=== PATIENT | male | born 1950 | race Caucasian/White ===

== ENCOUNTER 2017-08-19 14:00 | Outpatient (RCR) | payer MEDICARE, SELFPAY | END 2017-08-27 | LOC: PT 14:00 | PROVIDERS: Visit Provider Orthopaedic Surgery | DX: M47.812 Spondylosis without myelopathy or radiculopathy, cervical region (principal); M48.07 Spinal stenosis, lumbosacral region; M51.36 Other intervertebral disc degeneration, lumbar region | CPT/HCPCS: G8978; G8979; G8980; 97010; 97014; 97110; 97140; 97161; G0283 ==

== ENCOUNTER 2017-09-06 14:49 | Outpatient (RCR) | payer MEDICARE, SELFPAY | END 2017-09-06 14:50 | LOC: PT 14:49 | PROVIDERS: Family Provider Internal Medicine; Visit Provider Orthopaedic Surgery | DX: M47.812 Spondylosis without myelopathy or radiculopathy, cervical region (principal); M48.07 Spinal stenosis, lumbosacral region; M51.36 Other intervertebral disc degeneration, lumbar region | CPT/HCPCS: 97012 ==

== ENCOUNTER 2019-02-17 09:00 | Outpatient (RCR) | payer MEDICARE, SELFPAY ==
--- NOTE | 2019-04-06 11:47 | HMH.PTOPEV ---
PT Outpatient Evaluation Rehab PT Outpatient Evaluation Start: 02/14/19 15:09 Freq: Status: Active Protocol: Document 02/14/19 15:09 JOAQUIN (Rec: 02/14/19 15:18 JOAQUIN [id number]) Electronically Signed By Omar Lester, PT 02/14/19 15:09 Outpatient Therapy Subjective History Subjective History Pt reports h/o chronic LBP intermittently over the last ~ 2-3 years. Pt reports most recent exacerbation ~2-3 weeks , 'possibly from driving and lifting activities'. Pt reports improved s/s today, ' less intense right glut/ hamstring area pain', and R sided LBP, with intermittent radicular s/s into R lateral calf area. Chief Complaint Pain,Stiff,Paresthesia Symptom Type Ache,Sharp,Dull,Numbness, Tingling Symptoms Relieved By Rest/Positioning Symptoms Aggravated By Sitting,Bending/Stooping, Lifting Prior Functional Limitations None Current Functional Limitations Lifting,Housework,Driving, Sitting,Bending/Stooping Symptom Description Constant but Variable Level of pain today (0-10) 1 Pain scale - at its best (0-10) 1 Pain scale - at its worst (0-10) 7 Lumbopelvic Eval Posture Thoracic Spine Posture Standing Position Neutral Lumbar Spine Posture Standing Position Neutral Assistive device Assistive Devices None / NA Gait Observation General Gait Pattern Observation No Deviations/Normal Palapation tenderness right paraspinal tenderness Yes: 1-2/4 buttock tenderness Yes: 1/4 Lumbar/Sacral Palpation Findings Tenderness Accessory Movement L-spine Vertebrae Accessory Movements Central P/A [place] that Elicit Symptoms L4 right L5 right Range of Motion Lumbar Spine Active Flexion Range of 0-90 Motion (degrees) Lumbar Spine Active Extension Range of 0-30 Motion (degrees) Left Lumbar Spine Lateral Flexion Active 0-30 Range of Motion (degrees) Right Lumbar Spine Lateral Flexion 0-30 Active Range of Motion (degrees) Manual Muscle Test Bilateral Knee Extension Strength Grade 5 Normal Knee Flexion Strength Grade 5 Normal Hip Flexion Strength Grade 5 Normal Extensor Hallucis Longus Strength Grade 5 Normal Ankle Dorsiflexion Strength Grade 5 Normal Gastronemius/Soleus Strength Grade 5 Normal DTR Rt Patellar 1+ Lt Patella
== END 2019-02-17 09:05 | disposition home or self-care (01) ==
LOC: PT 09:00
DX: M54.31 Sciatica, right side (principal)
CPT/HCPCS: 97110; 97163

== ENCOUNTER → 2019-03-17 07:47 | Outpatient (CLI) | payer MEDICARE, SELFPAY ==
--- NOTE | 2019-03-17 07:49 | MR_ITS ---
MR lumbar spine wo con, MR 3-d myelogram/MRCP HISTORY: Low back pain radiating down right leg now with left-sided low back pain ITS.REASON: LUMBAGO OF MULTIPLE SITES IN SPINE WITH SCIATICA ORDERING PHYSICIAN: Ravi Rodrigez MD PATIENT AGE: 68 years Comparison: None TECHNIQUE: Standard multiplanar multiecho sequences are performed without contrast. 3-D MIP and myelographic images are also rendered and reviewed FINDINGS: There is normal alignment. The spinal cord ends at the T12-L1 level. T11-T12: Only imaged in the sagittal plane. Degenerative disc disease with minimal bulging disc causing narrowing of the canal abutting the cord with minimal effacement of the cord anteriorly T12-L1: Degenerative disc disease with minimal bulging discs along facet and ligamentum flavum hypertrophy with bilateral lateral recess and foraminal narrowing. Spinal stenosis with narrowing of the canal at 10 mm. There is a small right paracentral disc herniation with minimal superior extrusion at this level with severe right lateral recess and foraminal narrowing. There is some impingement upon the cauda equina. L1-L2: Degenerative disc disease with minimal bulging disc. There is a moderate-sized left paracentral disc herniation with superior extrusion causing severe left lateral recess and foraminal narrowing with impression upon the nerve roots on the left. There is borderline narrowing of the canal. L2-L3: Degenerative disc disease with bulging discs along with moderate facet and ligamentum flavum hypertrophy with severe bilateral lateral recess and moderate foraminal narrowing. The bulging disc is somewhat eccentric toward the left causing greater lateral recess narrowing on the left compared to the right side. There is narrowing of the canal. L3-L4: Degenerative disc disease with bulging disc and severe facet and ligamentous hypertrophy with severe bilateral foraminal narrowing severe bilateral lateral recess narrowing and severe canal stenosis of 8 mm. There is moderate to severe right foraminal narrowing and moderate left foraminal narrowing. L4-L5: Degenerative disc disease with bulging discs along facet hypertrophy with severe bilateral lateral recess narrowing and moderate bilateral foraminal narrowing. Canal stenosis is present at 2 mm. L5-S1: Degenerative disc disease with bulging disc with minimal broad-based central disc protrusion along with severe facet and ligamentous hypertrophy with severe bilateral lateral recess narrowing and canal stenosis of 10 mm. There is moderate bilateral foraminal narrowing. IMPRESSION: 1. Abnormal MRI of the lumbar spine. There is multilevel degenerative disc disease from T11 to S1 with multilevel canal stenosis and severe bilateral lateral recess narrowing with nerve root impingement at multiple levels. PLEASE SEE ABOVE FOR DETAILED DESCRIPTION AT EACH LEVEL. 2. There is a small right paracentral disc herniation with superior extrusion at T12-L1. 3. There is a moderate-sized left paracentral disc herniation with superior extrusion L1-L2
== END ==
PROVIDERS: PCP Internal Medicine Adolescent Medicine; Visit Provider Internal Medicine Adolescent Medicine
DX: M54.40 Lumbago with sciatica, unspecified side (principal)
CPT/HCPCS: 72148; 76376

== ENCOUNTER 2019-04-07 09:00 | Outpatient (RCR) | payer MEDICARE, SELFPAY ==
--- NOTE | 2019-04-03 09:46 | HMH.PTOPEV ---
PT Outpatient Evaluation Rehab PT Outpatient Evaluation Start: 04/03/19 08:53 Freq: Status: Active Protocol: Document 04/03/19 08:53 JOAQUIN (Rec: 04/03/19 09:46 JOAQUIN [id number]) Electronically Signed By Omar Lester, PT 04/03/19 08:53 Outpatient Therapy Subjective History Subjective History Pt reports h/o chronic LBP with most recent exacerbation beginning ~3 weeks ago. Pt reports L sided LBP, no radicular s/s w/this episode, and provocative w/L step-up and after riding tractor/mower . MRI shows multi-level degeneration throughout the lumbar spine. Chief Complaint Pain,Stiff,Weakness Symptom Type Ache,Dull Symptoms Relieved By Rest/Positioning,Heat Symptoms Aggravated By Sitting,Physical Activity, Lifting Prior Functional Limitations Lifting,Housework,Driving, Sitting Current Functional Limitations Lifting,Housework,Driving, Sitting Symptom Description Intermittent Level of pain today (0-10) 1 Pain scale - at its best (0-10) 0 Pain scale - at its worst (0-10) 6 Lumbopelvic Eval Posture Thoracic Spine Posture Standing Position Neutral Lumbar Spine Posture Standing Position Flattened Assistive device Assistive Devices None / NA Gait Observation General Gait Pattern Observation No Deviations/Normal Palapation tenderness left paraspinal tenderness Yes: 2-3/4 Lumbar/Sacral Palpation Findings Tenderness,Trigger Point, Muscle Guarding Accessory Movement L-spine Vertebrae Accessory Movements Central P/A [place] that Elicit Symptoms L3 left L4 left Range of Motion Lumbar Spine Active Flexion Range of 0-80 Motion (degrees) Lumbar Spine Active Extension Range of 0-20 Motion (degrees) Left Lumbar Spine Lateral Flexion Active 0-25 Range of Motion (degrees) Right Lumbar Spine Lateral Flexion 0-25 Active Range of Motion (degrees) Lumbar Spine ROM Limitations Soft Tissue Tightness,Pain Manual Muscle Test Bilateral Knee Extension Strength Grade 5 Normal Knee Flexion Strength Grade 5 Normal Hip Flexion Strength Grade 4 Good Hip External Rotation Strength Grade 4- Good- Hip Internal Rotation Strength Grade 4- Good- Extensor Hallucis Longus Strength Grade 5 Normal Ankle Dorsiflexion Strength Grade 5 Normal Gastronemius/Soleus Strength Grade 5 Normal DTR Rt Patellar
== END 2019-04-07 09:05 | disposition home or self-care (01) ==
LOC: PT 09:00
PROVIDERS: PCP Internal Medicine Adolescent Medicine; Visit Provider Internal Medicine Adolescent Medicine
DX: M54.40 Lumbago with sciatica, unspecified side (principal)
CPT/HCPCS: 97010; 97014; 97110; 97163; G0283

== ENCOUNTER → 2020-04-26 11:57 | Outpatient (CLI) | payer MEDICARE, SELFPAY ==
[2020-04-26 12:14] LABS: Basophils % 0.5 % (0.1-2.0); Eosinophils # 0.4 K/mm3 (0.0-0.4); Eosinophils % 5.4 % (0.1-12.0); Hematocrit 37.7 % (42.0-52.0); Hemoglobin 12.9 g/dL (14.1-18.0); Lymphocytes # 1.6 K/mm3 (0.7-4.5); Lymphocytes % 22.9 % (10-50); Mean Corpuscular HGB Conc 34.2 g/dL (31.8-35.4); Mean Corpuscular Hemoglobin 30.6 pg (27.0-31.2); Mean Corpuscular Volume 89.3 fl (80-94); Mean Platelet Volume 6.9 fl (7.4-10.4); Monocytes # 0.6 K/mm3 (0.1-1.0); Monocytes % 8.5 % (1.7-9.3); Neutrophils # 4.3 K/mm3 (1.8-7.8); Neutrophils % 62.7 % (37.0-80.0); Platelet Count 250 K/mm3 (142-424); Red Blood Count 4.22 M/mm3 (4.60-6.20); Red Cell Distribution Width 13.2 % (11.5-17.5); White Blood Count 6.8 K/mm3 (4.8-10.8)
[2020-04-26 12:40] LABS: Chloride 103 mmol/L (98-107); Potassium 4.8 mmoL/L (3.5-5.1); Sodium 140 mmol/L (136-145)
[2020-04-26 12:43] LABS: Alanine Aminotransferase 26 U/L (12-78); Alkaline Phosphatase 60 U/L (38-126); Anion Gap 10.8 mEq/L (5-15); Aspartate Amino Transferase 34 U/L (17-59); Bilirubin,Total 0.6 mg/dl (0.2-1.3); Blood Urea Nitrogen 18 mg/dl (9-20); Carbon Dioxide 31 mmol/L (22.0-30.0); Estimated Glomerular Filt Rate 74 ml/min (>60); GFR (African American) 89 ML/MIN (>60)
[2020-04-26 12:44] LABS: Albumin/Globulin Ratio 1.4 (1.1-1.8); Calcium 9.2 mg/dl (8.4-10.2); Globulin 2.8 g/dL (1.3-3.2); Glucose 67 mg/dl (74-100); Total Protein,Serum 6.8 g/dl (6.3-8.2)
== END ==
PROVIDERS: Visit Provider Internal Medicine Adolescent Medicine
DX: I10 Essential (primary) hypertension (principal)
CPT/HCPCS: 36415; 80053; 85025

== ENCOUNTER → 2020-08-28 10:24 | Outpatient (CLI) | payer MEDICARE, SELFPAY ==
[2020-08-29 12:22] LABS: Covid-19 Nasal PCR Sendout P&C Negative
== END ==
PROVIDERS: PCP Internal Medicine Adolescent Medicine; Visit Provider Internal Medicine Adolescent Medicine
DX: Z03.818 Encounter for observation for suspected exposure to other biological agents ruled out (principal)
CPT/HCPCS: U0004

== ENCOUNTER 2020-11-21 15:00 | Outpatient (RCR) | payer MEDICARE, SELFPAY | END 2020-11-21 15:05 | disposition home or self-care (01) | LOC: PT 15:00 | PROVIDERS: PCP Internal Medicine Adolescent Medicine; Visit Provider Orthopaedic Surgery | DX: M25.562 Pain in left knee (principal); Z96.652 Presence of left artificial knee joint | CPT/HCPCS: 97014; 97016; 97110; 97140; 97163; 97164; G0283 ==

== ENCOUNTER → 2021-06-06 12:40 | Outpatient (CLI) | payer MEDICARE, SELFPAY ==
[2021-06-06 12:56] LABS: Basophils % 0.4 % (0.1-2.0); Eosinophils # 0.4 K/mm3 (0.0-0.4); Eosinophils % 5.9 % (0.1-12.0); Hematocrit 40.9 % (42.0-52.0); Hemoglobin 14.2 g/dL (14.1-18.0); Lymphocytes # 1.4 K/mm3 (0.7-4.5); Lymphocytes % 21.7 % (10-50); Mean Corpuscular HGB Conc 34.6 g/dL (31.8-35.4); Mean Corpuscular Hemoglobin 30.8 pg (27.0-31.2); Mean Corpuscular Volume 88.9 fl (80-94); Mean Platelet Volume 7.1 fl (7.4-10.4); Monocytes # 0.7 K/mm3 (0.1-1.0); Monocytes % 10.3 % (1.7-9.3); Neutrophils % 61.7 % (37.0-80.0); Platelet Count 228 K/mm3 (142-424); Red Cell Distribution Width 13.3 % (11.5-17.5); White Blood Count 6.5 K/mm3 (4.8-10.8)
[2021-06-06 13:33] LABS: Chloride 102 mmol/L (98-107); Potassium 4.4 mmoL/L (3.5-5.1); Sodium 138 mmol/L (136-145)
[2021-06-06 13:36] LABS: Alanine Aminotransferase 34 U/L (12-78); Albumin Level 4.3 g/dl (3.5-5.0); Albumin/Globulin Ratio 1.5 (1.1-1.8); Alkaline Phosphatase 92 U/L (38-126); Anion Gap 12.4 mEq/L (5-15); Aspartate Amino Transferase 40 U/L (17-59); Bilirubin,Total 0.5 mg/dl (0.2-1.3); Blood Urea Nitrogen 12 mg/dl (9-20); Carbon Dioxide 28 mmol/L (22.0-30.0); Cholesterol 168 mg/dl (140-200); Estimated Glomerular Filt Rate 133 ml/min (>60); GFR (African American) 161 ML/MIN (>60); Globulin 2.9 g/dL (1.3-3.2); Total Protein,Serum 7.2 g/dl (6.3-8.2)
[2021-06-06 13:37] LABS: Calcium 9.2 mg/dl (8.4-10.2); Chol/HDL Ratio 3.9 (1-3.5); Glucose 94 mg/dl (74-100); HDL Cholesterol 43 mg/dl (40-60)
[2021-06-06 13:38] LABS: Triglycerides 434 mg/dl (30-150)
[2021-06-06 13:47] LABS: Direct LDL Cholesterol 75.46 mg/dL (100-129)
== END ==
PROVIDERS: Visit Provider Internal Medicine Adolescent Medicine
DX: I10 Essential (primary) hypertension (principal)
CPT/HCPCS: 36415; 80053; 80061; 85025

== ENCOUNTER → 2021-10-28 15:17 | Outpatient (CLI) | payer MEDICARE, SELFPAY | PROVIDERS: Visit Provider Internal Medicine Gastroenterology | DX: Z01.812 Encounter for preprocedural laboratory examination (principal); Z11.52 Encounter for screening for COVID-19; Z12.11 Encounter for screening for malignant neoplasm of colon | CPT/HCPCS: C9803; U0003; U0005 ==

== ENCOUNTER 2021-10-30 08:27 | Day surgery (SDC) | payer MEDICARE, SELFPAY ==
[2021-10-30 08:46] VITALS: BMI 32.3
[2021-10-30 08:51] VITALS: BP 132/72; PULSE 54; RESP 18; TEMP 36.3; O2SAT 96
--- NOTE | 2021-10-30 09:02 | P.PN_ITS ---
[facility] Anesthesia Checklist - Patient Identification Patient Identification: Arm Band - Structural Data Admitted From: Home Planned Operative Procedure/s: colonoscopy Consent for Planned Operative Procedure(s) Verified: Yes Verified Documents: Surgical Consent, History and Physical - NPO Status Verified Time NPO: 00:00 - Additional verifications Anesthesia Reactions: No - Airway Assessment C-Spine Mobility Assessed: Yes (mp2) TMJ Mobility Assessed: Yes Dentition: Good Dentition - Neurological Assessment Level of Consciousness: Awake, Alert - Anesthesia Plan Anesthesia Risk discussed: Yes Anesthesia Plan: Verified ASA Class: II Anesthesia Type: MAC [facility] History I have reviewed the patient's past medical history: Yes Medical History: Reports:: Hyperlipidemia, Hypertension Denies:: Cancer, Diabetes Mellitus Type 1, Diabetes Mellitus Type 2, Internal Pacemaker, MRSA, Seizures *Have you ever received a pneumonia vaccine?: No *Have you received a flu vaccine this season?: Yes Other Medical History: Reports: Arthritis Anesthesia experience/problems:: nac Laterality Cases: Bilateral: Arthroscopy Knee, Total Knee Replacement Other Surgeries: Yes: Colonoscopy. No: Pacemaker Amputation: No Fractures: No - *Social History Last grade of school completed: High school graduate Smoking Status: Current some day smoker Tobacco Type: cigars Alcohol Intake: current Alcohol Intake Frequency:: 3 or more drinks per day Substance Use Type: denies use *Occupational Status:: employed, retired Housing: house Household Members: spouse *Travel in the last 8 weeks: None Family Hx:: Hyperlipidemia, Hypertension
[2021-10-30 09:09] VITALS: O2SAT 96
[2021-10-30 09:30] VITALS: BP 111/68; PULSE 50; RESP 18; O2SAT 96
--- NOTE | 2021-10-30 09:31 | HMH.SCOPE ---
- Procedure: Date: 10/30/21 Patient Date of :: 1950 Procedure Performed:: Screening colonoscopy Indications:: History of Polyps Performing Provider:: Sally Lamb MD Referring Provider:: Brian Hernandez MD Sedation:: Propofol Procedure:: After placing the patient in the left lateral decubitus position, the colonoscopy was gently inserted into the rectum and under direct visualization advanced to the cecum which was identified by transillumination in the right lower quadrant, identification of the ileocecal valve, appendiceal orifice, and cecal strap. Color, texture, mucosa, and anatomy of the colon were carefully examined with the scope. Findings:: Anal canal: normal Rectum: normal Sigmoid colon: normal without polyps or inflammatory changes. Few scattered diverticuli noted. Descending colon: normal without polyps or inflammatory changes Splenic flexure: normal Transverse colon: normal without polyps or inflammatory changes Hepatic flexure: normal Ascending colon: normal without polyps or inflammatory changes Cecum: normal Terminal ileum: not visualized Impression: Normal colonoscopy with few scattered sigmoid diverticulosis Recommendations:: Follow up exam in Five years or so in view of history of polyps Complications:: None Estimated blood obtained (mL): 0
[2021-10-30 09:40] VITALS: BP 139/57; PULSE 58; RESP 18; O2SAT 96
[2021-10-30 09:50] VITALS: BP 129/77; PULSE 59; RESP 18; O2SAT 96
[2021-10-30 10:00] VITALS: BP 132/68; PULSE 51; RESP 18; O2SAT 96
== END 2021-10-30 10:00 | disposition home or self-care (01) ==
LOC: OUTP 08:29
PROVIDERS: PCP Internal Medicine Adolescent Medicine; Visit Provider Internal Medicine Gastroenterology
PROC: 0DJD8ZZ Inspection of Lower Intestinal Tract, Via Natural or Artificial Opening Endoscopic (ICD-10-PCS; CPT 45378; principal; 2021-10-30 09:30)
DX: Z12.11 Encounter for screening for malignant neoplasm of colon (principal); Z86.010 Personal history of colon polyps; K57.30 Diverticulosis of large intestine without perforation or abscess without bleeding; E78.5 Hyperlipidemia, unspecified; I10 Essential (primary) hypertension; M19.90 Unspecified osteoarthritis, unspecified site; Z82.49 Family history of ischemic heart disease and other diseases of the circulatory system; Z83.438 Family history of other disorder of lipoprotein metabolism and other lipidemia
CPT/HCPCS: G0121

== ENCOUNTER → 2022-02-02 10:48 | Outpatient (CLI) | payer MEDICARE, SELFPAY ==
--- NOTE | 2022-02-02 10:53 | XR_ITS ---
FINAL REPORT CLINICAL HISTORY: CERVICALGIA FINDINGS: CERVICAL SPINE Five views were obtained. The oblique views are suboptimal. There is no acute fracture. There are mild and moderate degenerative changes with multilevel osteophytes. There is facet arthropathy at multiple levels. There is anterolisthesis of C4 on C5. There is no soft tissue abnormality. IMPRESSION: Degenerative changes with no acute bony abnormality. Reviewed, Interpreted and Dictated by Deep Deras III, MD Transcribed by Ev Darby Authenticated and [facility]
== END ==
PROVIDERS: PCP Internal Medicine Adolescent Medicine; Visit Provider Internal Medicine Adolescent Medicine
DX: M54.2 Cervicalgia (principal)
CPT/HCPCS: 72050

== ENCOUNTER 2022-05-08 08:00 | Outpatient (RCR) | payer MEDICARE, SELFPAY | END 2022-05-08 08:05 | disposition home or self-care (01) | LOC: PT 08:00 | PROVIDERS: PCP Internal Medicine Adolescent Medicine; Visit Provider Anesthesiology Pain Medicine | DX: M47.812 Spondylosis without myelopathy or radiculopathy, cervical region (principal) | CPT/HCPCS: 20560; 97010; 97014; 97035; 97110; 97140; 97163; G0283 ==

== ENCOUNTER → 2022-06-01 13:19 | Outpatient (CLI) | payer MEDICARE, SELFPAY ==
--- NOTE | 2022-06-01 13:29 | XR_ITS ---
FINAL REPORT CLINICAL HISTORY: LEFT HIP PAIN COMPARISON: 03/08/2016 FINDINGS: LEFT HIP 2 views were obtained. There is no acute fracture or dislocation. There are mild degenerative changes in both hips. Moderate degenerative changes are seen in the lower lumbar spine. There is no soft tissue abnormality. IMPRESSION: Degenerative changes similar to the prior exam. Reviewed, Interpreted and Dictated by Deep Deras III, MD Transcribed by Jyothi Wylie Authenticated and [facility]
== END ==
PROVIDERS: PCP Nurse Practitioner Family; Visit Provider Nurse Practitioner Family
DX: M25.552 Pain in left hip (principal)
CPT/HCPCS: 73502

== ENCOUNTER 2022-07-21 15:00 | Outpatient (RCR) | payer MEDICARE, SELFPAY ==
--- NOTE | 2022-06-15 16:28 | HMH.PTOPWND ---
Rehab Outpt Wound Evaluation Rehab OP Wound Evaluation Start: 06/15/22 16:21 Freq: Status: Active Protocol: Document 06/15/22 16:21 CARLOTA (Rec: 06/15/22 16:28 PHORNE [id number]) E-signed By Jaxson Kathleen PT Subjective/History History History Pt is 72 yowm who presents with B LE x several years, worse with dependent positioning. He reports recent vacation that required significant walking and resulted in increased edema. He reports no pain or tenderness associated with the edema. He has PMH of R PKA, L TKA, and HTN. Subjective Subjective No pain this date, 0. 1+ pitting edema to B ankle and foot. mildly plantarflexed 1st ray noted on L foot incidentally. Lymphedema Eval Classification of Lymphedema Secondary Lymphedema Yes Stemmer's sign Stemmer's Sign no Stage of Lymphedema Lymphedema stages Stage I (Pitting edema, reduces w/ elevation, no fibrosis) Skin Changes Dry Skin Yes Discoloration of Skin Yes Other Changes Yes Affected Extremities Areas Affected by Lymphedema/Edema Right Lower Extremity,Left Lower Extremity Manual Lymphatic Drainage Treatment Area MLD Treatment Area Right Lower Extremity,Left Lower Extremity Wound Problems/Impairments Impairments Problems/Impairmments Impaired Endurance,Impaired Walking,Impaired Standing, Impaired Recreational Activities,Increased Edema, Lymphedema Present,Impaired Self Care/Self Management Prognosis Rehab Potential Good Clinical Impression Consistent with Diagnosis Yes Short Term Goals Number of Weeks 2 Decrease Edema Yes: 0 pitting edema Patient to Understand Lymphedema Yes Treatment and Exercises 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
--- NOTE | 2022-07-21 15:26 | HMH.RHREAS ---
Rehab Reassessment Rehab OP Re-assessment Start: 07/21/22 15:20 Freq: Status: Active Protocol: Document 07/21/22 15:21 PHOKEILA (Rec: 07/21/22 15:26 PHORNE [id number]) E-signed By Jaxson Kathleen, PT Rehab Re-assessment Subjective Subjective Pt reports he continues to have no pain in B LE at this time. I feel about the same, but my legs look so much better than they did. Objective Objective Notes Circumferential MEausrements: R LE total 295.0 cm L LE total 308.5 cm. No pitting edema noted this date. Assessment Progress Assessment Progressing as Expected Assessment Notes Pt has shown significant improvement in the pitting edema of B LE that was present initially. No tenderness to palpation noted and he is wearing compression as necessary. Patient goals met ST,2 LT,2,3,4,5 Goals Not Met none Revised Goals none Plan Plan Will D/C to follow HEP at this time and re-initiate treatment as needed. Frequency of Therapy 0 x/wk Duration of therapy 0 wks Time and Billing Re-Eval Time 14 Re-Eval Billing Units 1 PHYSICIAN CERTIFICATION: I certify the specified therapy services for Joe Lester are required, authorized, and reviewed every 30 days.
== END 2022-07-21 15:05 | disposition home or self-care (01) ==
LOC: PT 15:00
PROVIDERS: PCP Nurse Practitioner Family; Visit Provider Nurse Practitioner Family
DX: R60.0 Localized edema (principal); L98.9 Disorder of the skin and subcutaneous tissue, unspecified
CPT/HCPCS: 97140; 97162; 97164

== ENCOUNTER 2022-07-21 16:00 | Outpatient (RCR) | payer MEDICARE, SELFPAY | END 2022-07-21 16:05 | disposition home or self-care (01) | LOC: PT 16:00 | PROVIDERS: PCP Nurse Practitioner Family; Visit Provider Anesthesiology Pain Medicine | DX: M50.90 Cervical disc disorder, unspecified, unspecified cervical region (principal); M47.812 Spondylosis without myelopathy or radiculopathy, cervical region | CPT/HCPCS: 97140; 97163 ==

== ENCOUNTER → 2022-10-30 10:13 | Outpatient (POV) | payer MEDICARE, SELFPAY ==
[2022-10-30 10:17] VITALS: BP 140/68; PULSE 54; RESP 20; O2SAT 98; BMI 33.0
--- NOTE | 2022-10-30 11:43 | EXP.PAIN.OV ---
HPI Data of Consult Patient: new to practice Consult date: 10/30/22 Requesting Physician: Amy Forrester APRN Primary Care Provider: Felicity Jay APRN Consult Narrative Reason for consult: Low back pain, bilateral knee pain, neck pain History of present illness: Mr. Lester is a 72 year old male who presents today as a new patient. He is a referral from Felicity Jay's office. Today he rates his pain a 1 out of 10. Patient states he has low back pain along with bilateral knee pain and neck pain. Patient states he has been experiencing low back pain for approximately 3 to 4 years that is unrelated to any specific injury or trauma. He states this has progressed since and he does notice it on a more regular basis. Patient does describe this as a achy sensation that is worse with increased activity that is more prominent on the right side. Patient states that he did take a trip last fall that ended up requiring a lot of walking and he had significant difficulty with this. He states he frequently has to take multiple breaks in order to get some relief. Patient states he has also had bilateral knee replacements in the past. He states he had a right partial approximately 5 years ago and then later a left total replacement in 2019. Patient states he did really well with the right side and was still able to get down on his knees to do activities however following his left total replacement he did have increased stiffness and pain. Patient does state that his left knee is the more problematic joint. He states he often feels like he is shuffling with his feet due to his knee pain and frequently causes issues with stumbling. Patient does state his neck pain has been going on for some time as well and that he does lack mobility within this location and occasional aches and pains. Patient states he did go to [facility] in [place] who did injections with his neck however he did not notice significant benefit. Patient states he has tried [id number] medications and is currently prescribed Celebrex twice a day that does provide significant improvement of his pain symptoms. He also states he has not tried heat or ice in the past. Patient has tried topicals on rare occasions however this did not provide any additional relief. He has had physical therapy for his knees and back including dry needling that did provide temporary relief. Patient states he has also had injections in his knees before that did provide significant relief however this was before having them replaced. He states that when he is sitting he has no pain whatsoever and that he does tend to lean forward doing activities such as showering and shaving due to pain improvement in that positioning. Patient is not on any scheduled medications. His Jeanmarie is [phone]. CC: Amy Forrester APRN [facility] Disclaimer: The information contained in this section may have been updated after the patient was seen, as this information can be updated by other users. Medical History (Updated 10/30/22 @ 11:59 by Amy Forrester APRN) Arthritis Depression HLD (hyperlipidemia) HTN (hypertension) Surgical History (Updated 10/30/22 @ 10:37 by Anel Luz RN) H/O arthroscopic knee surgery Hx of colonoscopy Family History (Updated 10/30/22 @ 10:35 by Anel Luz RN) Other Hyperlipidemia Hypertension Social History (Updated 10/30/22 @ 10:37 by Anel Luz RN) Smoking Status: Current some day smoker tobacco type: cigars alcohol intake: current substance use type: denies use current occupational status: retired Travel in the last 8 weeks: None household members: spouse housing: house current occupational exposures/hazards: No caffeine: Yes Review of Systems Review of Systems Review of systems:: pertinent systems reviewed and negative unless documented below Review of systems (narrative): Review of Systems: General: No recent weight mace
== END ==
PROVIDERS: PCP Nurse Practitioner Family; Visit Provider Nurse Practitioner Family
DX: M51.36 Other intervertebral disc degeneration, lumbar region (principal); M24.28 Disorder of ligament, vertebrae; M48.062 Spinal stenosis, lumbar region with neurogenic claudication; M47.816 Spondylosis without myelopathy or radiculopathy, lumbar region; M25.561 Pain in right knee; M25.562 Pain in left knee
CPT/HCPCS: 99202; G0463

== ENCOUNTER 2022-11-06 11:11 | Day surgery (SDC) | payer MEDICARE, SELFPAY ==
[2022-11-06 11:30] VITALS: BP 144/66; PULSE 66; RESP 18; TEMP 37; O2SAT 97; BMI 33.0
[2022-11-06 13:25] VITALS: BP 168/85; PULSE 59; RESP 18; O2SAT 98
[2022-11-06 13:26] VITALS: BP 168/85; PULSE 59; RESP 18; O2SAT 98
--- NOTE | 2022-11-06 13:35 | EXP.PAIN.PRO ---
Procedure Date: 11/06/22 Time: 13:35 Anesthesiologist:: Jose Bueno MD Complications:: None Pre-procedure Diagnosis:: Degenerative disc disease of lumbar spine with lumbar spinal stenosis and neurogenic claudication symptoms Post-procedure Diagnosis:: Same Indications for Procedure:: This patient is a pleasant 72-year-old white male who we have been treating for low back pain with lumbar spinal stenosis and neurogenic claudication symptoms. He has increasing pain while walking and standing. MRI does show significant stenosis. We will do a lumbar pleural steroid injection with epidurogram today to assess levels of stenosis and candidacy for minimally base of lumbar decompression. Procedure Details:: Informed consent was obtained and the risk and benefits of the procedure was explained to the patient. The patient was taken to the procedure room. The patient was placed prone on the procedure table. The patient was prepped and draped in sterile fashion. C-arm fluoroscopy was used to view the lumbar spine. Skin and subcutaneous tissues were anesthetized using lidocaine. I placed an 18-gauge epidural needle and advanced into the L4-L5 interspace using fluoroscopic guidance and [id number] to air. After confirmation of needle placement in the epidural space with dye I injected 2 mL of lidocaine 1.5% with Depo-Medrol 80 mg. Patient tolerated the procedure well with no complications. Plan and Disposition:: Based on epidurogram patient does have significant stenosis at L3-L4 and L4-L5 and L5-S1. I do believe he would be a good candidate for minimally invasive lumbar decompression bilateral L3-4, 4 5 and L5-S1. We will follow-up with him in clinic to discuss further as patient wants to think about it.
[2022-11-06 13:37] VITALS: BP 147/66; PULSE 56; RESP 20
== END 2022-11-06 13:39 | disposition home or self-care (01) ==
PROVIDERS: PCP Nurse Practitioner Family; Visit Provider Anesthesiology
DX: M51.36 Other intervertebral disc degeneration, lumbar region (principal); M48.062 Spinal stenosis, lumbar region with neurogenic claudication
CPT/HCPCS: 62323; J1040; Q9966

== ENCOUNTER → 2022-11-25 08:51 | Outpatient (POV) | payer MEDICARE, SELFPAY ==
[2022-11-25 09:11] VITALS: BP 145/68; PULSE 62; RESP 18; O2SAT 98; BMI 33.0
--- NOTE | 2022-11-25 12:12 | EXP.PAIN.SOA ---
[facility] Pain Management SOAP Note Subjective:: Patient is a pleasant 72-year-old male who presents today for follow-up of lumbar epidural steroid injection with epidurogram at L4-L5 on 11/06/2022. We are currently treating the patient for degenerative disc disease of lumbar spine with lumbar radiculopathy symptoms, lumbar spinal stenosis with neurogenic claudication symptoms. Today he rates his pain a 4 out of 10. Patient states he initially got the day of the injection relief for several hours while the numbing medication was in however after that point he did not notice significant relief. Patient was found to have significant stenosis at L3-L4, L4-L5 and L5-S1 bilaterally. At our last visit we did discuss with him that he may benefit from a minimally invasive lumbar decompression however at that time he wanted to wait. Patient does describe his pain as an aching, throbbing sensation that is worse with increased activity. He states it does interfere with his ability to perform activities of daily living such as cooking or cleaning. He frequently has to stop and take multiple breaks with even the slightest activity such as doing the dishes. Patient states that leaning over or sitting relieves his pain symptoms. Patient has tried ofxe-jml-kewrygx medications such as Tylenol and ibuprofen along with muscle relaxers with no additional relief. Patient was prescribed compounding cream at our last visit however he states he has not noticed improvements at this point. His Jeanmarie is [id number]. Its been reviewed and appropriate. Review of Systems: General: No recent weight changes, no fever, no sleep disturbances Respiratory: No cough, no shortness of air, no recurring pulmonary infections Cardiovascular/peripheral vascular: No chest pain, no palpitations, no edema, no shortness of breath Gastrointestinal: No new onset incontinence, normal bowel movements reported Genitourinary: No new onset incontinence Musculoskeletal: Low back pain, leg pain Psychiatric: [Normal mood/affect] Neurological: [Denies weakness in extremities], [denies balance issues] Objective:: Physical Exam: General: Alert and oriented x3, no acute distress, pleasant and cooperative Lungs: Respirations even and unlabored, symmetrical chest expansion Eyes: PERRL Musculoskeletal: Flexion and extension of lumbar [spine] somewhat guarded secondary to pain, [antalgic gait noted] positive shopping cart sign Neurological: Speech clear, no gross sensory deficit Assessment:: Degenerative disc disease of lumbar spine with lumbar radiculopathy symptoms, spinal stenosis with neurogenic claudication symptoms, lumbar facet arthropathy, lumbar ligamentum flavum hypertrophy, low back pain, bilateral knee pain, neck pain Plan:: Patient continues to experience significant pain in his low back with limited range of motion of his lumbar spine. Patient's epidurogram did show significant narrowing in his lumbar spine at L3-4, L4-5 and L5-S1. I have discussed with the patient that he may benefit from the minimally invasive lumbar decompression procedure. Risk and benefits were discussed with the patient and he would like to proceed forward with this plan of care. He is not on any blood thinners. We will schedule him for a minimally invasive lumbar decompression bilaterally at L3-L4, L4-L5 and L5-S1. Patient has been instructed to contact the clinic with any concerns before the next appointment. Dr. Bueno has reviewed this note and agrees with this plan of care. This note was dictated using voice recognition software and make contain errors or omissions. [facility] Disclaimer: The information contained in this section may have been updated after the patient was seen, as this information can be updated by other users. Medical History Arthritis Depression HLD (hyperlipidemia) HTN (hypertension) Surgical History (Reviewed 11/06/22 @ 11:31 by Viviana Castellanos RN
== END ==
PROVIDERS: PCP Nurse Practitioner Family; Visit Provider Nurse Practitioner Family
DX: M51.16 Intervertebral disc disorders with radiculopathy, lumbar region (principal); M47.26 Other spondylosis with radiculopathy, lumbar region; M48.062 Spinal stenosis, lumbar region with neurogenic claudication; M25.561 Pain in right knee; M25.562 Pain in left knee
CPT/HCPCS: 99212; G0463

== ENCOUNTER → 2023-01-06 15:07 | Outpatient (CLI) | payer MEDICARE, SELFPAY ==
[2023-01-06 15:55] LABS: Basophils % 0.3 % (0.1-2.0); Eosinophils # 0.2 K/mm3 (0.0-0.4); Eosinophils % 3.1 % (0.1-12.0); Hematocrit 41.1 % (42.0-52.0); Hemoglobin 13.8 g/dL (14.1-18.0); Lymphocytes # 1.4 K/mm3 (0.7-4.5); Lymphocytes % 20.6 % (10-50); Mean Corpuscular HGB Conc 33.4 g/dL (31.8-35.4); Mean Corpuscular Hemoglobin 29.4 pg (27.0-31.2); Mean Platelet Volume 8.1 fl (7.4-10.4); Monocytes # 0.5 K/mm3 (0.1-1.0); Monocytes % 6.6 % (1.7-9.3); Neutrophils # 4.8 K/mm3 (1.8-7.8); Neutrophils % 69.4 % (37.0-80.0); Platelet Count 248 K/mm3 (142-424); Red Blood Count 4.68 M/mm3 (4.60-6.20); Red Cell Distribution Width 13.9 % (11.5-17.5); White Blood Count 6.9 K/mm3 (4.8-10.8)
[2023-01-06 16:45] LABS: Blood Urea Nitrogen 17 mg/dl (9-20); Calcium 9.1 mg/dl (8.4-10.2); Carbon Dioxide 31 mmol/L (22.0-30.0); Chloride 97 mmol/L (98-107); Estimated Glomerular Filt Rate 73 ml/min (>60); GFR (African American) 89 ML/MIN (>60); Glucose 124 mg/dl (74-100); Sodium 140 mmol/L (136-145)
== END ==
PROVIDERS: PCP Nurse Practitioner Family; Visit Provider Anesthesiology
DX: Z01.818 Encounter for other preprocedural examination (principal)
CPT/HCPCS: 36415; 80048; 85025

== ENCOUNTER 2023-01-08 06:02 | Day surgery (SDC) | payer MEDICARE, SELFPAY ==
[2023-01-07 15:13] VITALS: BMI 33.0
[2023-01-08 06:36] VITALS: BP 128/76; PULSE 55; RESP 18; TEMP 36.8; O2SAT 98
--- NOTE | 2023-01-08 07:06 | EXP.ANES.CKL ---
[facility] Disclaimer: The information contained in this section may have been updated after the patient was seen, as this information can be updated by other users. Medical History Arthritis Depression HLD (hyperlipidemia) HTN (hypertension) Surgical History H/O arthroscopic knee surgery Hx of colonoscopy Family History Other Hyperlipidemia Hypertension Social History (Updated 01/08/23 @ 06:36 by Guy Coleman RN) Smoking Status: Former smoker alcohol intake: never substance use type: denies use current occupational status: employed and retired Travel in the last 8 weeks: Inside the [place] household members: spouse housing: house current occupational exposures/hazards: No caffeine: Yes [facility] Anesthesia Checklist Patient Identification Patient Identification: Arm Band Structural Data Admitted From: Home Planned Operative Procedure/s: Lumbar decompression Consent for Planned Operative Procedure(s) Verified: Yes Verified Documents: Surgical Consent and History and Physical NPO Status Verified Time NPO: 00:00 Additional verifications Patient : No Anesthesia Reactions: No Hx Blood Transfusions: No Blood Transfusion Reaction: No Cephalosporin Allergy: No Previous Colonoscopy: No Airway Assessment C-Spine Mobility Assessed: Yes TMJ Mobility Assessed: Yes Dentition: Good Dentition Neurological Assessment Level of Consciousness: Awake, Alert, Appropriate and Follows Commands Hx Seizures: No Numbness or tingling in extremities: No Anesthesia Plan Anesthesia Risk discussed: Yes ASA Class: II Anesthesia Type: MAC
[2023-01-08 09:27] VITALS: BP 111/66; PULSE 64; RESP 20; TEMP 36.6; O2SAT 94
[2023-01-08 09:42] VITALS: BP 129/71; PULSE 66; RESP 20; TEMP 36.6; O2SAT 96
[2023-01-08 09:57] VITALS: BP 143/82; PULSE 59; RESP 20; TEMP 36.6; O2SAT 94
[2023-01-08 10:12] VITALS: BP 158/82; PULSE 56; RESP 20; TEMP 36.6; O2SAT 95
[2023-01-08 10:28] VITALS: BP 146/81; PULSE 57; RESP 20; TEMP 36.6; O2SAT 96
--- NOTE | 2023-01-08 12:37 | EXP.OP.NOTE ---
Date of procedure: 01/08/23 Pre-op Diagnosis:: Degenerative disc disease of lumbar spine with lumbar spinal stenosis and neurogenic claudication symptoms Post-op Diagnosis:: Same Procedure performed:: Minimally invasive lumbar decompression bilateral L3-L4 and L4-L5 Surgeon:: Jose Bueno MD HOOP RIVETING MACHINE OPERATOR:: Vicki Reyes Anesthesia: MAC Estimated blood loss (mL): 1 Clinical Note:: The patient is a pleasant 72-year-old white male who we are treating for degenerative disc disease of lumbar spine with lumbar spinal stenosis and neurogenic claudication symptoms. Based on MRI and epidurogram he does have significant stenosis at L3-L4 and L4-L5 bilaterally. He is more symptomatic on his right side. He presents today for minimally invasive lumbar decompression bilateral L3-L4 and L4-L5. Operative findings:: None Operative note:: Informed consent was obtained and the risk and benefits of the procedure was explained to the patient. The patient was taken to the operating room and placed prone on the procedure table. The patient was prepped and draped in sterile fashion. C-arm fluoroscopy was used to view the lumbar spine. The skin and subcutaneous tissues were anesthetized using lidocaine. A epidural needle was inserted and advanced into the L3-L4 interspace. After confirmation of needle placement in the epidural space, dye was injected in a contralateral oblique view. There was an epidurogram seen at L3-L4 and L4-L5. Significant stenosis was seen at L3-L4 and L4-L5. The skin and subcutaneous tissues again were anesthetized using lidocaine. An incision was made and a access trocar was inserted and advanced to contact at the superior aspect of the L4 lamina on the left side. And a contralateral oblique view the side was viewed. Using a bone rongeur and tissue sculptor we debulked bone from the L3-L4 and L4-L5 interspace on the left side. We then used the tissue sculptor to debulk ligament at the L3-L4 and L4-L5 interspace on the left side. We then moved over to the right side and debulked bone and ligament from L3-L4 and L4-L5 on the right side. There is opening of the stenosis at L3-L4 and L4-L5 bilaterally. The access trocar was removed. A total of 3 mL's of dye was used. There is good spread of dye above and below this level as well. We injected 80 mg Depo-Medrol through the epidural needle. The epidural needle was removed and dressings were placed. This encounter for exam is for normal comparison and control in a clinical research program Patient was taken to recovery in stable condition. Patient was discharged home neurologically intact and with good relief of pain symptoms. Plan and disposition: We will follow-up with this patient in 2 weeks. Will reevaluate symptoms at that time. Condition: stable Disposition: PACU Complications:: None
== END 2023-01-08 10:28 | disposition home or self-care (01) ==
PROVIDERS: PCP Nurse Practitioner Family; Visit Provider Anesthesiology
DX: M48.062 Spinal stenosis, lumbar region with neurogenic claudication (principal); Z00.6 Encounter for examination for normal comparison and control in clinical research program; M51.16 Intervertebral disc disorders with radiculopathy, lumbar region
CPT/HCPCS: 0275T; 96374; C1889; J1040

== ENCOUNTER → 2023-01-22 08:31 | Outpatient (POV) | payer MEDICARE, SELFPAY ==
--- NOTE | 2023-01-22 09:23 | A.OFFVIS_ITS ---
[facility] Pain Management SOAP Note Subjective:: Patient is a pleasant 72-year-old male that comes our clinic today for follow-up visit after receiving L3-4, L4-5 mild procedure. Patient reporting 70 to 80% improvement in his overall bilateral hip and leg radicular symptoms. However, patient is complaining of bilateral posterior hip pain. Low lumbar pain. 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 After this he noticed pain in the low lumbar and bilateral posterior hip pain. Upon examination he has extreme point tenderness over the bilateral sacroiliac joints. He has positive Kiana's test. Positive Gaenslen's test. Positive bilateral sacroiliac joint compression test. I discussed in detail with the patient regarding bilateral sacroiliac joint injections. Answered his questions. Patient states this bilateral low lumbar off midline back pain is different than the pain prior to the mild procedure. His Jeanmarie #[id number] has been reviewed and appropriate. Patient has tried and failed some conservative measures for this above said pain such as NSAIDs, exercising Tylenol, home exercise program. Objective:: Patient is awake alert [place] x3. In no acute distress. Flexion-extension lumbar spine somewhat guarded secondary to pain. Deep tendon reflexes upper and lower extremities normal. Motor strength upper and lower extremities normal. There is no gross sensory deficit. Gait is normal. Assessment:: Degenerative disc disease lumbar spine multilevels. Lumbar spinal stenosis. Lumbar radiculopathy. Bilateral sacroiliitis. Plan:: We will plan bilateral sacroiliac joint injection. I discussed in detail with the patient regarding the injections. Answered his questions. He wishes to proceed. [facility] Disclaimer: The information contained in this section may have been updated after the patient was seen, as this information can be updated by other users. Medical History Arthritis Depression HLD (hyperlipidemia) HTN (hypertension) Surgical History H/O arthroscopic knee surgery Hx of colonoscopy Family History Other Hyperlipidemia Hypertension Social History (Updated 01/08/23 @ 06:36 by Guy Coleman RN) Smoking Status: Former smoker alcohol intake: never substance use type: denies use current occupational status: employed and retired Travel in the last 8 weeks: Inside the [place] household members: spouse housing: house current occupational exposures/hazards: No caffeine: Yes
[2023-01-22 09:58] VITALS: BP 144/69; PULSE 55; RESP 19; O2SAT 99; BMI 33.0
== END ==
PROVIDERS: PCP Nurse Practitioner Family; Visit Provider Nurse Anesthetist, Certified Registered
DX: M51.16 Intervertebral disc disorders with radiculopathy, lumbar region (principal); M48.061 Spinal stenosis, lumbar region without neurogenic claudication; M46.1 Sacroiliitis, not elsewhere classified
CPT/HCPCS: 99212; G0463

== ENCOUNTER 2023-02-02 08:30 | Day surgery (SDC) | payer MEDICARE, SELFPAY ==
[2023-02-02 08:52] VITALS: BP 145/77; PULSE 59; RESP 18; TEMP 36.5; O2SAT 96; BMI 33.0
[2023-02-02 09:22] VITALS: BP 137/95; PULSE 58; RESP 18; O2SAT 96
--- NOTE | 2023-02-02 09:26 | P.PCN_ITS ---
Procedure Date: 02/02/23 Time: 09:20 Anesthesiologist:: Thomas Villalba CRNA Complications:: None Pre-procedure Diagnosis:: Bilateral sacroiliitis. Post-procedure Diagnosis:: Same. Indications for Procedure:: Patient is a very pleasant 72-year-old male that comes our clinic today for bilateral sacroiliac joint injections. Upon examination patient has extreme point tenderness over the bilateral sacroiliac joints. Patient has positive Kiana's test. Positive Gaenslen's test. Patient has difficulty transitioning from sitting to standing. He rates his pain 7/10 Procedure Details:: Informed consent was obtained and the risks and benefits of the procedure were explained to the patient.~ The patient was taken to the procedure room and noninvasive monitors were placed including a noninvasive blood pressure cuff and pulse oximeter.~ The patient was placed prone on the procedure table. Both hips were cleansed using Betadine as a cleansing solution. C-arm fluoroscopy was used to view the right sacroiliac joint.~ The skin and subcutaneous tissues were anesthetized using lidocaine 1.5% and a 25-gauge needle.~ After this, a 22-gauge spinal needle was inserted under fluoroscopic guidance into the inferior aspect of the right sacroiliac joint.~ Omnipaque dye was injected and good spread was seen throughout the joint.~ After this, approximately 5 mL of bupivacaine, 0.25% and Depo-Medrol, 40 mg was incrementally injected into the right sacroiliac joint. We then moved to the left sacroiliac joint.~ The skin and subcutaneous tissues were anesthetized using lidocaine 1.5% and a 25-gauge needle.~ After this, a 22- gauge spinal needle was inserted under fluoroscopic guidance into the inferior aspect of the left sacroiliac joint.~ Omnipaque dye was injected and good spread was seen throughout the joint. After this, approximately 5 mL of bupivacaine, 0.25% and Depo-Medrol, 40 mg was incrementally injected into the left sacroiliac joint.~ The patient tolerated the procedure well with no complications. Plan and Disposition:: Patient was discharged without incident.
[2023-02-02 09:33] VITALS: BP 126/94; PULSE 55; RESP 18; O2SAT 96
== END 2023-02-02 09:33 | disposition home or self-care (01) ==
PROVIDERS: PCP Nurse Practitioner Family; Visit Provider Nurse Anesthetist, Certified Registered
DX: M46.1 Sacroiliitis, not elsewhere classified (principal)
CPT/HCPCS: 27096; G0260; J1040

== ENCOUNTER → 2023-02-17 09:37 | Outpatient (POV) | payer MEDICARE, SELFPAY ==
--- NOTE | 2023-02-17 10:06 | EXP.PAIN.SOA ---
[facility] Pain Management SOAP Note Subjective:: Patient is a pleasant 72-year-old male who presents today for follow-up of bilateral SI injections on 02/02/2023. We are currently treating the patient for degenerative disc disease of lumbar spine with lumbar radiculopathy symptoms, lumbar spinal stenosis with neurogenic claudication symptoms, status post minimally invasive lumbar decompression. Today he rates his pain a 8 out of 10. 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 Patient states following this he did actually work with a skid steer that caused significant pain. Today he states that he does have pain in his low back along both sides and radiating into his bilateral hips and down his upper thighs. Patient does state that his low back is still doing pretty good overall and will occasionally bother him following his lumbar decompression. Patient states that some days he is able to walk for longer periods of time without taking as many breaks however this does change from a day-to-day basis. Patient states that he does still frequently catch himself leaning when doing activities such as the dishes. Patient is not on any scheduled medications. His Jeanmarie is [id number]. Its been reviewed and appropriate. Patient has tried jclw-jtf-dkorqvx medications such as Tylenol and ibuprofen along with muscle relaxers with no additional relief.? Patient was prescribed compounding cream at our last visit however he states he has not noticed improvements at this point.? His Jeanmarie is [id number].? Its been reviewed and appropriate. Review of Systems: General: No recent weight changes, no fever, no sleep disturbances Respiratory: No cough, no shortness of air, no recurring pulmonary infections Cardiovascular/peripheral vascular: No chest pain, no palpitations,? no edema, no shortness of breath Gastrointestinal: No new onset incontinence, normal bowel movements reported Genitourinary: No new onset incontinence Musculoskeletal: Low back pain, bilateral hip pain Psychiatric: [Normal mood/affect] Neurological: [Denies weakness in extremities], [denies balance issues] Objective:: Physical Exam: General: Alert and oriented x3, no acute distress, pleasant and cooperative Lungs: Respirations even and unlabored, symmetrical chest expansion Eyes: PERRL Musculoskeletal: Flexion and extension of lumbar [spine] somewhat guarded secondary to pain, [antalgic gait noted] point tenderness along bilateral SIs with positive bilateral Kiana's, Stepan's, Gaenslen's, compression and distraction exam Neurological: Speech clear, no gross sensory deficit Assessment:: Degenerative disc disease of lumbar spine with lumbar radiculopathy symptoms, lumbar spinal stenosis with neurogenic claudication symptoms, status post minimally invasive lumbar decompression, sacroiliitis Plan:: Patient is experiencing worsening pain in his low back bilaterally with radiating symptoms into his hips and upper thighs. Patient did have limited range of motion and a positive bilateral SIs during today's exam. I have discussed with the patient that he may benefit from repeat SI injections however at this time he would like to wait. We will follow-up with the patient in 1 month for reevaluation of symptoms and plan of care. Patient has been instructed to contact the clinic with any concerns before the next appointment. Dr. Bueno has reviewed this note and agrees with this plan of care. This note was dictated using voice recognition software and make contain errors or omissions. [facility] Disclaimer: The information contained in this section may have been updated after the patient was seen, as this information can be updated by other users. Medical History Arthritis Depression HLD (hyperlipidemia) H
[2023-02-17 12:32] VITALS: BP 146/81; PULSE 62; RESP 18; O2SAT 97; BMI 33.0
== END ==
PROVIDERS: PCP Nurse Practitioner Family; Visit Provider Nurse Practitioner Family
DX: M51.16 Intervertebral disc disorders with radiculopathy, lumbar region (principal); M48.062 Spinal stenosis, lumbar region with neurogenic claudication; M46.1 Sacroiliitis, not elsewhere classified
CPT/HCPCS: 99212; G0463

== ENCOUNTER → 2023-03-22 12:43 | Outpatient (CLI) | payer MEDICARE, SELFPAY ==
--- NOTE | 2023-03-22 12:48 | MR_ITS ---
FINAL REPORT TECHNIQUE: Multiplanar MR without contrast CLINICAL HISTORY: LEFT HIP PAIN. LOW BACK PAIN WITH BILATERAL LEG PAIN. PAIN WHEN LAYING, STANDING AND SITTING FOR LONG PERIODS. COMPARISON: 03/17/2019 FINDINGS: Sagittal images show normal vertebral height. Alignment is normal. There are discogenic marrow signal changes at multiple levels. There is new endplate edema at L2-3. T12-L1: Moderate diffuse disc bulge with moderate facet arthropathy. Moderate central canal stenosis and moderate bilateral neural foraminal narrowing. L1-2: Moderate to large diffuse disc bulge. Moderate facet arthropathy. Previously noted left lateral canal disc extrusion is no longer evident. L2-3: Moderate diffuse disc bulge with moderate facet arthropathy. Moderate central canal stenosis and neural foraminal narrowing. L3-4: Disc disease and facet arthropathy contributing to severe central canal stenosis, slightly worse. Moderate neural foraminal narrowing. L4-5: Moderate diffuse disc bulge and facet arthropathy. Severe central canal stenosis, slightly worse. Moderate bilateral neural foraminal narrowing. L5-S1: Moderate diffuse disc bulge and facet arthropathy. Moderate to severe central canal stenosis and neural foraminal narrowing. IMPRESSION: Severe diffuse degenerative changes resulting in advanced multilevel canal stenosis and neural foraminal narrowing, slightly worse. Previously noted disc extrusion at L1-2 is no longer evident. Reviewed, Interpreted and Dictated by Trever Galloway MD Transcribed by Opal Traylor Authenticated and [facility]
== END ==
PROVIDERS: PCP Nurse Practitioner Family; Visit Provider Nurse Practitioner Family
DX: M54.41 Lumbago with sciatica, right side; M54.42 Lumbago with sciatica, left side; M25.552 Pain in left hip
CPT/HCPCS: 72148; 76376

== ENCOUNTER → 2023-05-07 10:06 | Outpatient (CLI) | payer MEDICARE, SELFPAY ==
--- NOTE | 2023-05-07 10:16 | XR_ITS ---
FINAL REPORT CLINICAL HISTORY: SCOLIOSIS FINDINGS: SPINE THORACOLUMBAR STANDING (SCOLIOSIS) There is 14 degrees dextroscoliosis centered on T9. There is 13 degrees of levoscoliosis centered on L2. There are moderate to severe degenerative changes with multilevel osteophytes. IMPRESSION: Scoliosis as above with moderate to severe degenerative changes. Reviewed, Interpreted and Dictated by Deep Deras III, MD Transcribed by Opal Traylor Authenticated and [facility]
--- NOTE | 2023-05-07 10:16 | XR_ITS ---
FINAL REPORT CLINICAL HISTORY: SCOLIOSIS FINDINGS: LUMBAR SPINE Four views were obtained. There is no acute fracture. There are moderate to severe degenerative changes with multilevel osteophytes. There is levoscoliosis. There is no evidence of malalignment with flexion and extension maneuvers. IMPRESSION: Degenerative changes as detailed above. Reviewed, Interpreted and Dictated by Deep Deras III, MD Transcribed by Opal Traylor Authenticated and . [facility]
== END ==
PROVIDERS: PCP Nurse Practitioner Family; Visit Provider Neurological Surgery
DX: M41.9 Scoliosis, unspecified (principal); M54.50 Low back pain, unspecified
CPT/HCPCS: 72081; 72110

== ENCOUNTER → 2023-05-25 08:07 | Outpatient (CLI) | payer MEDICARE, SELFPAY ==
--- NOTE | 2023-05-25 08:11 | CT_ITS ---
FINAL REPORT TECHNIQUE: Thin section axial images were obtained through the lumbar spine without contrast. Sagittal and coronal reconstruction images were obtained from the axial data. Exam was performed using dose reduction techniques. CLINICAL HISTORY: SCOLIOSIS FINDINGS: There is mild levoscoliosis. Klein angle from L1-2 L5 measures 15 degrees. No acute fracture is identified. There is multilevel degenerative disc disease, most pronounced at L1-2 and L2-3. Paraspinal soft tissues are within normal limits. There is no paraspinal mass or fluid collection. IMPRESSION: Mild levoscoliosis. Multilevel degenerative disc disease. Reviewed, Interpreted and Dictated by Ana Murray MD Transcribed by Opal Traylor Authenticated and [facility]
== END ==
PROVIDERS: PCP Nurse Practitioner Family; Visit Provider Neurological Surgery
DX: M41.9 Scoliosis, unspecified (principal)
CPT/HCPCS: 72131

== ENCOUNTER 2023-05-28 08:30 | Outpatient (RCR) | payer MEDICARE, SELFPAY ==
--- NOTE | 2023-04-26 12:15 | HMH.PTOPWND ---
Rehab Outpt Wound Evaluation Rehab OP Wound Evaluation Start: 04/26/23 12:07 Freq: Status: Active Protocol: Document 04/26/23 12:08 CARLOTA (Rec: 04/26/23 12:15 CARLOTA [id number]) E-signed By Jaxson Kathleen, PT Subjective/History History History This is the initial PT eval for Joe Lester, 73 yowm who presents with c/o B LE edema increased x ~ 2 mos, R worse than L. He has hx of chronic B LE edema in the past several years, but this episode began with worsening overall mobility due to increased chronic LBP due to stenosis. He also reports he feels his compression stockings needed to be replaced which allowed his edema to increase. He reports mild increased pain with increase in edema, but no increased tenderness at this time. Subjective Subjective Current pain 3/10, at worst 6/ 10 in B LE. 0/4 TTP noted this date. 2+ pitting edema noted in B lower legs. Lymphedema Eval Classification of Lymphedema Secondary Lymphedema Yes Stemmer's sign Stemmer's Sign no Stage of Lymphedema Lymphedema stages Stage I (Pitting edema, reduces w/ elevation, no fibrosis) Skin Changes Dry Skin Yes Taut, Shiny Skin Yes Discoloration of Skin Yes Other Changes Yes Pain Scale Pain Scale (0-10) 6 Affected Extremities Areas Affected by Lymphedema/Edema Right Lower Extremity,Left Lower Extremity Manual Lymphatic Drainage Treatment Area MLD Treatment Area Right Lower Extremity,Left Lower Extremity Wound Problems/Impairments Impairments Problems/Impairmments Impaired Endurance,Impaired Gait Pattern,Impaired Walking, Impaired Standing,Impaired Lifting,Impaired Household Care,Impaired Recreational Activities,Increased Edema, Lymphedema Present,Subjective C/O Pain,Impaired Self Care/
--- NOTE | 2023-05-28 11:38 | HMH.RHREAS ---
Rehab Reassessment Rehab OP Re-assessment Start: 04/26/23 12:07 Freq: Status: Active Protocol: Document 05/28/23 11:31 CARLOTA (Rec: 05/28/23 11:37 [email or web address] [id number]) E-signed By Jaxson Kathleen PT Rehab Re-assessment Subjective Subjective Current pain 10. Pt reports he sees a difference in his edema and feels better with daily activities. He reports wearing compression garments daily. Objective Objective Notes Circumferential Measurements: R LE total is 300.5 cm which is -9.4 since IE. L LE total is 303.5 cm which is -12.1 cm since IE. Pain /10. No pitting edema noted Mild Fibrotic edema noted in B lower legs. Assessment Progress Assessment Progressing as Expected Assessment Notes Pt has shown significant reduction in overall edema and has improved his ability to perform some ADLs. Following all instructions well for hoem treatment. He continues to need skilled intervention to return to prior level of function. Patient goals met ST,2,3,4 LT,4,5 Goals Not Met LT,3,6,7 Plan Plan Continue per initial POC Frequency of Therapy 1 x/wk Duration of therapy 2-3 wks Time and Billing Re-Eval Time 14 Re-Eval Billing Units 1 PHYSICIAN CERTIFICATION: I certify the specified therapy services for Joe Lester are required, authorized, and reviewed every 30 days.
== END 2023-05-28 08:35 | disposition home or self-care (01) ==
LOC: PT 08:30
PROVIDERS: PCP Nurse Practitioner Family; Visit Provider Nurse Practitioner Family
DX: R60.0 Localized edema (principal)
CPT/HCPCS: 97140; 97163; 97164

== ENCOUNTER 2023-10-07 11:00 | Outpatient (RCR) | payer MEDICARE, SELFPAY | END 2023-10-07 12:00 | disposition home or self-care (01) | LOC: PT 11:00 | PROVIDERS: PCP Nurse Practitioner Family; Visit Provider Neurological Surgery | DX: M41.35 Thoracogenic scoliosis, thoracolumbar region | CPT/HCPCS: 97163; 97164; 97530 ==

== ENCOUNTER 2023-11-19 08:46 | Outpatient (CLI) | payer MEDICARE, SELFPAY ==
[2023-11-19 09:25] LABS: Basophils # 0.1 K/mm3 (0-0.2); Basophils % 0.7 % (0.1-2.0); Eosinophils # 0.2 K/mm3 (0.0-0.4); Eosinophils % 3.6 % (0.1-12.0); Hematocrit 41.8 % (42.0-52.0); Hemoglobin 13.9 g/dL (14.1-18.0); Lymphocytes # 1.3 K/mm3 (0.7-4.5); Lymphocytes % 19.1 % (10-50); Mean Corpuscular HGB Conc 33.3 g/dL (31.8-35.4); Mean Corpuscular Hemoglobin 31.2 pg (27.0-31.2); Mean Corpuscular Volume 93.6 fl (80-94); Mean Platelet Volume 8.1 fl (7.4-10.4); Monocytes # 0.5 K/mm3 (0.1-1.0); Monocytes % 7.2 % (1.7-9.3); Neutrophils # 4.6 K/mm3 (1.8-7.8); Neutrophils % 69.5 % (37.0-80.0); Platelet Count 234 K/mm3 (142-424); Red Blood Count 4.46 M/mm3 (4.60-6.20); Red Cell Distribution Width 13.7 % (11.5-17.5); White Blood Count 6.6 K/mm3 (4.8-10.8)
[2023-11-19 09:52] LABS: Hemoglobin A1C 5.6 % (4.0-6.0)
[2023-11-19 10:00] LABS: Albumin Level 4.4 g/dl (3.5-5.0); Albumin/Globulin Ratio 1.8 (1.1-1.8); Alkaline Phosphatase 68 U/L (38-126); Anion Gap 10.4 mEq/L (5-15); Bilirubin,Total 0.6 mg/dl (0.2-1.3); Blood Urea Nitrogen 14 mg/dl (9-20); Calcium 9.2 mg/dl (8.4-10.2); Carbon Dioxide 28 mmol/L (22.0-30.0); Chloride 102 mmol/L (98-107); Chol/HDL Ratio 4.2 (1-3.5); Cholesterol 154 mg/dl (140-200); Estimated Glomerular Filt Rate 111 ml/min (>60); GFR (African American) 134 ML/MIN (>60); Globulin 2.4 g/dL (1.3-3.2); Glucose 106 mg/dl (74-100); HDL Cholesterol 37 mg/dl (40-60); Potassium 4.4 mmoL/L (3.5-5.1); Sodium 136 mmol/L (136-145); Total Protein,Serum 6.8 g/dl (6.3-8.2); Triglycerides 162 mg/dl (30-150); VLDL Cholesterol 32 mg/dL (0-40)
[2023-11-19 10:01] LABS: Alanine Aminotransferase 29 U/L (12-78); Aspartate Amino Transferase 30 U/L (17-59)
[2023-11-19 10:11] LABS: Direct LDL Cholesterol 71.97 mg/dL (100-129)
[2023-11-19 10:19] LABS: 25-OH Vitamin D, Total 53.7 ng/mL (30-100)
[2023-11-19 10:31] LABS: Prostate Specific Ag Screen 0.6 ng/ml (0.0-4.0); Thyroid Stimulating Hormone 1.69 uIU/mL (0.465-4.68)
[2023-11-19 10:50] LABS: Vitamin B12 303 pg/mL (239-931)
== END 2023-11-19 23:59 ==
LOC: LAB 08:48
PROVIDERS: PCP Nurse Practitioner Family; Visit Provider Nurse Practitioner Family
DX: R73.03 Prediabetes (principal); I10 Essential (primary) hypertension; E78.00 Pure hypercholesterolemia, unspecified; R40.0 Somnolence; M54.40 Lumbago with sciatica, unspecified side; E55.9 Vitamin D deficiency, unspecified; N40.1 Benign prostatic hyperplasia with lower urinary tract symptoms; Z12.5 Encounter for screening for malignant neoplasm of prostate
CPT/HCPCS: 36415; 80053; 80061; 82306; 82607; 83036; 84443; 85025; G0103

== ENCOUNTER → 2023-12-29 09:00 | Outpatient (CLI) | payer MEDICARE, SELFPAY | LOC: SL 12-30 09:02 | PROVIDERS: PCP Nurse Practitioner Family; Visit Provider Nurse Practitioner Family | DX: G47.33 Obstructive sleep apnea (adult) (pediatric) (principal); G47.36 Sleep related hypoventilation in conditions classified elsewhere | CPT/HCPCS: G0399 ==

== ENCOUNTER 2025-02-06 09:49 | Outpatient (CLI) | payer MEDICARE, SELFPAY ==
--- OUTSIDE RECORDS SUMMARY | 2024-08-05 17:00 | XMS_ITS ---
Author Organization [facility] Address [address] [place] [address] Care Team Providers Care Mess Attendant Name Role Phone Self Referral, Self Primary Care Provider Neisha Roy Unavailable Migration, Provider Unavailable Unavailable Allergies Allergen (clinical drug ingredient) Drug/Non Drug Allergy documented on EMR Reaction Allergy Type Onset Date Status OYSTERS (uncoded) stomach upset Allergy Active [facility] Encounter Medications Medication SIG (Take, Route, Frequency, Duration) Notes Start Date End Date Status hydroCHLOROthiazide 25 MG TAKE 1 TABLET BY MOUTH EVERY DAY for 90 Days Active Celecoxib 100 MG for 6 Days Ac tive FLUOXETINE (EQV-PROZAC) 20 MG TAKE 1 TABLET BY MOUTH EVERY DAY for 30 DAYS *Please review for potential replacement for e-prescription and drug interaction check* Active Lisinopril 40 MG for 90 Days N ot-Taking Sertraline HCl 25 MG for 30 Days Active Rosuvastatin Calcium *Please rev iew and pick correct strength-formula tion from [employer] options. If intended option is not shown, discontinue and re-order from Quick Search* Active traZODone HCl 100 MG 1 tab(s) orally 2 times a day Active Furosemide 40 MG for 30 Days A ctive amLODIPine Besylate *Please revi ew and pick correct strength-formula tion from [employer] options. If intended option is not shown, discontinue and re-order from Quick Search* Active Encounters Encounter Location Date Provider Diagnosis [facility] [address] [place] [address] 08/05/2024 Provider Migration Plan Of Treatment No Information Progress Notes * Virgilio KARUDOB:1950 (74 yo M)Acc No.[id number]:08/05/2024 Patient: Virgilio HALL Provider: Kristy escalante Migration :1950 A ge:74 Y S ex:Male Date:08/05/2024 Address:[facility] [address] [facility], [id number] Pcp:Self Self Referral Subjective: * Chief Complaints: * 1 . Multum To Medispan Conversion Encounter. * Medical History: * Medications: T aking amLODIPine Besylate , Notes to Pharmacist: *Please review and pick correct strength-formulation from Med[employer] options. If intended option is not shown, discontinue and re-order from Quick Search*, Taking Rosuvastatin Calcium , Notes to Pharmacist: *Please review and pick correct strength-formulation from Medispan options. If intended option is not shown, discontinue and re-order from Quick Search*, Taking traZODone HCl 100 MG Tablet 1 tab(s) orally 2 times a day , Taking Furosemide 40 MG Tablet , Taking Sertraline HCl 25 MG Tablet , Taking hydroCHLOROthiazide 25 MG Tablet TAKE 1 TABLET BY MOUTH EVERY DAY , Taking Celecoxib 100 MG Capsule , Taking FLUOXETINE (EQV-PROZAC) 20 MG TABLET TAKE 1 TABLET BY MOUTH EVERY DAY , Notes to Pharmacist: *Please review for potential replacement for e-prescription and drug interaction check*, Not-Taking Lisinopril 40 MG Tablet * Allergies: O YSTERS: stomach upset - Allergy - Criticality High. Objective: * Vitals: Assessment: Plan: * Treatment: * Billing Information: * Visit Code: * Procedure Codes: * Electronic signature of Prov ider Migration on 02/06/2025 at 09:54 AM EDT Sign off status: Pending * Provider: Kristy Shafer Date: 10/06/2023 Generated for Mila rodriguez/Davin/Kathryn on: 02/06/2025 09:54 AM EDT
--- OUTSIDE RECORDS SUMMARY | 2024-12-02 17:30 | XMS_ITS ---
Author Organization [facility] Address [address] [place] [address] Care Team Providers Care Math And Science Division Chair Name Role Phone Felicity Jay Primary Care Provider [phone] FELICITY JAY Unavailable Unavaila ble Migration, Provider Unavailable Unavailable Allergies Allergen (clinical drug ingredient) Drug/Non Drug Allergy documented on EMR Reaction Allergy Type Onset Date Status OYSTERS (uncoded) terrible stoma ch pains Allergy Active [facility] Conversion Encounter Medications Medication SIG (Take, Route, Frequency, Duration) Notes Start Date End Date Status ZEPBOUND PEN 5 MG/0.5 ML 5 MG SUBCUTANEO USLY ONCE A WEEK for 28 DAYS *Please review for potential replacement for e-prescription and drug interaction check* 11/27/2024 Active amLODIPine Besylate 10 MG 1 tab(s) orally once a day for 30 days Active Levocetirizine Dihydrochloride 5 MG 1 tab(s) orally once a day (in the evening) for 90 days 10/05/2024 Active NEBIVOLOL 10 MG TAKE 1 TABLET BY MOUTH EVERY DAY for 90 *Please review for potential replacement for e-prescription and drug interaction check* Active hydroCHLOROthiazide 25 MG 1 tab(s) orally once a day for 90 days Active Azelastine HCl 0.05 % 1 gtt in each affected eye 2 times a day for 30 days 12/17/2022 Active Tamsulosin HCl 0.4 MG 2 caps orally once a day for 30 days Active Celecoxib 100 MG 1 cap(s) orally 2 times a day for 90 days Active traZODone HCl 100 MG 1 tab(s) orally once a day (at bedtime) for 90 days Active Sertraline HCl 50 MG 1 tab(s) orally once a day for 90 days Active Sildenafil Citrate 100 MG 1 tab(s) orally once a day as needed for 30 days 03/26/2023 Active Vitamin C 500 MG 1 tab(s) orally once a day for 30 day(s) Active TUMERICK 500MG ONE TABLET PO ONCE A DAY *Please review for potential replacement for e-prescription and drug interaction check* Active Rosuvastatin Calcium 20 MG 1 tab(s) orally once a day for 90 days Active Montelukast Sodium 10 MG 1 tab(s) orally once a day for 90 days 08/16/2023 Active Azelastine HCl *Please review and pick correct strength-formula tion from [employer] options. If intended option is not shown, discontinue and re-order from Quick Search* Active Fish Oil 1000 MG 1 cap(s) orally daily Active Vitamin D3 1000 UNIT as directed orally once a day for 30 day(s) Active Encounters Encounter Location Date Provider Diagnosis [facility] [address] [place] [address] 12/02/2024 Provider Migration Nasal congestion R09.81 Assessments Encounter Date Diagnosis (ICD Code) Assessment Notes Treatment Notes Treatment Clinical Notes Section Notes 12/02/2024 Nasal congestion (ICD-10 - R09.81) Plan Of Treatment Medication Medication Name Sig Start Date Stop Date Notes ZEPBOUND PEN 5 MG/0.5 ML 5 MG SUBCUTANEO USLY ONCE A WEEK for 28 DAYS 11/27/2024 *Please review for potential replacement for e-prescription and drug interaction check* amLODIPine Besylate 10 MG 1 tab(s) orall y once a day for 30 days Levocetirizine Dihydrochloride 5 MG 1 tab(s) orally once a day (in the evening) for 90 days 10/05/2024 hydroCHLOROthiazide 25 MG 1 tab(s) orall y once a day for 90 days Progress Notes * Joe KAUR RDOB:[birth year] (74 yo M)Acc No.[id number]:12/02/2024 Patient: Joe HALL Provider: P boris Migration :1950 A ge:74 Y S ex:Male Date:12/02/2024 Address:[facility] [address] [place], [id number] Pcp:Felicity Jay Subjective: * Chief Complaints: * 1 . Multum To Medispan Conversion Encounter. * Medical History: * Medications: T aking Azelastine HCl , Notes to Pharmacist: *Please review and pick correct strength-formulation from [facility] options. If intended option is not shown, [...] interaction check*. * * Electronic signature of Sunny morris Migration on 02/06/2025 at 09:53 AM EDT Sign off status: Pending * Provider: Kristy escalante Migration Date: 0 12/02/2024 Generated for Mila rodriguez/Davin/Belkisitting on: 0 02/06/2025 09:53 AM EDT
--- OUTSIDE RECORDS SUMMARY | 2025-02-06 09:54 | XMS_ITS | Data Portability ---
Author Organization [facility] & [facility] ADMIN Address [address] [place] [address] Care Team Providers Care Skein Winding Operator Name Role Phone TORRI JAY Primary Care Provider TORRI JAY Referring Provider [phone] Assessment No assessment recorded. Plan of Treatment Reminders Order Date Submit Date Provider Last Modified By Organization Details Last Modified Time Details Appointments None record ed. Lab None record ed. Referral None record ed. Procedures None record ed. Surgeries None record ed. Imaging None record ed. Medication Orders None record ed. Patient TargetsNo targets recorded. Patient InstructionsNo instructions recorded. Reason for Referral None Reported. Procedures Surgical History Date Name Laterality Status Provider Name and Address Organization Details Recorded Time Nasal Endoscopy completed Augusto Vance [facility] & [place] 10/06/2023 11:51:03 Imaging Results None recorded. Procedure Notes None recorded. Medical Equipment None Reported. Allergies No known drug allergies Medications Name Sig Start Date Stop Date Status Note LastModified by Organization Details LastModified Time azelastine 0.05 % eye drops active Not Available Not Available Not Available azithromyci n 250 mg tablet 10/04 completed Not Available Not Available Not Available benzonatate 200 mg capsule TAKE 1 CAPSULE BY MOUTH THREE TIMES DAILY FOR 7 DAYS NEEDED FOR COUGH 10/06 completed Not Available Not Available Not Available sildenafil 100 mg tablet TAKE 1 TABLET BY MOUTH ONCE DAILY NEEDED FOR 30 DAYS 10/06 completed Not Available Not Available Not Available tamsulosin 0.4 mg capsule TAKE 2 CAPSULES BY MOUTH EVERY DAY active Not Available Not Available No t Available trazodone 100 mg tablet TAKE 1 TABLET BY MOUTH EVERY DAY AT BEDTIME active Not Available Not Available No t Available amlodipine 10 mg tablet TAKE 1 TABLET BY MOUTH EVERY DAY active Not Available Not Available No t Available sertraline 25 mg tablet TAKE 1 TABLET BY MOUTH EVERY DAY active Not Available Not Available No t Available montelukast 10 mg tablet TAKE 1 TABLET BY MOUTH EVERY DAY active Not Available Not Available No t Available hydrochloro thiazide 25 mg tablet TAKE 1 TABLET BY MOUTH EVERY DAY active Not Available Not Available No t Available celecoxib 100 mg capsule TAKE 1 CAPSULE BY MOUTH TWICE DAILY active Not Available Not Available No t Available rosuvastati n 20 mg tablet TAKE 1 TABLET BY MOUTH EVERY DAY active Not Available Not Available No t Available nebivolol 10 mg tablet TAKE 1 TABLET BY MOUTH EVERY DAY 10/06 completed Not Available Not Available Not Available Vitals Date Recorded Body height Body mass index (BMI) Body weight Body temperature Provider Name and Address Organization Details Last Updated DateTime 10/06/2023 180.34 cm 36 kg/m2 649660.83 g 98.6 [degF] [facility]aja [facility] [place] 10/06/2023 11:20:35 Social History None recorded. Functional Status None recorded. Mental Status None recorded. Family History Nothing Reported. Medical History Condition Response Allergies/Hayfever Y Heart Problems N None N Heart Conditions N Emphysema N Migraines N Thyroid Problems N Developmental Delay N Depression N Glaucoma N Anemia N Immune System Disorder N Anesthesia Complications N Heart Attack ([place]) N Anxiety Disorder N Diabetes N Bleeding Disorder N Arthritis Y Hearing Loss N Tuberculosis N Acid Reflux (GERD) N Hyperlipidemia Y Cancer N Stroke N Asthma N Sleep Disorder N GERD/Reflux N Heart Disease N Fibromyalgia N Headaches N Hypertension Y Speech Delay N Kidney Disease N Past Encounters Encounter ID Performer Location Encounter Start Date Encounter Closed Date Diagnosis/Indication Diagnosis SNOMED-CT Code Diagnosis ICD10 Code Diagnosis Note [id number] Antoinette Cruz MD [facility] [id number] [facility], [place] [address] 10/06/2023 11:01:45 10/06/2023 12:01:07 Posterior rhinorrhea 45274402 R09.82 Nasal congestion 6855082 0 R09.81 Explained I saw nothing concerning on nasal endoscopy today in the office. No mass/tumor /lesion/po lyp seen. Explained he is on a number of medication s that can cause nasal congestion ; especially at night. One of those being a beta ga. I would recommend he try using nasal cones at night. He can get these easily without prescripti on from [employer]. Informatio n was given to him about these. I am happy to allergy test him, but I am not sure this would change his current symptoms. He would like to hold off on the allergy testing for now. Should he change his mind, we will be happy to get him scheduled. Otherwise, I will see him back as needed. Health Concerns Section Related Observation LastModified by Organization Detai ls LastModified Time None Recorded Concern Status LastModified by Organization Details LastModified Time None Recorded Advance Directives Directive None Recorded Payers Insurance Date Sequence Insurance Name Policy Number Policy Sinha Covered Member ID Sinha Member ID Guarantor Name 10/06/2023 1 [employer] (MEDICARE REPLACEMENT/ ADVANTAGE - PPO) Joe Lester [id number] Joe Lester Notes Date Note Type Note Provider Name and Address Organization Details Recorded Time 10/06/2023 text/html 10/06/23- patient is here for nasal and chest congestion with trouble breathing from both sides. Patient states this has been going on his whole life but he got sick at [place] and he was having trouble breathing when lying down. He has a lot of phlegm with post nasal drainage, denies facial pain or pressure. He has a history of allergies and bronchitis. He has been on Azithromycin. He says as a child he was on allergy shots for a few years but is unsure why he stopped them. He has not been allergy tested recently. He uses flonase daily for a couple years and tried Montelukast for one month. He is not a smoker but will occasionally smoke marijuana. He feels as though his hearing is good. Antoinette Cruz MD [address], [place], [address], [facility] [place] & [place] 10/06/2023 15:36:06
--- OUTSIDE RECORDS SUMMARY | 2025-02-06 09:54 | XMS_ITS | Patient Health Record ---
Author Organization [facility] G[place] Address [address] [place] [address] Care Team Providers Care Obstetrics And Gynecology Professor Name Role Phone Felicity Jay Primary Care Provider FELICITY JAY Unavailable Unavaila ble Migration, Provider Unavailable Unavailable Allergies Allergen (clinical drug ingredient) Drug/Non Drug Allergy documented on EMR Reaction Allergy Type Onset Date Status OYSTERS (uncoded) terrible stoma ch pains Allergy Active Reason For Referral Reason [facility] [place] to take over from [facility] Diagnosis 1 Chronic allergic rhi nitis (J30.9) Referral Organization [facility] CAITLIN LOPEZ Referring Provider First Name Felicity Referring Provider Last Name Misty Referring Provider Speciality [facility] Referral Priority Routine Medications Medication SIG (Take, Route, Frequency, Duration) Notes Start Date End Date Status Nebivolol HCl 10 MG TAKE 1 TABLET BY MOUTH EVERY DAY for 90 Active Rosuvastatin Calcium 20 MG 1 tab(s) orally once a day for 90 days Active Zepbound 10 MG/0.5ML 0.5 mL Subcutaneous once a week for 28 days 01/23/2025 Active TUMERICK 500MG ONE TABLET PO ONCE A DAY *Please review for potential replacement for e-prescription and drug interaction check* Active traZODone HCl 100 MG 1 tab(s) orally once a day (at bedtime) for 90 days Active Vitamin C 500 MG 1 tab(s) orally once a day for 30 day(s) Active Montelukast Sodium 10 MG TAKE 1 TABLET B Y MOUTH DAILY for 90 Active Vitamin D3 1000 UNIT as directed orally once a day for 30 day(s) Active Levocetirizine Dihydrochloride 5 MG 1 tab(s) orally once a day (in the evening) for 90 days Active hydroCHLOROthiazide 25 MG 1 tab(s) orall y once a day for 90 days Active amLODIPine Besylate 10 MG 1 tab(s) orall y once a day for 30 days Active Azelastine HCl 0.05 % 1 gtt in each affected eye 2 times a day for 30 days 12/17/2022 Active Sildenafil Citrate 100 MG 1 tab(s) orall y once a day as needed for 30 days 03/26/2023 Active Sertraline HCl 50 MG TAKE 1 TABLET BY MOUTH DAILY for 90 Active Fish Oil 1000 MG 1 cap(s) orally daily Active Azelastine HCl *Please review and pick correct strength-formula tion from [employer] options. If intended option is not shown, discontinue and re-order from Quick Search* Active Celecoxib 100 MG TAKE 1 CAPSULE BY MOUTH TWICE DAILY for 90 Active Tamsulosin HCl 0.4 MG TAKE 2 CAPSULES BY MOUTH DAILY for 30 Active Immunizations Vaccine Route Administration Date Status Comme nts Boostrix Unknown 10/13/2017 Administered Pneumovax 23 IM Intramuscular 10/19/2022 Administered Social History Tobacco Use: Social History Observation Description Date Details (start date - stop date) Never Smoker NA - NA Smoking: Question Answer Notes Are you a: nonsmoker Problems Problem Type SNOMED Code ICD Code Onset Dates Problem Status W/U Status Risk Notes Problem 468029516773924 Lumbago with sci atica, right side (M54.41) Active confirmed Problem 506314370 Lumbago with sci atica, left side (M54.42) Active confirmed Problem 28655758 Other obstructiv e and reflux uropathy (N13.8) Active confirmed Problem 727144391 Localized edema (R60.0) Active confirmed Problem Osteoarthritis (074034607) Osteoarthritis (M19.90) Active confirmed Problem 09959693 Hypertension, essential (I10) Active confirmed Problem 56575319 Chronic allergic rhinitis (J30.9) Active confirmed Problem 309703989 BMI 33.0-33.9,ad ult (Z68.33) Active confirmed Problem 51267634 Left hip pain (M25.552) Active confirmed Problem 34192201 Other chronic pa in (G89.29) Active confirmed Problem 09030452 Skin lesion (L98.9) Active confirmed Problem 185142904 Erectile dysfunc tion, unspecified erectile dysfunction type (N52.9) Active confirmed Problem Voiding dysfunction (369513149) Voiding dysfunction (N39.8) Active confirmed Problem 01700499526717367 Lymphedema of both lower extremities (I89.0) Active confirmed Problem Obstructive sleep apnea syndrome (65110747) CEM (obstructive sleep apnea) (G47.33) Active confirmed Problem 243438768 Lower extremity edema (R60.0) Active confirmed Problem 58859061 Restless leg (G25.81) Active confirmed Problem 110130486 BMI 35.0-35.9,ad ult (Z68.35) Active confirmed Problem 838576622310 Daytime somnolen ce (R40.0) Active confirmed Problem 61791455 Sleep disorder (G47.9) Active confirme d Problem 015701664 Benign prostatic hyperplasia with lower urinary tract symptoms (N40.1) Active confirmed Problem 423271545 Pure hypercholesterolemia (E78.00) Active confirmed Problem 01769102 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 confirmed Problem 953075763750460 Obesity, Class I I, BMI 35-39.9 (E66.9) Active confirmed Problem 38768650 Major depressive disorder with single episode, 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) Active confirmed Problem 633727892 Lumbago of multi ple sites in spine with sciatica (M54.40) Active confirmed Problem 992485097 Decreased hearin g of both ears (H91.93) Active confirmed Problem 632139575 Alcohol dependen ce, daily use (F10.20) Active confirmed Problem 134729143 Gastroesophageal reflux disease, unspecified whether esophagitis present (K21.9) Active confirmed Problem 060659666 Cervical arthrit is (M47.812) Active confirmed Vital Signs Heart Rate 64 /min 02/06/2025 Temperature 97.0 degrees Fahrenheit 02/06/2025 Blood pressure diastolic 72 mm Hg 02/06/2025 Height 6 ft in 02/06/2025 Blood pressure systolic 118 mm Hg 02/06/2025 Weight 245 lbs 02/06/2025 BMI 33.22 kg/m2 02/06/2025 Encounters Encounter Location Date Provider Diagnosis [facility] [address] [place] [address] 12/02/2024 Provider Migration Nasal congestion R09.81 [facility] [address] [place] [address] 02/06/2025 Felicity Misty Obesity, Class II, B MS 35-39.9 E66.812 ; Weight loss counseling, encounter for Z71.3 ; BMI 33.0-33.9,adult Z68.33 and Chronic allergic rhinitis J30.9 [facility] [address] [address] 03/08/2024 Felicity Misty Toe pain, right M79. 674 and Toe pain, left M79.675 [facility] [address] [place] [address] 07/20/2024 Felicity Misty Bronchitis J40 and L oose stools R19.5 [facility] [place] [address] [place] [address] 10/05/2024 Felicity Misty Diastasis recti M62. 08 ; Abdominal wall defect, acquired M95.8 ; Nasal congestion R09.81 ; Obesity, Class II, BMI 35-39.9 E66.812 ; BMI 35.0-35.9,adult Z68.35 and Weight loss counseling, encounter for Z71.3 [facility] JESSICA [address] [address] 01/23/2025 Felicity Misty [facility] [place] [address] [place] [address] 04/03/2024 Felicity Misty [facility] [place] [address] [place] [address] 04/11/2024 Felicity Misty Chronic allergic rhinitis J30.9 [facility] [address] [address] 04/12/2024 Felicity Misty [facility] [place] [address] [address] 05/12/2024 Felicity Misty Chronic allergic rhinitis J30.9 [facility] [place] [address] [address] 06/14/2024 Felicity Misty [facility] [place] [address] [address] 07/14/2024 Felicity Misty [facility] [place] [address] [address] 07/24/2024 Felicity Misty [facility] [place] [address] [place] [address] 09/05/2024 Felicity Misty CEM (obstructive sle ep apnea) G47.33 ; Obesity, Class II, BMI 35-39.9 E66.9 ; Daytime somnolence R40.0 ; BMI 35.0-35.9,adult Z68.35 ; Gastroesophageal reflux disease, unspecified whether esophagitis present K21.9 ; Sleep disorder G47.9 and Hypertension, essential I10 [facility] [place] [address] [address] 10/31/2024 Felicity Misty [facility] [place] [address] [address] 11/27/2024 Felicity Misty [facility] [place] [address] [address] 11/27/2024 Felicity Misty [facility] [place] [address] [address] 12/25/2024 Felicity Misty [facility] [place] [address] [address] 01/12/2025 Felicity Misty [facility] [place] [address] [address] 01/16/2025 Felicity Misty Assessments Encounter Date Diagnosis (ICD Code) Assessment Notes Treatment Notes Treatment Clinical Notes Section Notes 03/08/2024 Toe pain, right (ICD-10 - M79.674) discussed that this could be multifactoral but not likely gout as it isn't localized to a synovial joint and is intermittent and associated with activity/positio janet. suspect related to some degree of neuropathy, either peripheral or radicular from his known LS spine disease. Encouraged appropriate socks and shoes, changes in positioning and monitoring for complications. Topical pain reliever recommended PRN. Consider prescription compounded product if OTC is not effective 03/08/2024 Toe pain, left (ICD-10 - M79.675) 04/11/2024 Chronic allergic rhinitis (ICD-10 - J30.9) 05/12/2024 Chronic allergic rhinitis (ICD-10 - J30.9) 07/20/2024 Bronchitis (ICD-10 - J40) Symptoms seem to be improving, start doxycycline only if symptoms progress over the next several days. Return precautions reviewed 07/20/2024 Loose stools (ICD-10 - R19.5) Recommend trial of fiber supplement every day and probiotic for the next 6 weeks. Consider testing if no improvement. 09/05/2024 CEM (obstructive sleep apnea) (ICD-10 - G47.33) 10/05/2024 Diastasis recti (ICD-10 - M62.08) CT imaging would be required to officially diagnose possible hernia but he is really asymptomatic at this point and has no significant visual defects. Recommend watchful waiting but strict return precautions and reasons for imaging were reviewed. 10/05/2024 Abdominal wall defect, acquired (ICD-10 - M95.8) 02/06/2025 Weight loss counseling, encounter for (ICD-10 - Z71.3) 02/06/2025 Obesity, Class II, BMI 35-39.9 (ICD-10 - E66.812) complicates all aspects of care, would certainly benefit from weight loss, good candidate for GLP1I. Will have to investigate insurance coverage 12/02/2024 Nasal congestion (ICD-10 - R09.81) 10/05/2024 Nasal congestion (ICD-10 - R09.81) Samples of nasal saline provided. Recommend use every night. Continue nasal sprays. Trial of Xyzal and continue follow-up with mechanical striper 02/06/2025 BMI 33.0-33.9,adult (ICD-10 - Z68.33) 09/05/2024 Obesity, Class II, BMI 35-39.9 (ICD-10 - E66.9) 09/05/2024 Daytime somnolence (ICD-10 - R40.0) 10/05/2024 Obesity, Class II, BMI 35-39.9 (ICD-10 - E66.812) complicates all aspects of care, would certainly benefit from weight loss, good candidate for GLP1I. Will have to investigate insurance coverage 02/06/2025 Chronic allergic rhinitis (ICD-10 - J30.9) 10/05/2024 BMI 35.0-35.9,adult (ICD-10 - Z68.35) 09/05/2024 BMI 35.0-35.9,adult (ICD-10 - Z68.35) 09/05/2024 Gastroesophageal reflux disease, unspecified whether esophagitis present (ICD-10 - K21.9) 10/05/2024 Weight loss counseling, encounter for (ICD-10 - Z71.3) 09/05/2024 Sleep disorder (ICD-10 - G47.9) 09/05/2024 Hypertension, essential (ICD-10 - I10) Plan Of Treatment Pending Test Test Name Order Date Sleep Study 09/05/2024 Physical Therapy 03/28/2019 C-CBC 08/29/2019 C-CMP 08/29/2019 C-LIPID PANEL 08/29/2019 C-HGBA1C 08/29/2019 Physical Therapy : Lymphedema 06/02/2022 Physical Therapy : Lymphedema 04/22/2023 M-Vitamin B12 11/17/2023 M-Vitamin D 25 Hydroxy 11/17/2023 M-COVID PCR SINGLE RAPID 08/28/2020 Insurance Providers Payer Name Payer Address Payer Phone Subscriber Number Group Number Insured Name Patient Relationship to Insured Coverage Start Date Coverage End Date [employer] MEDICARE [address] [address] [place] [address] [id number] Shemar Lester Self - patient is the insured Medications Administered Medication Instructions Date of Administration Dosage Notes Dexamethasone 4mg Injection 08/24/2023 4 mg Dexamethasone 4mg Injection 01/12/2024 4 mg Triamcinolone Acetonide 40mg Injection 10/12/2019 1 mL Medical (General) History Medical History History ICD Code HTN Sleep disorder Depressive d/o ED HLD BPH Degenerative arthritis Surgical History Surgery Date(Month/Year) R knee replacement 2016 Lt knee replacement 08/2020 colonoscopy 10/30/2021
--- OUTSIDE RECORDS SUMMARY | 2025-02-06 09:54 | XMS_ITS | Clinical Summary ---
Author Organization Healthcare Address [address] [place] [address] Care Team Providers Care Steamboat Inspector Name Role Phone Don Kim MD Primary Care Provider [phone] Family History Medical History Relation Name Comments Heart attack Father Relation Name Status Comments Father Social History Tobacco Use Types Packs/Day Years Used Date Smoking Tobacco: Never Assessed Sex and Gender Information Value Date Recorded Sex Assigned at Not on file Legal Sex Male 6:11 PM EDT Gender Identity Not on file Sexual Orientation Not on file Last Filed Vital Signs Vital Sign Reading Time Taken Comments Blood Pressure - - Pulse - - Temperature - - Respiratory Rate - - Oxygen Saturation - - Inhaled Oxygen Concentration - - Weight 103 kg (225 lb 15.9 oz) 05/29/2016 9:02 A M EDT Height 181.6 cm (5' 11.5 ) 05/29/2016 9:02 AM ED T Body Mass Index 31.08 05/29/2016 9:02 AM EDT Plan of Treatment Not on file Care Teams Steamboat Inspector Relationship Specialty Start Date End Date Don Kim MD [facility] [place] [address] PCP - General 01/10/21
--- OUTSIDE RECORDS SUMMARY | 2025-02-06 09:54 | XMS_ITS | Data Portability ---
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 [email or web address] Not available 09/03/2022 13:52:09 12/09/2023 12/09/2023 Closely monitor PSA trend. Medical management lower urinary symptoms with tamsulosin. Not available 12/10/2023 08:10:26 12/21/2024 12/21/2024 74-year-old male with history of benign prostatic hyperplasia presenting with urinary frequency, nocturia, and hesitancy. Persistent symptoms suggest inadequate response to tamsulosin. 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 PSA test follow-up required. Erectile Dysfunction And Orgasmia: Continue monitoring alongside antidepressant medication. Evaluate function and impact regularly. Psa Monitoring: Order PSA test. Complete at convenience. Primary care to fax results for ongoing surveillance. [email or web address] Not available 12/21/2024 13:59:23 Plan of Treatment Reminders Order Date Submit Date Provider Last Modified By Organization Details Last Modified Time Details Appointments None recorded. Lab urinalysis panel, auto 2024 025 [email or web address] 14 Counts Include 234 [facility] [place] Extended Services With [facility], [address] [place] [address] Dr [address], [place], [address], 5 13:49:47 surgical pathology study 2024 025 [facility], [address] [facility], [place], [address], 5 10:13:22 urinalysis panel, auto 2023 024 [email or web address] 14 Counts Include 234 [facility] [place] Extended Services With [facility], [address], [place], [address], 4 08:10:15 PSA, serum or plasma [address] (Laboratory), [address] [place], [address], 4 16:10:26 PSA, serum or plasma 2022 023 [facility] (Laboratory), [address] [place], [address], 3 14:49:13 Referral None recorded. Procedures None recorded. Surgeries None recorded. Imaging None recorded. Medication Orders finasteride 5 mg tablet 2024 025 [id number], [address] [place], [place], [id number], 5 13:49:54 silodosin 8 mg capsule 2024 025 CASEY [facility]87272, [address] [place], [place], [id number], 5 13:49:53 tamsulosin 0.4 mg capsule 2023 024 [email or web address] 14 [facility] #67441, [address] [place], [id number], 5 13:49:17 tamsulosin 0.4 mg capsule 2022 023 [email or web address] 14 [facility], [address] , [place], [id number], 13:49:17 Patient TargetsNo targets recorded. Patient Instructions Encounter Date Encounter Id Patient Instructions Last Modified By Organization Details Last Modified Time 09/03/2022 [id number] learning about healthy weight [email or web address] Not available 09/03/2022 13:50:51 11/17/2024 [id number] General Skin Protection: - SPF 30 or higher broad-spectrum sunscreen recommended with re-application every 2 hours - Sun protection measures: including wide-brimmed hat, sun-protective clothing, and avoidance of sun during peak hours of 10am-4pm - Avoid tanning beds as these can increase the chances of all 3 types of skin cancer -Please call us for appointment with any changing or worrisome lesions or skin conditions. [email or web address] Not available 11/17/2024 09:57:44 12/21/2024 [id number] learning about healthy weight [email or web address] Not available 12/21/2024 13:49:47 - Stop taking tamsulosin. - Start new medication as discussed for urinary symptoms. - Regular check-ups to see if symptoms are improving. - Get a PSA blood test done when you can and have the results sent to me. - Report any changes in your symptoms early. - Monitor your urinary symptoms and sexual function, and contact me if any new issues arise. [email or web address] Not available 12/21/2024 13:59:26 Reason for Referral None Reported. Results Created Date Observation Date Name Description Value Unit Range Abnormal Flag Note LastModifiedBy Organization Detail LastModifiedTime 12/09/1912/09/2023 urina lysis panel , auto Unknown Analyte Clean Catch Not Available [facility] Urology [place] Extended Services With [address], [place], [address], 12/09/2023 13:40:17 12/09/19 24 12/09/2023 urina lysis panel , auto Unknown Analyte Yellow Not Available [facility] [place] Extended Services With [address], [place], [address], 12/09/2023 13:40:17 12/09/19 24 12/09/2023 urina lysis panel , auto Unknown Analyte Clear Not Available [facility] Extended Services With [address], [place], [address], 12/09/2023 13:40:17 12/09/19 24 12/09/2023 urina lysis panel , auto Unknown Analyte 1.010 Not Available [facility] Extended Services With [address], [place], [address], 12/09/2023 13:40:17 12/09/19 24 12/09/2023 urina lysis panel , auto Unknown Analyte 1.003- 1.035 Not Available [facility] Extended Services With [address], [place], [address], 12/09/2023 13:40:17 12/09/19 24 12/09/2023 urina lysis panel , auto Unknown Analyte 7.0 Not Available [facility] Extended Services With [address], [place], [address], 12/09/2023 13:40:17 12/09/19 24 12/09/2023 urina lysis panel , auto Unknown Analyte 5.0-8. 0 Not Available [facility] Extended Services With [address], [place], [address], 12/09/2023 13:40:17 12/09/19 24 12/09/2023 urina lysis panel , auto Unknown Analyte Negati ve Not Available [facility] Extended Services With [address] [place], [address], 12/09/2023 13:40:17 12/09/19 24 12/09/2023 urina lysis panel , auto Unknown Analyte Negati ve Not Available [facility] Extended Services With [address] [place], [address], 12/09/2023 13:40:17 12/09/19 24 12/09/2023 urina lysis panel , auto Unknown Analyte Negati ve Not Available [facility] Extended Services With [address] [place], [address], 12/09/2023 13:40:17 12/09/19 24 12/09/2023 urina lysis panel , auto Unknown Analyte Negati ve Not Available [facility] Extended Services With [address] [place], [address], 12/09/2023 13:40:17 12/09/19 24 12/09/2023 urina lysis panel , auto Unknown Analyte Negati ve Not Available [facility] Extended Services With [address] [place], [address], 12/09/2023 13:40:17 12/09/19 24 12/09/2023 urina lysis panel , auto Unknown Analyte Negati ve Not Available [facility] Extended Services With [address] [place], [address], 12/09/2023 13:40:17 12/09/19 24 12/09/2023 urina lysis panel , auto Unknown Analyte Normal Not Available [facility] Extended Services With [address] [place], [address], 12/09/2023 13:40:17 12/09/19 24 12/09/2023 urina lysis panel , auto Unknown Analyte Normal Not Available [facility] Extended Services With [address] [place], [address], 12/09/2023 13:40:17 12/09/19 24 12/09/2023 urina lysis panel , auto Unknown Analyte Negati ve Not Available [facility] Extended Services With [address], [place], [address], 12/09/2023 13:40:17 12/09/19 24 12/09/2023 urina lysis panel , auto Unknown Analyte Negati ve Not Available [facility] Extended Services With [address] [place], [address], 12/09/2023 13:40:17 12/09/19 24 12/09/2023 urina lysis panel , auto Unknown Analyte Normal Not Available [facility] Extended Services With [address] [place], [address], 12/09/2023 13:40:17 12/09/19 24 12/09/2023 urina lysis panel , auto Unknown Analyte Normal 1 mg/dl Not Available [facility] Extended Services With [address], [place], [address], 12/09/2023 13:40:17 12/09/19 24 12/09/2023 urina lysis panel , auto Unknown Analyte Negati ve Not Available [facility] Extended Services With [address], [place], [address], 12/09/2023 13:40:17 12/09/19 24 12/09/2023 urina lysis panel , auto Unknown Analyte Negati ve Not Available [facility] Extended Services With [address] [place], [address], 12/09/2023 13:40:17 12/09/19 24 12/09/2023 urina lysis panel , auto Unknown Analyte Negati ve Not Available [facility]rology [place] Extended Services With [address], [place], [address], 12/09/2023 13:40:17 12/09/19 24 12/09/2023 urina lysis panel , auto Unknown Analyte Negati ve Not Available [facility]rology [place] Extended Services With [address], [place], [address], 12/09/2023 13:40:17 11/18/19 25 11/17/2024 SURGI ELIZABETH surgical SEE BELOW Becker topat holog y Repor t NAME: PIYUSH WADDELLSÁNCHEZ RYANNE PATH: [id number] PROCE DURE DATE: 11/17 SIGNO UT DATE: 11/21 Copy to: Diagn osis: 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 SOURC E OF SPECI MEN: SKIN, L SUP HELIX CLINI ELIZABETH INFOR MATIO N: R/O: BCC VS SCAR TISSU E. Gross Descr iptio n: The speci men consi sted of a singl e malik fragm ent which measu red 6 x 4 x 1 mm. All is submi tted in toto in one casse tte. Micro scopi c Descr iptio n: The epide rmis has an atten uated rete ridge marco rn. There is focal kerat inocy te atypi a and disor ganiz ation , consi stent with actin ic kerat osis. The dermi s has fibro sis with enlar ged colla gen bundl es and a brisk angio proli ferat ion. VIGNESH COREA MD Shanna d Out Date: 11/21 10:13 1 Not Available [facility] [address] [facility] [facility], [place], [address], 11/21/2024 10:13:22 12/22/19 25 12/21/2024 urina lysis panel , auto Unknown Analyte Clean Catch Not Available [facility] Extended Services With [address], [place], [address], 12/21/2024 13:12:32 12/22/19 25 12/21/2024 urina lysis panel , auto Unknown Analyte Yellow Not Available [facility] Extended Services With [address] [place], [address], 12/21/2024 13:12:32 12/22/19 25 12/21/2024 urina lysis panel , auto Unknown Analyte Clear Not Available [facility] Extended Services With [address] [place], [address], 12/21/2024 13:12:32 12/22/19 25 12/21/2024 urina lysis panel , auto Unknown Analyte 1.010 Not Available [facility] Extended Services With [address] [place], [address], 12/21/2024 13:12:32 12/22/19 25 12/21/2024 urina lysis panel , auto Unknown Analyte 1.003 - 1.030 Not Available [facility] Extended Services With [address] [place], [address], 12/21/2024 13:12:32 12/22/19 25 12/21/2024 urina lysis panel , auto Unknown Analyte 6.5 Not Available [facility] Extended Services With [address] [place], [address], 12/21/2024 13:12:32 12/22/19 25 12/21/2024 urina lysis panel , auto Unknown Analyte 5.0 - 8.0 Not Available [facility] Extended Services With [address] [place], [address], 12/21/2024 13:12:32 12/22/19 25 12/21/2024 urina lysis panel , auto Unknown Analyte Negati ve Not Available [facility] Extended Services With [address], [place], [address], 12/21/2024 13:12:32 12/22/19 25 12/21/2024 urina lysis panel , auto Unknown Analyte Negati ve Not Available [facility] Extended Services With [address], [place], [address], 12/21/2024 13:12:32 12/22/19 25 12/21/2024 urina lysis panel , auto Unknown Analyte Negati ve Not Available [facility] Extended Services With [address] [place], [address], 12/21/2024 13:12:32 12/22/19 25 12/21/2024 urina lysis panel , auto Unknown Analyte Negati ve Not Available [facility] Extended Services With [address], [place], [address], 12/21/2024 13:12:32 12/22/19 25 12/21/2024 urina lysis panel , auto Unknown Analyte Negati ve Not Available [facility] Extended Services With [address] [place], [address], 12/21/2024 13:12:32 12/22/19 25 12/21/2024 urina lysis panel , auto Unknown Analyte Negati ve Not Available [facility] Extended Services With [address] [place], [address], 12/21/2024 13:12:32 12/22/19 25 12/21/2024 urina lysis panel , auto Unknown Analyte Normal Not Available [facility] Extended Services With [address], [place], [address], 12/21/2024 13:12:32 12/22/19 25 12/21/2024 urina lysis panel , auto Unknown Analyte Normal Not Available [facility] Extended Services With [address] [place], [address], 12/21/2024 13:12:32 12/22/19 25 12/21/2024 urina lysis panel , auto Unknown Analyte Negati ve Not Available [facility] Extended Services With [address] [place], [address], 12/21/2024 13:12:32 12/22/19 25 12/21/2024 urina lysis panel , auto Unknown Analyte Negati ve Not Available [facility] Extended Services With [address] [place], [address], 12/21/2024 13:12:32 12/22/19 25 12/21/2024 urina lysis panel , auto Unknown Analyte Normal Not Available [facility] Extended Services With [address], [place], [address], 12/21/2024 13:12:32 12/22/19 25 12/21/2024 urina lysis panel , auto Unknown Analyte Normal Not Available [facility] Extended Services With [address] [place], [address], 12/21/2024 13:12:32 12/22/19 25 12/21/2024 urina lysis panel , auto Unknown Analyte Negati ve Not Available [facility] Extended Services With [address] [place], [address], 12/21/2024 13:12:32 12/22/19 25 12/21/2024 urina lysis panel , auto Unknown Analyte Negati ve Not Available [facility] [place] Extended Services With [address], [place], [address], 12/21/2024 13:12:32 12/22/19 25 12/21/2024 urina lysis panel , auto Unknown Analyte Negati ve Not Available [facility] Extended Services With [address] [place], [address], 12/21/2024 13:12:32 12/22/19 25 12/21/2024 urina lysis panel , auto Unknown Analyte Negati ve Not Available [facility] Extended Services With [address], [place], [address], 12/21/2024 13:12:32 Result Notes None recorded. Problems Name Problem SNOMED Code Status Onset Date Resolution Date Notes Provider Name and Address Organization Details Recorded Time Disorder of upper respirat ory system 372547046 Active 2015 From [employer];Pro vider: Don Kim;Sta tus: Active Not Available [facility] 6 05:42:01 Cough 50232478 Active 2015 From [employer];Pro vider: Don Kim;Sta tus: Active Not Available [facility] 6 05:42:01 Pain in right knee Active 2015 From [employer];Pro vider: Mary Mckee ;Status: Active Not Available [facility] 6 05:42:04 Derangem ent of medial meniscus 712840904 Active 2015 From [employer];Pro vider: Leonides Plata;S tatus: Active Not Available [facility] 6 05:42:04 Cramp in lower leg associat ed with rest 288393408 Active 2015 From [employer];Pro vider: Marybeth Montaño; Status: Active Not Available [facility] 6 05:42:04 Hyperten sive disorder 17364713 Active 2014 From [employer];Pro vider: Don Kim;Sta tus: Active Not Available [facility] 6 05:42:04 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 From [employer];Pro vider: Don Kim;Sta tus: Active Not Available [facility] 6 05:42:04 Testicul ar hypofunc tion 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 Active 2014 From [employer];Pro vider: Don Kim;Sta tus: Active Not Available [facility] 6 05:42:04 Senile hyperker atosis 856641466 Active 2015 From [employer];Pro vider: Conrado Krueger;S tatus: Active Not Available [facility] 6 05:42:04 Neck pain 34729280 Active 2015 From [employer];Pro vider: Don Kim;Sta tus: Active Not Available [facility] 6 05:42:[address] Concept Completed 201501/19/2019 From [employer];Pro vider: Marybeth Montaño; Status: Active TIANA ORTIZ APRN [address] [place] [address], [address] , [facility] 9 15:00:14 Mood disorder Completed 201501/19/2019 From [employer];Pro vider: Marybeth Montaño; Status: Active TIANA ORTIZ APRN [address] [place], [address] , [facility] 9 15:00:12 Insomnia 630123315 Active 2015 From [employer];Pro vider: Marybeth Montaño; Status: Active Not Available [facility] 6 05:42:04 Acute bronchit is 73761574 Active 2014 From [employer];Pro vider: Mary Mckee ;Status: Active Not Available [facility] 6 05:42:04 Hypertro phic conditio n of skin 39823992 Active 2015 From [employer];Pro vider: Conrado Krueger;Kira tatus: Active Not Available Counts include 234 beds at the [facility] 6 05:42:04 Acute sinusiti s 58192340 Completed 201401/19/2019 From [employer];Pro vider: Mary Mckee ;Status: Active TIANA ORTIZ, RESPIRATORY COORDINATOR [address] [place], [address] , [facility] 9 15:00:32 Pain 94247339 Active 2015 From [employer] Load;Pro vider: Conrado Krueger;Kira tatus: Active Not Available Counts include 234 beds at the [facility] 6 05:42:04 Notes:: Depression Screening* Date:07/17/2016 Problem Notes None recorded. Procedures Surgical History Date Name Laterality Status Provider Name and Address Organization Details Recorded Time 12/08/19 25 [facility] - [facility] AK [facility]07[facility]24 13:53:34 11/18/19 25 DAK - Cryo AK completed [facility] 11/17/2024 09:55:58 11/18/19 25 DAK - Biopsy, Tangential completed [facility] 11/17/2024 09:55:54 04/18/20 19 Excision Nail & Matrix completed THOR FARRELL DPM [address] [place], [address], [facility] 04/18/2019 10:45:11 01/25/20 19 Excision Nail & Matrix completed THOR FARRELL DPM [address] [place], [address], [facility] 01/24/2019 11:02:38 12/09/19 18 Airway Resistance completed Obdulia Mccord [facility] 12/08/2017 14:20:33 12/09/19 18 Diffusion Capacity completed Obdulia Mccord [facility] 12/08/2017 14:20:28 12/09/19 18 Lung Volumes, Plethysmography completed Obdulia Mccord [facility] 12/08/2017 14:20:24 12/09/19 18 Spirometry with Bronchodilator completed Obdulia Mccord [facility] 12/08/2017 14:20:38 11/16/19 18 EKG completed MARYBETH MONTAÑO APRN [address] [place], [address], [facility] 11/16/2017 17:23:56 04/30/20 17 Arthroscopic Surgery completed Sumayatejal Hawthorne [facility] 11/15/2017 08:43:11 08/30/18 68 Tonsillectomy completed Flory Arteagabert [facility] 02/03/2017 08:07:10 Imaging Results None recorded. Procedure Notes None recorded. Medical Equipment None Reported. Allergies Allergen ID Allergen Name Allergen Category Reaction Reaction Severity Criticality Documentation Date Start Date Code Code System Note Provider Name and Address Organization Details Recorded Time 128550 Lipitor medicatio n Not available Not available Not available 07/23/20162005 27642 5 RxNorm Comme nt: rajesh ricci es;Cr eated By: Angelita Fernando ;Crea deni Date: 2005 8:15: 24 AM; Not Available [facility] 6 12:52:52 246270 omeprazol e medicatio n Not available Not available Not available 07/23/20162008 7646 RxNorm Comme nt: didnt contr ol symto ms;Cr eated By: Aniket nazarioCre ated Date: 07/26 9:59: 00 AM; Not Available [facility] 6 12:52:52 454380 Relafen medicatio n Not available Not available Not available 07/24/20162005 79632 4 RxNorm Comme nt: stoma ch probl ems/t ingli ng;Cr eated By: Angelita rutherford Kassie ;Crea deni Date: 2005 8:15: 15 AM; Not Available [facility] 6 07:55:27 Medications Name Sig Start Date Stop Date Status Note LastModified by Organization Details LastModified Time cyclobenz aprine 10 mg tablet Take 1 tablet every day by oral route at bedtime for 10 days. 10/24 completed Not Available Not Available Not Available promethaz ine-DM 6.25 mg-15 mg/5 mL oral syrup Take 5 mL every 6 hours by oral route for 10 days. 12/07 completed Not Available Not Available Not Available diclofena c ER 100 mg tablet,ex tended release 24 hr Take 1 tablet every day by oral route. active dc Not Available Not Available No t Available meloxicam 15 mg tablet Take 1 tablet every day by oral route for 90 days. 10/24 completed Not Available Not Available Not Available Medrol (Zachariah) 4 mg tablets in a dose pack Take 1 dose pk by oral route. 10/24 completed Not Available Not Available Not Available sildenafi l 100 mg tablet Take 1 tablet every other day by oral route as needed. 2021 active dc Not Available Not Available Not Avai lable tamsulosi n 0.4 mg capsule TAKE 1 CAPSULE BY MOUTH EVERY DAY 12/21 completed Not Available Not Available Not Available trazodone 100 mg tablet take 1 tablet by mouth at bedtime 2018 active Not Available Not Available Not Avai lable lisinopri l 10 mg tablet TAKE 1 TABLET BY MOUTH AT BEDTIME active Not Available Not Available No t Available sertralin e 25 mg tablet TAKE 1 TABLET BY MOUTH ONCE DAILY. active Not Available Not Available No t Available hydrochlo rothiazid e 25 mg tablet take 1 tablet by mouth once daily 2018 active Not Available Not Available Not Avai lable diclofena c sodium 50 mg tablet,de layed release one tablet Two times a day prn 12/08 completed Frequenc y: bid;Alt Frequenc y: prn pain;Med ication Descript ion: diclofen ac; Dosage:1 ; Route:or al; refills: 0; Quantity :60 delayed release tablet Not Available Not Available Not Available azelastin e 137 mcg (0.1 %) nasal spray [place] 2 sprays twice a day by intranas al route. 09/14 completed Not Available Not Available Not Available fluticaso ne propionat e 50 mcg/actua tion nasal spray,tanisha pension [place] 1 spray every day by intranas al route. 12/07 completed Not Available Not Available Not Available finasteri de 5 mg tablet Take 1 tablet every day by oral route for 90 days. 2024 active Not Available Not Available Not Avai lable Bactrim DS 800 mg-160 mg tablet Take 1 tablet every 12 hours by oral route for 7 days. 02/14 completed Not Available Not Available Not Available rosuvasta tin 20 mg tablet TAKE 1 TABLET BY MOUTH AT BEDTIME active Not Available Not Available No t Available alfuzosin ER 10 mg tablet,ex tended release 24 hr Take 1 tablet every day by oral route for 90 days. 12/21 completed dc Not Available Not Available Not Available magnesium daily 10/24 completed Not Available Not Available Not Available naproxen 2 po qd 10/24 completed Not Available Not Available Not Available furosemid e active dc Not Available Not Available Not Available amlodipin e active Not Available Not Available Not Available monteluka st active Not Available Not Available Not Available Celebrex active Not Available Not Avai lable Not Available ProAir HFA 90 mcg/actua tion aerosol inhaler Every four to six hours 12/08 completed Frequenc y: q4-q6h;A lt Frequenc y: prn;Medi cation Descript ion: albutero l; Dosage:1 -2 puffs; Route:in halation ; refills: 1; Quantity :1 aerosol Not Available Not Available Not Available levocetir izine active Not Available Not Available Not Available nebivolol active Not Available Not Jinny ilable Not Available silodosin 8 mg capsule Take 1 capsule every day by oral route for 90 days. 2024 active Not Available Not Available Not Avai lable D3-2000 active Not Available Not Avail able Not Available Fish Oil 300 mg-1,000 mg capsule,d elayed release Daily 2011 active Frequenc y: daily;Me dication Descript ion: omega-3 polyunsa turated fatty acids; Dosage:2 ; Route:or al; refills: 0; Quantity :otc capsule Not Available Not Available Not Available Dymista 137 mcg-50 mcg/spray nasal spray [place] 1 spray twice a day by intranas al route. 12/20 completed off formular y Not Available Not Available Not Available vit C 1,000 mg-rutin 50 mg-hesper 50 mg-biofla v ER tablet,ex t.release Take by oral route. active Not Available Not Available No t Available Zepbound active Not Available Not Avai lable Not Available Vitals Date Recorded Body height Body mass index (BMI) Body weight Provider Name and Address Organization Details Last Updated DateTime 09/03/2022 185.42 cm 32.7 kg/m2 480496.91 g [facility]22 13:06:01 Date Recorded Body height Provider Name an d Address Organization Details Last Updated DateTime 11/17/2024 185.42 cm Tammi Domínguez [facility] 11/17/2024 09:24:33 Date Recorded Body height Body mass index (BMI) Body weight Provider Name and Address Organization Details Last Updated DateTime 12/09/2023 185.42 cm 32.7 kg/m2 431890.91 [facility] 12/09/2023 13:39:02 Date Recorded Body height Body mass index (BMI) Body weight Provider Name and Address Organization Details Last Updated DateTime 12/21/2024 185.42 cm 33.6 kg/m2 044308.05 fannie Merida [facility] 12/21/2024 13:05:24 Social History Question Answer Notes LastModified by Organizat ion Details LastModified Time Tobacco Smoking Status Former Smoker smokes 1 cigar about once/[email or web address]/08[facility]2017 14:16:47 How Much Tobacco Do You Chew? None Information not available 09/14/2018 What Was The Date Of Your Most Recent Tobacco Screening? 12/07/2024 [email or web address] Information not available 12/07/2024 Are You Passively Exposed To Smoke? Yes Information not available 09/14/2018 How Much Tobacco Do You Smoke? No Information not available 09/14/2018 Has Tobacco Cessation Counseling Been Provided? Yes Information not available 09/14/2018 On What Date Was Tobacco Cessation Counseling Provided? 11/20/2021 [email or web address] Information not available 11/20/2021 How Many Years Have You Smoked Tobacco? 40 [email or web address] Information not available 12/07/2018 Sex: Male Functional Status Question Answer Note LastModified by Organization D etails LastModified Time What is your level of alcohol consumption? Moderate [email or web address] Information not available 12/07/2018 Mental Status None recorded. Family History Relationship Description Onset Age of this Age Resolved Age Notes LastModified by Organization Details LastModified Time Unspecified Relation Heart disease [email or web address] Not available 2016 08:06:34 Unspecified Relation History of hypertension [email or web address] Not available 02/2017 08:06:48 Father Malignant neoplasm of prostate [email or web address] Not available 2021 08:31:16 Medical History Condition Response Coronary Artery Disease N Gout N Other N Kidney Cyst N Kidney Stones N Enlarged Prostate Y Heart Arrhythmia N Head Trauma/Injury N Erectile Dysfunction Y Emphysema N Sexually Transmitted Disease N Depression Y COPD N Pneumonia N Incontinence N Prostate Problems Y Cancer Prostate N Paralysis N Sinusitis Y Anxiety Disorder N Hemorrhoids N Obesity Y Arthritis Y Infertility N Acid Reflux (GERD) N Hematuria N Cancer N Stroke N Neck Injury N Previous Radiation Therapy? N Neurologic Disorder N Rheumatoid Arthritis N Kidney Disease N Heart Conditions N Kidney or Bladder Problems N Urinary Problems Y Constipation N Brain Injury N Ulcers N Other Skin Condition Prostate Hypertrophy N Bleeding Disorder N Low Testosterone N Tuberculosis N Previous Chemotherapy? N AIDS/HIV N BPH Y Urinary Tract Infection N Asthma N Cardiac Disease N Thyroid Disorder N Hepatitis N PCOS N Colon Cancer N Hernia N Colon/Rectal Disorders N Ostomy N Glaucoma N Pacemaker N Anesthesia Complications N Genitourinary Disease N Chronic Kidney Disease N Radiation Therapy N Bladder or Kidney Problems N Back Injury N High Cholesterol Y High PSA N Liver Disease N Nervous System Disorder N Organ Transplant N Dialysis N Allergies/Hayfever Y False Teeth N Chronic Obstructive Pulmonary Disease N Parkinson's Disease N Chemotherapy N Anemia N Transplant N Back Pain Y Chest Pain N Multiple Sclerosis N Proteinuria N Heart Attack ([place]) N Mental Illness N Diabetes N Ovarian Cancer N Seizures/Epilepsy N Genitourinary problem(s) N Congestive Heart Failure (CHF) N Kidney Failure N Sleep Apnea Y Bronchitis Y Heart Disease N Hypertension Y Immunizations Vaccine Type Date Status Note Provider Nam e and Address Organization Details Recorded Time Pneumococcal conjugate PCV 13 6 completed MARYBETH MONTAÑO APRN [address] [place] [address], [phone], [facility] 05/09/2017 20:02:19 Past Encounters Encounter ID Performer Location Encounter Start Date Encounter Closed Date Diagnosis/Indication Diagnosis SNOMED-CT Code Diagnosis ICD10 Code Diagnosis Note [id number] BETH BRIAN MD SURGERY SCHEDULE [address] [place] [address] 09/22/2016 08:51:13 09/22/2016 08:55:35 [id number] MARYBETH MONTAÑO APRN INTERNAL [facility] [address] [address] 01/14/2017 09:18:58 01/14/2017 10:04:34 Hypertensive disorder 65510059 I10 Impotence of organic origin 446458255 N52.9 Familial c ombined hyperlipidemia 797958099 E78.4 Senile hyperkeratosis 39 9226250 L82.1 cetaphil for eczematous conditions . use daily. 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 Will require monitoring of oxygen saturation . He is stable for surgery. His ECG is stable with NSR. I have discussed which medication s to hold before surgery. Familial c ombined hyperlipidemia 240253532 E78.4 Pain in right knee 36631 25312 83858 M25.561 Hypertensive disorder 38 257817 I10 Body mass index 30+ - obesity 208314024 Z68.39 Z68.31 [id number] MARYBETH MONTAÑO APRN [facility] [address] [address] 11/15/2017 08:23:18 11/15/2017 09:13:56 Body mass index 30+ - obesity 241419375 Z68.39 Z68.31 Dyspnea 627240748 R06.00 hx of smoking. I do not think this is cardiac in nature, ECG was wnl. Could be untreated sleep apnea. Sleep apnea 71714477 G47 .30 explained he may need evaluation again, could have worsened. [id number] ALAINA STOKES MD PULMONARY [address] [facility], [address] [place] [address] 1 12/08/2017 13:38:46 12/14/2017 13:33:30 Dyspnea on exertion 22491667 R06.09 With a non specific vent impairment on PFTs with a low ERV and perfect DLCO, I think his symptoms are due to being overweight and deconditio radha due to knee pain. I discussed further diagnostic work up with CBC, HRCT, Echo, but I felt these to be of low yield in his case and he will work on weight loss instead. Allergic rhinitis 303695 04 J30.9 [id number] ALAINA STOKES MD PULMONARY [address] [facility], [address] [place] [address] 03/24/2018 13:57:18 03/28/2018 07:06:37 Dyspnea on exertion 45140485 R06.09 With a non specific vent impairment on PFTs with a low ERV and perfect DLCO, I think his symptoms are due to being overweight and deconditio radha due to knee pain. I discussed further diagnostic work up with CBC, HRCT, Echo, but I felt these to be of low yield in his case and he will work on weight loss instead. He can follow up as needed if symptoms worsen and he wants further work up. 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 He has classic symptomati c hands with tenderness at the first carpometac arpal joints, glenohumer al joints, bilateral hip joint. He is post right partial knee replacemen t without any complicati ons. The left knee has moderate to advanced osteoarthr itis. No features of rheumatoid or inflammato ry arthritis noted. Today he is educated about osteoarthr itis and symmetric course. I reassured him about the absence of rheumatoid arthritis. I suggested him to continue with lifestyle modificati ons including weight loss. 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 I want him to take meloxicam 15 mg once a day and discontinu e over-the-c ounter nonsteroid al anti-infla mmatory drugs. He also obtained x-rays of bilateral hands. I plan to see him in 6 months. Chronic low back pain 27 0857506 M54.5 in terms of lower back pain, seems to be mechanical in nature. He does not have any clinical evidence of radiculopa thy or myelopathy . The pain tends to get worse with physical activity. Once again we discussed the importance of weight loss and core strengthen ing exercises. I have obtained the x-rays of lumbosacra l spine. I would consider physical therapy evaluation after review of the x-rays. He is comfortabl e with the discussion . [id number] TIANA ORTIZ APRN INTER[facility] MEDICINE [address] [place] [address] 01/19/2019 14:32:00 01/25/2019 16:09:33 Left ingrown toenail with infection 9482589827 5221915 L60.0 Bactrim DS for 7 days, contact me if we need to extend the course, I will submit a referral to a Mail Distribution Scheme Examiner in [place] he would like to go to. [id number] [facility] [address] ,[address] [place] [address] 01/24/2019 09:15:23 01/24/2019 11:34:01 Ingrowing nail 235013619 L60.0 Paronychia of toe 125195 002 L03.039 Pain in left foot 650353 5438 58325 M79.762 [id number] TIANA ORTIZ APRN [facility] [address] [place] [address] 02/14/2019 09:22:56 02/17/2019 09:24:39 Right side sciatica 5697951003 57897 M54.31 Baseline x-ray completed with lance on in the spine. Likely has a denture aggravated disc causing his sciatica. He also has very tight piriformis and hamstring muscles. Advised Heat, Formal PT 6 weeks, return for f/u at that time. 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 81 477304 F52.32 [id number] LILY ALVARADO MD [facility] [address] [address] 11/20/2021 13:43:17 11/26/2021 17:46:06 Benign prostatic hyperplasia with outflow obstruction 286044457 N40.1 Primary er ectile dysfunction 195754220 N52.9 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 81 599341 F52.32 [id number] LILY ALVARADO MD [facility] [address] [address] 01/01/2022 14:00:28 01/10/2022 15:36:03 Benign prostatic hyperplasia with outflow obstruction 719147176 N40.1 Acquired g eneralized anorgasmia 401468473 F52.32 [id number] LILY ALVARADO MD [facility] [address] [address] 03/05/2022 14:46:36 03/16/2022 10:10:30 Benign prostatic hyperplasia with outflow obstruction 509036252 N40.1 Primary er ectile dysfunction 431297252 N52.9 [id number] LILY ALVARADO MD [facility] [address] [address] 09/03/2022 12:55:02 09/09/2022 11:13:12 Benign prostatic hyperplasia with outflow obstruction 643076647 N40.1 Nocturia 109020022 R35.1 [id number] LILY ALVARADO MD [facility] [address] [address] 12/09/2023 13:21:39 12/11/2023 04:43:16 Benign prostatic hyperplasia with outflow obstruction 750355390 N40.1 Nocturia 825975454 R35.1 [id number] HE VEE MD [address] [address] 11/17/2024 09:07:46 11/17/2024 10:23:31 Multiple benign melanocytic nevi 633242585 D22.5 L81.4 L82.1 D18.01 Benign appearing lesions.Re assurance given.Sun protection discussed. Look for physical ga sunscreens with at least SPF 30 containing zinc oxide or titanium dioxide as active ingredient . This helps avoid risks inherent to chemical sunscreens including photoaller gic, phototoxic , allergic contact and irritant contact dermatitis .Recommend monthly self examinatio ns and yearly full skin examinatio n with a dermatolog y provider.P atient instructed to call with any concerns or changing lesions. Neoplasm o f uncertain behavior of skin 73443954 D48.5 Location: L superior helix r/o BCC vs scar tissue - Bx performed today (see proc note(s) & surgical path order below for further detail, including location(s ) & DDX(s))- Wound care instructio ns reviewed/h andout provided- Will call with results & arrange tx as indicated at that time History of malignant neoplasm of skin 360960595 Z85.828 History of non melanoma skin cancer.No evidence of recurrence Actinic keratosis 007 L57.0 -Precancer ous nature discussed -Will TX with LN2 today (see proc note) -FUP if sites persist after [place] [id number] HE VEE MD [address] [address] 12/07/2024 13:42:20 12/07/2024 14:35:04 Actinic keratosis L57.0 The nature of the diagnosis was explained. Pre-cancer ous.Biopsy proven [place]. PATH: [id number] 0Will treat with LN2.F/u if treated lesions persist. [id number] LILY ALVARADO MD [facility] [address] [facility],[place] [address] 12/21/2024 12:51:24 12/22/2024 10:21:57 Benign prostatic hyperplasia with outflow obstruction 623184852 N40.1 N13.8 Discontinu e tamsulosin . Begin alternativ e pharmacoth erapy for symptom control. Regular follow-up to evaluate symptom improvemen t. Nocturia 014852192 R35.1 Discontinu e tamsulosin due to inadequate control. Introduce alternativ e medication . Monitor improvemen t in nocturic symptoms. Health Concerns Section Related Observation LastModified by Organization Detai ls LastModified Time None Recorded Concern Status LastModified by Organization Details LastModified Time None Recorded Advance Directives Directive None Recorded Payers Insurance Date Sequence Insurance Name Policy Number Policy Sinha Covered Member ID Sinha Member ID Guarantor Name 11/17/2024 [employer] (MEDICARE REPLACEMENT/ ADVANTAGE - PPO) Joe Lester [id number] Joe Lester 11/17/2024 1 [employer] (PPO) Joe Lester [id number] Joe Lester 01/01/2025 1 [employer] (MEDICARE REPLACEMENT/ ADVANTAGE - PPO) Joe Lester [id number] Joe Lester 11/17/2024 [employer] (MEDICARE REPLACEMENT/ ADVANTAGE - PPO) Joe Lester [id number] Joe Nathan Tayler Notes Date Note Type Note Provider Name and Address Organization Details Recorded Time 09/03/2022 text/html 72-year-old male in the office for follow-up evaluation of benign prostatic hyperplasia with lower urinary symptoms, erectile dysfunction, and sexual dysfunction related to anorgasmia related to antidepressant medication. He takes tamsulosin with improvement of lower urinary symptoms. He has occasional urinary intermittency. Force of stream is adequate. Daytime frequency has improved with discontinuation of Lasix. Nocturia 0 to once nightly. LILY ALVARADO MD [address] [place] [address], [phone], [facility] 09/03/2022 13:52:30 12/09/2023 text/html 73-year-old male in the office for follow-up evaluation of benign prostatic hyperplasia with lower urinary symptoms, erectile dysfunction, and sexual dysfunction related to anorgasmia related to antidepressant medication. He takes tamsulosin with improvement of lower urinary symptoms. No hesitancy. No urgency. Daytime frequency normal. Nocturia 0-1 times. No gross hematuria. No dysuria. He reports PSA with PCP at [facility]. LILY ALVARADO MD [address] [place] [address], [phone], [facility] 12/10/2023 08:11:10 11/17/2024 text/html Pt is here for a full body skin exam today.History of NMSC of L ear ( doesn't know when or where it was done)New ptSpots of concern today: top of left ear HE VEE MD [address] [place] [address], [phone], [facility] 11/19/2024 12:27:17 12/07/2024 text/html Left superior he lix- Bx proven ACTINIC KERATOSISPATH: [id number]: here for LN2. HE VEE MD [address] [place] [address], [phone], [facility] 12/07/2024 16:53:09 12/21/2024 text/html The patient is a 74-year-old male presenting with benign prostatic hyperplasia. Reports urinary frequency, nocturia, hesitancy, and incomplete bladder emptying. Urination occurs every two hours and once at night. Occasional burning in urination. Taking two capsules of tamsulosin daily without relief. Erectile dysfunction and orgasmia linked to antidepressants. He recalls past episodes of possible overactive bladder. No recent surgeries. PSA testing recommended; status unknown. LILY ALVARADO MD [address] [place] [address], [phone], [facility] 12/31/2024 18:59:17
--- OUTSIDE RECORDS SUMMARY | 2025-02-06 09:54 | XMS_ITS | Patient Health Record ---
Author Organization [facility] Address [address] [place] [address] Care Team Providers Care Automotive Technician Name Role Phone Self Referral, Self Primary Care Provider Neisha Roy Unavailable Migration, Provider Unavailable Unavailable Allergies Allergen (clinical drug ingredient) Drug/Non Drug Allergy documented on EMR Reaction Allergy Type Onset Date Status OYSTERS (uncoded) stomach upset Allergy Active Reason For Referral No Information Medications Medication SIG (Take, Route, Frequency, Duration) [...] 40 MG for 90 Days N ot-Taking Rosuvastatin Calcium *Please rev iew and pick correct strength-formula tion from Metavana options. If intended option is not shown, discontinue and re-order from Quick Search* Active traZODone HCl 100 MG 1 tab(s) orally 2 times a day Active Furosemide 40 MG for 30 Days A ctive Sertraline HCl 25 MG for 30 Days Active amLODIPine Besylate *Please revi ew and pick correct strength-formula tion from Metavana options. If intended option is not shown, discontinue and re-order from Quick Search* Active Social History Tobacco Use: Social History Observation Description Date Details (start date - stop date) Never Smoker NA - NA Substance use:- Question Answer Notes Smoking status: nonsmoker Did you have a drink contain ing alcohol in the past year? Yes How often did you have six o r more drinks on one occasion in the past year? Never (0 points) How many drinks did you have on a typical day when you were drinking in the past year? 3 or 4 (1 point) How often did you have a dri nk containing alcohol in the past year? Four or more times a week (4 points) Have you used drugs other th an those for medical reasons in the past 12 months? No Problems Problem Type SNOMED Code ICD Code Onset Dates Problem Status W/U Status Risk Notes Problem Cervical spondylosis without myelopathy (705593619) Spondylosis without myelopathy or radiculopathy, cervical region (M47.812) Active confirmed Problem Cervical disc disorder, unspecified, unspecified cervical region (M50.90) Active confirmed Patient follow-up addressed current progress with plan of care. Patient noted headaches have resolved and generalized pain is improved, but range of motion deficits are still persistent. Patient was noted to have limited mobility with range of motion assessment of the cervical spine at the OA and lower cervical joints as well the thoracic spine. Updated physical therapy prescription was given and the patient was given home exercises to address areas of deficit in the clinic exam. Follow-up in 6-8 weeks to determine next steps. Problem Muscle pain (14947230) Myalgia, other site (M79.18) Active confirmed Problem Cervical spondylosis without myelopathy (769049531) Spondylosis without myelopathy or radiculopathy, cervical region (M47.812) Active confirmed Encounters Encounter Location Date Provider Diagnosis [facility] [address] [place] [address] 08/05/2024 Provider Migration Plan Of Treatment Future Test Test Name Order Date CmbL23: LEFT C3-5 Cervical M edial Branch Block CMBB - 2 level (04769-2 G000) 03/04/2022 CmbR23: RIGHT C3-5 Cervical Medial Branch Block CMBB - 2 level (20383-6 G000) 03/04/2022 CmbL35: LEFT C5-T1 Cervical Medial Branch Block CMBB - 3 level (33649-3 G000) 04/15/2022 CmbR35: RIGHT C5-T1 Cervical Medial Branch Block CMBB - 3 level (98346-6 G000) 04/15/2022 PT - Movement Analysis; Eval uation and Treatment (37961, 41938, 30843, 91827, 46567, 09371) 05/12/2022 Insurance Providers Payer Name Payer Address Payer Phone Subscriber Number Group Number Insured Name Patient Relationship to Insured Coverage Start Date Coverage End Date [employer] [address] [address] [place] [address] [id number] Virgilio Lester Self - patient is the insured 2 Medical (General) History Medical History History ICD Code Arthritis Hypertension Surgical History Surgery Date(Month/Year) Knee surgery- partial replacement right 2017 Knee surgery-total left 2020 Hospitalization History Reason Date(Month/Year) none
[2025-02-06 11:07] LABS: Prostate Specific Ag Screen 0.5 ng/ml (0.0-4.0)
== END 2025-02-06 23:59 | disposition home or self-care (01) ==
LOC: LAB 09:49
PROVIDERS: PCP Nurse Practitioner Family; Visit Provider Urology
DX: N40.1 Benign prostatic hyperplasia with lower urinary tract symptoms (principal)
CPT/HCPCS: 36415; G0103

== ENCOUNTER 2025-06-15 09:27 | Outpatient (CLI) | payer MEDICARE, SELFPAY ==
--- OUTSIDE RECORDS SUMMARY | 2024-08-05 17:00 | XMS_ITS ---
Author Organization [facility] Address [address] [place] [address] Care Team Providers Care Safety Risk Lead Name Role Phone Self Referral, Self Primary Care Provider Neisha Roy Unavailable Migration, Provider Unavailable Unavailable Allergies Allergen (clinical drug ingredient) Drug/Non Drug Allergy documented on EMR Reaction Allergy Type Onset Date Status Shellfish (FN) OYSTERS (uncoded) stomach upset Allergy Active [facility] Encounter Medications Medication SIG (Take, [...] iew and pick correct strength-formula tion from [employer] options. If intended option is not shown, discontinue and re-order from Quick Search* Active traZODone HCl 100 MG Tablet 1 tab(s) orally 2 times a day Active Furosemide 40 MG Tablet ; Duration: 30 Days Active amLODIPine Besylate *Please revi ew and pick correct strength-formula tion from [employer] options. If intended option is not shown, discontinue and re-order from Quick Search* Active Encounters Encounter [facility] Date [facility] [address] [place] [address] 08/05/2024 Provider Migration Plan Of Treatment No Information Progress Notes * Virgilio KAURDOB:1950 (75 yo M)Acc No.[id number]:08/05/2024 Patient: Virgilio Simmons Provider: Kristy escalante Migration :1950 A ge:74 Y S ex:Male Date:08/05/2024 Address:[facility] [address] [facility], [id number] Pcp:Self Self Referral Subjective: * Chief Complaints: [...] Electronic signature of Prov ider Migration on 06/15/2025 at 09:38 AM EDT Sign off status: Pending * Provider: Kristy escalante Migration Date: 10/06/2023 Generated for Mila rodriguez/Davin/Kathryn on: 1 09:38 AM EDT
--- OUTSIDE RECORDS SUMMARY | 2024-12-02 17:30 | XMS_ITS ---
Author Organization [facility] Address [address] [place] [address] Care Team Providers Care Pipeline Controller Name Role Phone Felicity Jay Primary Care Provider FELICITY JAY Unavailable Unavaila ble Migration, Provider Unavailable Unavailable Allergies Allergen (clinical drug ingredient) Drug/Non Drug Allergy documented on EMR Reaction Allergy Type Onset Date Status OYSTERS (uncoded) terrible stoma ch pains Allergy [facility] Encounter Medications Medication SIG (Take, [...] review and pick correct strength-formula tion from [employer] options. If intended option is not shown, discontinue and re-order from Quick Search* Active Fish Oil 1000 MG 1 cap(s) orally daily Active Vitamin D3 1000 UNIT as directed orally once a day; Duration: 30 day(s) Active Encounters Encounter Location Date Provider Diagnosis [facility] [address] [facility] [address] [place] [address] 12/02/2024 Provider Migration Nasal congestion R09.81 Assessments [...] y once a day; Duration: 90 days Progress Notes * Joe KAUR RDOB:[birth year] (75 yo M)Acc No.[id number]:12/02/2024 Patient: Joe HALL Provider: Kristy Shafer :1950 A ge:74 Y S ex:Male Date:12/02/2024 Address:[facility] [address] [facility], [id number] Pcp:Felicity Jay Subjective: * Chief Complaints: * [...] Electronic signature of Sunny morris Migration on 06/15/2025 at 09:37 AM EDT Sign off status: Pending * Provider: Kristy escalante Migration Date: 0 12/02/2024 Generated for Mila rodriguez/Davin/Kathryn on: 1 09:37 AM EDT
--- OUTSIDE RECORDS SUMMARY | 2025-06-11 06:30 | XMS_ITS ---
Author Organization [facility] Address [address] [place] [address] Care Team Providers Care Returned Goods Sorter Name Role Phone Torri Ruiz Primary Care Provider [phone] TORRI RUIZ Unavailable Unavaila ble Allergies Allergen (clinical drug ingredient) Drug/Non Drug Allergy documented on EMR Reaction Allergy Type Onset Date Status OYSTERS (uncoded) terrible stoma ch pains Allergy Active Results Component Value Reference Range Notes LIPID PANEL, STANDARD (7600) Reviewed date:06/13/2025 01:02:07 PM Interpretation: Performing Lab:[facility], [facility] [id number] [facility], [facility] HospitalJrhkHT[address] Ajit Delgado Notes/Report: NON-FASTING; NON-FASTING; NON-FASTING; NON-FASTING; [...] LDL-C. Sanjay SEWELL et al. SONDRA. 2013;310(19): 3035-0081 (http://education.[employer].PS DEPT./faq/FAQ 164) CHOL/HDLC RATIO 3.3 <5.0 (calc) NON HDL CHOLESTEROL 67 <130 mg/dL (calc) For patients with diabetes plus 1 major ASCVD risk factor, treating to a non-HDL-C goal of <100 mg/dL (LDL-C of <70 mg/dL) is considered a therapeutic option. COMPREHENSIVE METABOLIC PANE (76940) Reviewed date:06/13/2025 01:02:08 PM Interpretation: Performing Lab:[facility], [facility] [address], MedSocketJoukHX[address] Ajit Delgado Notes/Report: NON-FASTING; NON-FASTING; NON-FASTING; NON-FASTING; [...] Reviewed date:06/13/2025 01:02:08 PM Interpretation: Performing Lab:[facility], [facility] [address], MedSocketBantOF[address] Ajit Delgado Notes/Report: NON-FASTING; NON-FASTING; NON-FASTING; NON-FASTING; [...] MPV 9.8 7.5-12.5 fL ABSOLUTE NEUTROPHILS 3615 2740-7108 cells/uL ABSOLUTE LYMPHOCYTES 599 414-9294 cells/uL ABSOLUTE MONOCYTES 500 200-950 cells/uL ABSOLUTE EOSINOPHILS 20 15-500 cells/uL ABSOLUTE BASOPHILS 40 0-200 cells/uL NEUTROPHILS 72.3 LYMPHOCYTES 16.5 MONOCYTES 10.0 EOSINOPHILS 0.4 BASOPHILS 0.8 LYME DISEASE ANTIBODIES (IGG ,IGM), IMMUNOBLOT (8593) Reviewed date:06/13/2025 01:02:08 PM Interpretation: Performing Lab:[facility], [facility] [address] [facility], [facility] HospitalZqwfEM[address] Ajit Delgado Notes/Report: NON-FASTING; NON-FASTING; NON-FASTING; NON-FASTING; NON-FAST FASTING:YES FASTING: YES HEMOGLOBIN A1c (496) Reviewed date:06/13/2025 01:02:08 PM Interpretation: Performing Lab:[facility], [employer] [address], MedSocketGqpqNP[address] Ajit Delgado Notes/Report: NON-FASTING; NON-FASTING; NON-FASTING; NON-FASTING; [...] diagnosis of diabetes in children. According to [place] Diabetes Association (ADA) guidelines, hemoglobin A1c <7.0% represents optimal control in non- diabetic patients. Different metrics may apply to specific patient populations. Standards of Medical Care in Diabetes(ADA). PSA, TOTAL (5363) Reviewed date:06/13/2025 01:02:09 PM Interpretation: Performing Lab:[facility] [id number] [employer], [facility] CenterHfenHF[address] Ajit Delgado Notes/Report: NON-FASTING; NON-FASTING; NON-FASTING; NON-FASTING; [...] AUTHORIZATION Reviewed date:06/12/2025 07:06:01 PM Interpretation: Performing Lab:[facility] [address] [facility], [facility] HospitalIomsKJ[address] Ajit Delgado Notes/Report: NON-FASTING; NON-FASTING; NON-FASTING; NON-FASTING; NON-FAST FASTING:YES FASTING: YES TEST NAME: LYME DISEASE ANTIBODIES TEST CODE: 8593SB CLIENT CONTACT: CRISTIANO DUMONT REPORT ALWAYS MESSAGE SIGNATURE The laboratory testing on this patient was verbally requested or confirmed by the ordering physician or his or her authorized bilingual call center representative after contact with an employee of [employer]. Federal regulations require that we maintain on file written authorization for all laboratory testing. Accordingly we are asking that the ordering physician or his or her authorized bilingual call center representative sign a copy of this report and promptly return it to the client relations associate. Signature: COMMENT Please fax this signed form to [phone]. Please do not attempt to return this document by other methods. Documents will not be viewed by a bilingual call center representative. Please do not use this fax number for other service requests. Rapid Covid/Flu A-B Combo Reviewed date:06/11/2025 01:57:13 PM Interpretation: Performing Lab: Notes/Report: Rapid Covid neg Flu A neg Flu B neg Reason For Referral Reason [facility] Ortho for right knee and left shoulder pain, okay to order xrays prior if needed Diagnosis 1 Pain, joint, knee, r ight (M25.561) Referral Organization [facility] Referring Provider First Name Torri Referring Provider Last Name Misty Referring Provider Speciality [facility] Bolivar deras Referred Organization [facility] Referred Address [address] [place] [id number], Referred Provider Specialty Orthopedic S urgery General [...] Question Answer Notes Are you a: nonsmoker Vital Signs Temperature 97.3 degrees Fahrenheit 06/11/20 25 Heart Rate 100 /min 06/11/2025 Blood pressure systolic 108 mm Hg 06/11/20 25 Blood pressure diastolic 72 mm Hg 025 Height 6 ft in 06/11/2025 Weight 224.2 lbs 06/11/2025 BMI 30.4 kg/m2 06/11/2025 Encounters Encounter Location Date Provider Diagnosis [facility] GINO [address] [facility] [address] [place] [address] 06/11/2025 Torri Ruiz Body aches R52 ; [facility] annual wellness visit, subsequent Z00.00 ; [...] M54.40 ; Pain, joint, knee, right M25.561 and Pain, joint, shoulder, left M25.512 Assessments Encounter Date Diagnosis (ICD Code) Assessment Notes Treatment Notes Treatment Clinical Notes Section Notes 06/11/2025 Body aches (ICD-10 - R52) 06/11/2025 Medicare annual wellness visit, subsequent (ICD-10 - Z00.00) screening exams and vaccinations UTD for age/season, no concerns about falls or cognitive changes at this time 06/11/2025 Chronic nasal congestion (ICD-10 - R09.81) refer to director of direct marketing as noted 06/11/2025 Daytime somnolence (ICD-10 - R40.0) recommend home sleep study - had in-lab study 20-30 years ago which indicated mild CEM but did not tolerate CPAP trial at that time 06/11/2025 Benign prostatic hyperplasia with lower urinary tract symptoms (ICD-10 - N40.1) continue flomax 06/11/2025 Other obstructive an d reflux uropathy (ICD-10 - N13.8) 06/11/2025 Hypertension, essent ial (ICD-10 - I10) well controlled on current regimen 06/11/2025 Pure hypercholesterolemia (ICD-10 - E78.00) continue statin therapy 06/11/2025 Major depressive disorder with single episode, in full remission (ICD-10 - 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) rec increase sertraline to 50mg daily and re-eval in 4 weeks 06/11/2025 Lower extremity geovany a (ICD-10 - R60.0) stable on lasix and with compression 06/11/2025 Prediabetes (ICD-10 - R73.03) dietary changes, regular activity and monitoring 06/11/2025 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 (ICD-10 - M54.40) continue therapies and consider FU with NS if symptoms progress to pain with rest or significantly limit activity 06/11/2025 Pain, joint, knee, right (ICD-10 - M25.561) 06/11/2025 Pain, joint, shoulde r, left (ICD-10 - M25.512) Plan Of Treatment Treatment Notes Assessment Notes Medicare annual wellness visit, subseque nt screening exams and vaccinations UTD for age/season, no concerns about falls or cognitive changes at this time Chronic nasal congestion refer to allerg ist as noted Daytime somnolence recommend home sleep study - had in-lab study 20-30 years ago which indicated mild CEM but did not tolerate CPAP trial at that time Benign prostatic hyperplasia with lower urinary tract symptoms continue flomax Hypertension, essential well controlled on current regimen Pure hypercholesterolemia continue stati n therapy Major depressive disorder wi th single episode, in full remission rec increase sertraline to 50mg daily and re-eval in 4 weeks Lower extremity edema stable on lasix an d with compression Prediabetes dietary changes, reg ular activity and monitoring 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 continue therapies and consider FU with NS if symptoms progress to pain with rest or significantly limit activity Referrals Referral Date Details 06/11/2025 06/11/2025, [facility] Orth o for right knee and left shoulder pain, okay to order xrays prior if needed, [address] [facility], [place], [address], Next Appt Details Follow Up: 6 Months, Reason: Progress Notes * Joe LESTER RDOB:[birth year] (75 yo M)Acc No.[id number]:06/11/2025 Progress Notes Patient: Major MORELCLEMENCIAJoe Provider: LUKE Luther :1950 A ge:75 Y S ex:Male Date:06/11/2025 Address:[facility], [id number] Subjective: * Chief Complaints: * 1 . AWV and Fasting Labs. 2. Weakness, fever, chills, body aches and night sweats. * Medical History: H [place], Sleep disorder, Depressive d/o, ED, HLD, BPH, Degenerative arthritis. * Surgical History: R knee replacement 2016, Lt knee replacement 08/2020, colonoscopy 10/30/2021. * Hospitalization/Major Diagno stic Procedure: D enies Past Hospitalization. * Family History: F ather: . M other: . P aternal Grand Father: . P aternal Grand Mother: . M aternal Grand Father: . M aternal Grand Mother: . Paternal uncle: . C tana: alive. 2 son(s) - healthy. . * Social History: S moking A re you a: n onsmoker. R ecreational drug use: no. Exercise: yes. Home smoke detector use: yes. Caffeine: yes, frequency:1 cup coffee daily. Living Will: Yes. Alcohol: socially, daily. Sexually active: yes. Travel outside [place]: no. 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 * Medications: T aking Azelastine HCl [...] 108/72, Ht: 6 ft, Wt: 224.2, BMI:30.4. Assessment: * Assessment: 1. M [facility] annual wellness visit, subsequent - Z00.00 (Primary) [...] P ain, joint, shoulder, left - M25.512 Plan: * Treatment: 2. B dale aches L AB: Rapid Covid/Flu A-B Combo (Collection Date & Time - 06/11/2025) Value Reference Range R apid Covid neg * F colby A neg * F colby B neg * Dilcia Aden Stefanie 06/11/2025 11: 35:46 AM EDT > 3.?Chronic nasal congestion? Notes: refer to director of direct marketing as noted??4.?Daytime somnolence? Notes: recommend home sleep study - had in-lab study 20-30 years ago which indicated mild CEM but did not tolerate CPAP trial at that time??5.?Benign prostatic hyperplasia with lower urinary tract symptoms?LAB: [...] > pt informed ?LAB: COMPREHENSIVE METABOLIC PANEL (90000) (Collection Date & Time - 06/11/2025 11:41 [...] 60 - mL/min/1 .73m2 * Dilcia Aden Stefanie 06/13/2025 12: 11:20 PM EDT > lm Dilcia Aden Stefanie 06/13/2025 01:01:50 PM EDT > pt informed ?LAB: CBC (INCLUDES DIFF/PLT) (9059) (Collection Date & Time - 06/11/2025 11:41 [...] - % * A BSOLUTE NEUTROPHILS 3615 3963-2567 - cells/uL * L YMPHOCYTES 16.5 - [...] PM EDT > pt informed Notes: continue flomax??6.?Other obstructive and reflux uropathy?LAB: LIPID PANEL, STANDARD [...] > pt informed ?LAB: COMPREHENSIVE METABOLIC PANEL (40058) (Collection Date & Time - 06/11/2025 11:41 [...] > pt informed ?LAB: CBC (INCLUDES DIFF/PLT) (3264) (Collection Date & Time - 06/11/2025 11:41 [...] - % * A BSOLUTE NEUTROPHILS 3615 7146-8832 - cells/uL * L YMPHOCYTES 16.5 - [...] EDT > pt informed ?LAB: PSA, TOTAL (5410) (Collection Date & Time - 06/11/2025 11:41 AM)* Value Reference Range P SA, TOTAL 0.51 < OR = 4.00 - ng/mL * Dilcia Aden 06/13/2025 12: 11:20 PM EDT > Dilcia Lind 06/13/2025 01:01:50 PM EDT > pt informed 7.?Hypertension, essential?LAB: LIPID PANEL, STANDARD (7600) (Collection Date & [...] > pt informed ?LAB: COMPREHENSIVE METABOLIC PANEL (34826) (Collection Date & Time - 06/11/2025 11:41 [...] > pt informed ?LAB: CBC (INCLUDES DIFF/PLT) (2299) (Collection Date & Time - 06/11/2025 11:41 [...] - % * A BSOLUTE NEUTROPHILS 3615 9658-7509 - cells/uL * L YMPHOCYTES 16.5 - [...] > pt informed ?LAB: COMPREHENSIVE METABOLIC PANEL (67372) (Collection Date & Time - 06/11/2025 11:41 [...] > pt informed ?LAB: CBC (INCLUDES DIFF/PLT) (8637) (Collection Date & Time - 06/11/2025 11:41 [...] - % * A BSOLUTE NEUTROPHILS 3615 0595-6299 - cells/uL * L YMPHOCYTES 16.5 - [...] disorder with single episode, in full remission? Notes: rec increase sertraline to 50mg daily and re-eval in 4 weeks??10.?Lower extremity edema? Notes: stable on lasix and [...] > pt informed ?LAB: COMPREHENSIVE METABOLIC PANEL (16854) (Collection Date & Time - 06/11/2025 11:41 [...] - % * A BSOLUTE NEUTROPHILS [phone] - cells/uL * L YMPHOCYTES 16.5 - [...] of multiple sites in spine with sciatica? Notes: continue therapies and consider FU with NS if symptoms progress to pain with rest or significantly limit activity??13.?Pain, joint, knee, right? Referral To:Orthopedic Surgery ?Reason:[facility] Ortho for right knee and left shoulder pain, okay to order xrays prior if needed * Labs: * L ab: LYME DISEASE ANTIBODIES (IGG,IGM), IMMUNOBLOT (8593) (Collection Date & Time - 06/11/2025 11:41 AM) ?Lab: TEST AUTHORIZATION (Collection Date & Time - 06/11/2025 11:41 AM)* Value Reference Range T EST NAME: LYME DISEASE ANTIBODIES - * T EST CODE: 8593SB - * Major CANDELARIA CONTACT: CRISTIANO DUMONT - * [employer], support 05/30 03:40:16 : This order was created by the Interface. * Procedure Codes: 8 7636 RAPID COVID/FLU A & B COMBO, Modifiers: QW * Preventive Medicine: Counseling: L iving will [...] U TD. C OVID C ompleted series. Screening / Special Tests: C olonoscopy 2 022. P SA R ecommend screening. L marilyn Cancer Screening N ot indicated - nonsmoker. * Follow Up: 6 Months * * Electronic signature of Cira Ruiz APRN on 06/15/2025 at 09:37 AM EDT Sign off status: Pending * Provider: LUKE Luther Date: Generated for Mila rodriguez/Davin/Kathryn on: 09:37 AM EDT Consultation Request Notes Referral Date Referring Provider Referred Provider Not es 06/11/2025 Torri Ruiz , [facility] Ortho fo r right knee and left shoulder pain, okay to order xrays prior if needed
--- OUTSIDE RECORDS SUMMARY | 2025-06-12 05:44 | XMS_ITS ---
Author Organization [facility] Address [address] [place] [address] Care Team Providers Care Technician Telecommunication Systems Name Role Phone Felicity Jay Primary Care Provider FELICITY JAY Unavailable Unavaila ble REASON FOR VISIT x ray orders Encounters Encounter Location Date Provider Diagnosis [facility] [address] [place] [address] 06/12/2025 Felicity Misty Pain, joint, knee, right M25.561 and Shoulder pain, left M25.512 Assessments Encounter Date Diagnosis (ICD Code) Assessment Notes Treatment Notes Treatment Clinical Notes Section Notes 06/12/2025 Pain, joint, knee, right (ICD-10 - M25.561) 06/12/2025 Shoulder pain, left (ICD-10 - M25.512) Plan Of Treatment Pending Test Test Name Order Date X ray : Knee, Right 06/12/2025 X ray : Shoulder, Left 06/12/2025 Progress Notes * Joe KAUR RDOB:[birth year] (75 yo M)Acc No.[id number]:06/12/2025 Patient: Joe HALL :1950 A ge:75 Y S ex:Male Address:[address] [place], [address] Subjective: * Chief Complaints: * X ray [...] * true * Date: Generated for Mila rodriguez/Davin/Nguyensmitting on: 09:38 AM EDT
--- OUTSIDE RECORDS SUMMARY | 2025-06-12 06:19 | XMS_ITS ---
Author Organization [facility] Address [address] [facility] [address] [place] [address] Care Team Providers Care Valve Grinder Name Role Phone Felicity Jay Primary Care Provider FELICITY JAY Unavailable Unavaila ble REASON FOR VISIT not feeling well- wonders if tick bites have anything to do with it Encounters Encounter Location Date Provider Diagnosis [facility] [address] [facility] [address] [place] [address] 06/12/2025 Felicity Jay Elevated liver enzymes R74.8 Assessments Encounter Date Diagnosis (ICD Code) Assessment Notes Treatment Notes Treatment Clinical Notes Section Notes 06/12/2025 Elevated liver enzymes (ICD-10 - R74.8) Plan Of Treatment Pending Test Test Name Order Date Ultrasound : Right Upper Quadrant 2024 Progress Notes * Joe KAUR RDOB:[birth year] (75 yo M)Acc No.[id number]:06/12/2025 Patient: Major Joe SALAZAR :1950 A ge:75 Y S ex:Male Address:[address] [place], [address] Subjective: * Chief Complaints: * N ot feeling well- wonders if tick bites have anything to do with it * Medical History: * Surgical History: * Hospitalization/Major Diagno stic Procedure: * Medications: Objective: * Vitals: * Physical Examination: Assessment: * Assessment: 1. E levated liver enzymes - R74.8 Plan: * Treatment: * Procedure Codes: * true * Date: Generated for Mila Mcdonald/Kathryn on: 09:38 AM EDT
--- NOTE | 2025-06-15 | US_ITS ---
FINAL REPORT TECHNIQUE: Sonographic images of the right upper quadrant were obtained. CLINICAL HISTORY: ELEVATED LIVER ENZYMES COMPARISON: None FINDINGS: PANCREAS: Unremarkable. LIVER: There is fatty infiltration of the liver. No focal hepatic lesion. No intrahepatic biliary ductal dilatation. GALLBLADDER: No gallstones. There is layering sludge in the gallbladder. No gallbladder wall thickening or pericholecystic fluid. COMMON DUCT: 3 mm. Normal for age. RIGHT KIDNEY: The right kidney measures 10.1 cm. There is no hydronephrosis, mass, or stone. FREE FLUID: None. IMPRESSION: Fatty infiltration of the liver. Layering sludge is present in the gallbladder. No definite stones are seen. Reviewed, Interpreted and Dictated by Ana Murray MD Transcribed by Jaymie Rojas Authenticated and [facility]
--- OUTSIDE RECORDS SUMMARY | 2025-06-15 09:38 | XMS_ITS | Patient Health Record ---
Author Organization [facility] Address [address] [place] [address] Care Team Providers Care Can Intake Worker Name Role Phone Torri Jay Primary Care Provider [phone] TORRI JAY Unavailable Unavaila ble Migration, Provider Unavailable Unavailable Allergies Allergen (clinical drug ingredient) Drug/Non Drug Allergy documented on EMR Reaction Allergy Type Onset Date Status OYSTERS (uncoded) terrible stoma ch pains Allergy Active Results Component Value Reference Range Notes LIPID PANEL, STANDARD (7600) Reviewed date:06/13/2025 01:02:07 PM Interpretation: Performing Lab:VIRGILIO, [facility] [id number] [facility], [facility] ManorIfsdQR[address] Ajit Delgado Notes/Report: NON-FASTING; NON-FASTING; NON-FASTING; NON-FASTING; [...] factors. LDL-C is now calculated using the Sanjay-Katlyn calculation, which is a validated novel method providing better accuracy than the Friedewald equation in the estimation of LDL-C. Sanjay SEWELL et al. SONDRA. 2013;310(19): 9558-7124 (http://education.[employer].ViperMed/faq/FAQ 164) CHOL/HDLC RATIO 3.3 <5.0 (calc) NON HDL CHOLESTEROL 67 <130 mg/dL (calc) For patients with diabetes plus 1 major ASCVD risk factor, treating to a non-HDL-C goal of <100 mg/dL (LDL-C of <70 mg/dL) is considered a therapeutic option. COMPREHENSIVE METABOLIC PANE (36225) Reviewed date:06/13/2025 01:02:08 PM Interpretation: Performing Lab:VIRGILIO, [email or web address] [employer] [id number], AccuRevTitdMX[address] Ajit Delgado Notes/Report: NON-FASTING; NON-FASTING; NON-FASTING; NON-FASTING; [...] Reviewed date:06/13/2025 01:02:08 PM Interpretation: Performing Lab:VIRGILIO, [email or web address] [employer] [id number], AccuRevYeysWN[address] Ajit Delgado Notes/Report: NON-FASTING; NON-FASTING; NON-FASTING; NON-FASTING; [...] MPV 9.8 7.5-12.5 fL ABSOLUTE NEUTROPHILS 3615 5920-1658 cells/uL ABSOLUTE LYMPHOCYTES 457 773-2338 cells/uL ABSOLUTE MONOCYTES 500 200-950 cells/uL ABSOLUTE EOSINOPHILS 20 15-500 cells/uL ABSOLUTE BASOPHILS 40 0-200 cells/uL NEUTROPHILS 72.3 LYMPHOCYTES 16.5 MONOCYTES 10.0 EOSINOPHILS 0.4 BASOPHILS 0.8 LYME DISEASE ANTIBODIES (IGG ,IGM), IMMUNOBLOT (8593) Reviewed date:06/13/2025 01:02:08 PM Interpretation: Performing Lab:VIRGILIO, [email or web address] [facility], [facility] ManorDbwvZX[address] Ajit Delgado Notes/Report: NON-FASTING; NON-FASTING; NON-FASTING; NON-FASTING; NON-FAST FASTING:YES FASTING: YES HEMOGLOBIN A1c (496) Reviewed date:06/13/2025 01:02:08 PM Interpretation: Performing Lab:VIRGILIO, [address], [employer] MksnSO[address] Ajit Delgado Notes/Report: NON-FASTING; NON-FASTING; NON-FASTING; NON-FASTING; [...] diagnosis of diabetes in children. According to [place] Diabetes Association (ADA) guidelines, hemoglobin A1c <7.0% represents optimal control in non- diabetic patients. Different metrics may apply to specific patient populations. Standards of Medical Care in Diabetes(ADA). PSA, TOTAL (5363) Reviewed date:06/13/2025 01:02:09 PM Interpretation: Performing Lab:VIRGILIO [facility] [id number], [facility] HospitalAletXJ[address] Ajit Delgado Notes/Report: NON-FASTING; NON-FASTING; NON-FASTING; NON-FASTING; [...] Reviewed date:06/12/2025 07:06:01 PM Interpretation: Performing Lab:VIRGILIO [employer] [employer] [id number] [facility] [place] RdyaAE[address] Ajit Delgado Notes/Report: NON-FASTING; NON-FASTING; NON-FASTING; NON-FASTING; NON-FAST FASTING:YES FASTING: YES TEST NAME: LYME DISEASE ANTIBODIES TEST CODE: [id number] CLIENT CONTACT: CRISTIANO DUMONT REPORT ALWAYS MESSAGE SIGNATURE The laboratory testing on this patient was verbally requested or confirmed by the ordering physician or his or her authorized labor representative after contact with an employee of [email or web address]. Federal regulations require that we maintain on file written authorization for all laboratory testing. Accordingly we are asking that the ordering physician or his or her authorized labor representative sign a copy of this report and promptly return it to the client professional. Signature: COMMENT Please fax this signed form to [phone]. Please do not attempt to return this document by other methods. Documents will not be viewed by a labor representative. Please do not use this fax number for other service requests. Rapid Covid/Flu A-B Combo Reviewed date:06/11/2025 01:57:13 PM Interpretation: Performing Lab: Notes/Report: Rapid Covid neg Flu A neg Flu B neg Reason For Referral Reason [facility] to take over from [facility] Diagnosis 1 Chronic allergic rhi nitis (J30.9) Referral Organization [facility] Referring Provider First Name Torri Referring Provider Last Name Misty Referring Provider [facility] Referred Organization [facility] Referred Address [address] ,[place], [place],[address],[place] Referred Provider Specialty Allergy/Immu nology Referral Priority Routine Reason [facility] Ortho for right knee and left shoulder pain, okay to order xrays prior if needed Diagnosis 1 Pain, joint, knee, r ight (M25.561) Referral Organization [facility] Referring Provider First Name Torri Referring Provider Last Name Misty Referring Provider [facility] Referred Organization [facility] Referred Address [address],[address],[place] Referred Provider Specialty Orthopedic S urgery General Notes Criselda Walters 2024 10:26:39 AM >spoke with patient Referral Priority Routine Referral Appointment Date 06/18/2025 Medications Medication SIG (Take, Route, Frequency, Duration) Notes Start Date End Date Status Fish Oil 1000 MG 1 cap(s) orally daily Active Zepbound 15 MG/0.5ML 0.5 mL Subcutaneous once a week; Duration: 28 days Active Vitamin D3 1000 UNIT as directed orally once a day; Duration: 30 day(s) Active Azelastine HCl 0.05 % 1 gtt in each affe cted eye 2 times a day; Duration: 30 days Active amLODIPine Besylate 10 MG 1 tab(s) orall y once a day; Duration: 30 days Active Azelastine HCl Activ e Sertraline HCl 50 MG TAKE 1 TABLET BY [facility] DAILY; Duration: 90 Active Rosuvastatin Calcium 20 MG TAKE 1 TABLET BY MOUTH EVERY DAY; Duration: 90 Active Sildenafil Citrate 100 MG 1 tab(s) orall y once a day as needed; Duration: 30 days 03/26/2023 Active traZODone HCl 100 MG 1 tab(s) orally onc e a day (at bedtime); Duration: 90 days Active Levocetirizine Dihydrochlori de 5 MG 1 tab(s) orally once a day (in the evening); Duration: 90 days Active Celecoxib 100 MG TAKE 1 CAPSULE BY MOUTH TWICE DAILY; Duration: 90 Active Vitamin C 500 MG 1 tab(s) orally once a day; Duration: 30 day(s) Active Doxycycline Hyclate 100 MG 1 capsule Ora lly twice a day; Duration: 10 days 06/12/2025 Active TUMERICK 500MG ONE TABLET PO ONCE A DAY Active Tamsulosin HCl 0.4 MG TAKE 2 CAPSULES BY MOUTH DAILY; Duration: 30 Active Nebivolol HCl 10 MG TAKE 1 TABLET BY MARGIE TH EVERY DAY; Duration: 90 Active Montelukast Sodium 10 MG TAKE 1 TABLET B Y MOUTH DAILY; Duration: 90 Active hydroCHLOROthiazide 25 MG TAKE 1 TABLET BY MOUTH DAILY; Duration: 90 Active Immunizations Vaccine Route Administration Date Status Comme nts Pneumovax 23 IM Intramuscular 10/19/2022 Administered Boostrix Unknown 10/13/2017 Administered Social History Tobacco Use: Social History Observation Description Date Details (start date - stop date) Never Smoker NA - NA Smoking: Question Answer Notes Are you a: nonsmoker Problems Problem Type SNOMED Code ICD Code Onset Dates Problem Status W/U Status Risk Notes Problem Sciatica (27485161) Lumbago with sciatica, right side (M54.41) Active confirmed Problem Sciatica (65139685) Lumbago with sciatica, left side (M54.42) Active confirmed Problem Obstructive uropathy (3182003) Other obstructive and reflux uropathy (N13.8) Active confirmed Problem Localized edema (8730502) Localized edema (R60.0) Active confirmed Problem Osteoarthritis (913152711) Osteoarthritis (M19.90) Active confirmed Problem Essential hypertension (47707221) Hypertension, essential (I10) Active confirmed Problem Allergic rhinitis (58502811) Chronic allergic rhinitis (J30.9) Active confirmed Problem Obese class I (040841164729106) BMI 33.0-33.9,adult (Z68.33) Active confirmed Problem Arthralgia of the pelvic region and thigh (307482291) Left hip pain (M25.552) Active confirmed Problem Chronic pain (53319666) Other chronic pain (G89.29) Active confirmed Problem Skin lesion (06507778) Skin lesion (L98.9) Active confirmed Problem Erectile dysfunction (disorder) (655677346) Erectile dysfunction, unspecified erectile dysfunction type (N52.9) Active confirmed Problem Voiding dysfunction (505878698) Voiding dysfunction (N39.8) Active confirmed Problem Lymphedema (531942852) Lymphedema of both lower extremities (I89.0) Active confirmed Problem Obstructive sleep apnea syndrome (41210213) CEM (obstructive sleep apnea) (G47.33) Active confirmed Problem Edema (214912117) Lower extremit y edema (R60.0) Active confirmed Problem Restless legs (72053494) Restless leg (G25.81) Active confirmed Problem Obese class II (836841298713384) BMI 35.0-35.9,adult (Z68.35) Active confirmed Problem Daytime somnolence (593728279950) Daytime somnolence (R40.0) Active confirmed Problem Sleep disorder (99998126) Sleep disorder (G47.9) Active confirmed Problem Lower urinary tract symptoms due to benign prostatic hypertrophy (02388356375709) Benign prostatic hyperplasia with lower urinary tract symptoms (N40.1) Active confirmed Problem Pure hypercholesterolemia (192137053) Pure hypercholesterolemia (E78.00) Active confirmed Problem 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 confirmed Problem Obese class II (finding) (372048137563215) Obesity, Class II, BMI 35-39.9 (E66.9) Active confirmed Problem Single episode of major depression in full remission (46373393) Major depressive disorder with single episode, 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) Active confirmed Problem Sciatica (72708570) Lumbago of m ultiple sites in spine with sciatica (M54.40) Active confirmed Problem Hearing loss (64761591) Decreased hearing of both ears (H91.93) Active confirmed Problem Alcohol dependence (72767350) Alcohol dependence, daily use (F10.20) Active confirmed Problem Gastroesophageal reflux disease (172210512) Gastroesophageal reflux disease, unspecified whether esophagitis present (K21.9) Active confirmed Problem Cervical arthritis (483261936) Cervical arthritis (M47.812) Active confirmed Vital Signs Heart Rate 100 /min 06/11/2025 Temperature 97.3 degrees Fahrenheit 06/11/2025 Blood pressure diastolic 72 mm Hg 06/11/2025 Height 6 ft in 06/11/2025 Blood pressure systolic 108 mm Hg 06/11/2025 Weight 224.2 lbs 06/11/2025 BMI 30.4 kg/m2 06/11/2025 Encounters Encounter Location Date Provider Diagnosis [facility] [address] [place] [address] 12/02/2024 Provider Migration Nasal congestion R09.81 [facility] [address] [place] [address] 06/11/2025 Torri Jay Body aches R52 ; [facility] annual wellness visit, subsequent Z00.00 ; [...] M25.561 and Pain, joint, shoulder, left M25.512 [facility] [address] [place] [address] 07/20/2024 Torri Jay Bronchitis J40 and L oose stools R19.5 [facility] [address] [place] [address] 10/05/2024 Torri Jay Diastasis recti M62. 08 ; Abdominal wall defect, acquired M95.8 ; Nasal congestion R09.81 ; Obesity, Class II, BMI 35-39.9 E66.812 ; BMI 35.0-35.9,adult Z68.35 and Weight loss counseling, encounter for Z71.3 [facility] [address] [place] [address] 02/06/2025 Torri Misty Obesity, Class II, B GA 35-39.9 E66.812 ; Weight loss counseling, encounter for Z71.3 ; BMI 33.0-33.9,adult Z68.33 and Chronic allergic rhinitis J30.9 [facility] [address] [place] [address] 07/14/2024 Torri Misty [facility] [address] [place] [address] 07/24/2024 Torri Misty [facility] [address] [place] [address] 09/05/2024 Torri Misty CEM (obstructive sle ep apnea) G47.33 ; Obesity, Class II, BMI 35-39.9 E66.9 ; Daytime somnolence R40.0 ; BMI 35.0-35.9,adult Z68.35 ; Gastroesophageal reflux disease, unspecified whether esophagitis present K21.9 ; Sleep disorder G47.9 and Hypertension, essential I10 [facility] [address] [place] [address] 10/31/2024 Torri Misty [facility] [address] [place] [address] 11/27/2024 Torri Misty [facility] [address] [place] [address] 11/27/2024 Torri Misty [facility] [address] [place] [address] 12/25/2024 Torri Misty [facility] [address] [place] [address] 01/12/2025 Torri Misty [facility] [address] [address] 01/16/2025 Torri Misty [facility] [address] [place] [address] 01/23/2025 Torri Misty [facility] [address] [place] [address] 02/19/2025 Torri Misty [facility] [address] [place] [address] 03/21/2025 Torri Misty [facility] [address] [place] [address] 03/26/2025 Torri Misty [facility] [address] [facility] [address] [place], [place] [address] 04/16/2025 Torri Misty [facility] [address] [place] [address] 05/03/2025 Torri Misty [facility] [address] [place] [address] 05/07/2025 Torri Misty [facility] [address] [place] [address] 05/16/2025 Torri Misty [facility] [address] [place] [address] 06/06/2025 Torri Misty Chronic allergic rhi nitis J30.9 and Nasal congestion R09.81 [facility] [address] [facility] [address] [place], [place] [address] 06/12/2025 Torri Misty Pain, joint, knee, r ight M25.561 and Shoulder pain, left M25.512 [facility] [address] [facility] [address] [place], [place] [address] 06/12/2025 Torri Misty Elevated liver enzym es R74.8 [facility] [address] [facility] [address] [place], [place] [address] 06/12/2025 Torri Misty Assessments Encounter Date Diagnosis (ICD Code) Assessment Notes Treatment Notes Treatment Clinical Notes Section Notes 07/20/2024 Bronchitis (ICD-10 - J40) Symptoms seem to be improving, start doxycycline only if symptoms progress over the next several days. Return precautions reviewed 07/20/2024 Loose stools (ICD-10 - R19.5) Recommend trial of fiber supplement every day and probiotic for the next 6 weeks. Consider testing if no improvement. 09/05/2024 CEM (obstructive sle ep apnea) (ICD-10 - G47.33) 10/05/2024 Diastasis recti (ICD-10 - M62.08) CT imaging would be required to officially diagnose possible hernia but he is really asymptomatic at this point and has no significant visual defects. Recommend watchful waiting but strict return precautions and reasons for imaging were reviewed. 10/05/2024 Abdominal wall defec t, acquired (ICD-10 - M95.8) 02/06/2025 Weight loss counseling, encounter for (ICD-10 - Z71.3) 02/06/2025 Obesity, Class II, B GA 35-39.9 (ICD-10 - E66.812) complicates all aspects of care, would certainly benefit from continued weight loss. discussed importance of resistance training as tolerating, good protein and water intake. 06/06/2025 Chronic allergic rhinitis (ICD-10 - J30.9) 06/11/2025 Body aches (ICD-10 - R52) 06/12/2025 Pain, joint, knee, right (ICD-10 - M25.561) 06/12/2025 Elevated liver enzym es (ICD-10 - R74.8) 02/06/2025 BMI 33.0-33.9,adult (ICD-10 - Z68.33) 06/11/2025 Chronic nasal congestion (ICD-10 - R09.81) refer to exceptional children teacher assistant as noted 06/12/2025 Shoulder pain, left (ICD-10 - M25.512) 06/11/2025 Medicare annual wellness visit, subsequent (ICD-10 - Z00.00) screening exams and vaccinations UTD for age/season, no concerns about falls or cognitive changes at this time 06/06/2025 Nasal congestion (ICD-10 - R09.81) 12/02/2024 Nasal congestion (ICD-10 - R09.81) 10/05/2024 Nasal congestion (ICD-10 - R09.81) Samples of nasal saline provided. Recommend use every night. Continue nasal sprays. Trial of Xyzal and continue follow-up with [facility] children teacher assistant 09/05/2024 Obesity, Class II, B GA 35-39.9 (ICD-10 - E66.9) 09/05/2024 Daytime somnolence (ICD-10 - R40.0) 10/05/2024 Obesity, Class II, B GA 35-39.9 (ICD-10 - E66.812) complicates all aspects of care, would certainly benefit from weight loss, good candidate for GLP1I. Will have to investigate insurance coverage 02/06/2025 Chronic allergic rhinitis (ICD-10 - J30.9) being followed routinely by exceptional children teacher assistant for immunotherapy but their office has closed recently, new referral initiated as noted 06/11/2025 Daytime somnolence (ICD-10 - R40.0) recommend home sleep study - had in-lab study 20-30 years ago which indicated mild CEM but did not tolerate CPAP trial at that time 06/11/2025 Benign prostatic hyperplasia with lower urinary tract symptoms (ICD-10 - N40.1) continue flomax 10/05/2024 BMI 35.0-35.9,adult (ICD-10 - Z68.35) 09/05/2024 BMI 35.0-35.9,adult (ICD-10 - Z68.35) 09/05/2024 Gastroesophageal reflux disease, unspecified whether esophagitis present (ICD-10 - K21.9) 10/05/2024 Weight loss counseling, encounter for (ICD-10 - Z71.3) 06/11/2025 Other obstructive an d reflux uropathy (ICD-10 - N13.8) 06/11/2025 Hypertension, essential (ICD-10 - I10) well controlled on current regimen 09/05/2024 Sleep disorder (ICD- 10 - G47.9) 09/05/2024 Hypertension, essential (ICD-10 - I10) 06/11/2025 Pure hypercholesterolemia (ICD-10 - E78.00) continue [...] Date Ultrasound : Right Upper Quadrant 2024 X ray : Knee, Right 06/12/2025 X ray : Shoulder, Left 06/12/2025 Sleep Study 09/05/2024 Physical Therapy 03/28/2019 C-CBC 08/29/2019 C-CMP 08/29/2019 C-LIPID PANEL 08/29/2019 C-HGBA1C 08/29/2019 Physical Therapy : Lymphedema 04/22/2023 Physical Therapy : Lymphedema 06/02/2022 M-Vitamin B12 11/17/2023 M-Vitamin D 25 Hydroxy 11/17/2023 M-COVID PCR SINGLE RAPID 08/28/2020 Insurance Providers Payer Name Payer Address Payer Phone Subscriber Number Group Number Insured Name Patient Relationship to Insured Coverage Start Date Coverage End Date [facility] [address] [address] [place] [address] [id number] Joe Lester Self - patient is the insured [...]
--- OUTSIDE RECORDS SUMMARY | 2025-06-15 09:38 | XMS_ITS | Clinical Summary ---
Author Organization Healthcare Address [address] [place] [address] Care Team Providers Care Booking Police Officer Name Role Phone Don Kim MD Primary Care Provider [phone] Family History Medical History Relation Name Comments [...] of Treatment Not on file Care Teams Booking Police Officer Relationship Specialty Start Date End Date Don Kim MD [facility] [place] [address] PCP - General 01/10/21
--- OUTSIDE RECORDS SUMMARY | 2025-06-15 09:38 | XMS_ITS | Patient Health Record ---
Author Organization [facility] Address [address] [place] [address] Care Team Providers Care Formulation Technician Name Role Phone Self Referral, Self Primary Care Provider Neisha Roy Unavailable Migration, Provider Unavailable Unavailable Allergies Allergen (clinical drug ingredient) Drug/Non Drug Allergy documented on EMR Reaction Allergy Type Onset Date Status Shellfish (FN) OYSTERS (uncoded) stomach upset Allergy Active Reason [...] MG Tablet ; Duration: 90 Days Not-Taking Rosuvastatin Calcium *Please rev iew and pick correct strength-formula tion from What the Trend options. If intended option is not shown, discontinue and re-order from Quick Search* Active traZODone HCl 100 MG Tablet 1 tab(s) orally 2 times a day Active Furosemide 40 MG Tablet ; Duration: 30 Days Active Sertraline HCl 25 MG Tablet ; Duration: 30 Days Active amLODIPine Besylate *Please revi ew and pick correct strength-formula tion from What the Trend options. If intended option is not shown, discontinue and re-order from Quick Search* Active Social History Tobacco Use: Social History Observation Description Date Details (start date - stop date) Never Smoker NA - NA Social History General Social Info Question Answer Notes Substance use:- Smoking status: nonsmoker Did you have a drink contain ing alcohol in the past year? Yes How often did you have six or more drinks on one occasion in the past year? Never (0 points) How many drinks did you have on a typical day when you were drinking in the past year? 3 or 4 (1 point) How often did you have a drink containing alcohol in the past year? Four or more times a week (4 points) Have you used drugs other th an those for medical reasons in the past 12 months? No Personal History Marital status Do you have a partner or loved one who provides emotional support or feels safe to talk to? Yes Do you have a partner or loved one who can help with physical tasks (driving, cooking, helping to move) if you are unable to do so for yourself? Yes What is your highest level o f education? 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 work situation Physically demanding (ex- heavy lifting) or work that causes pain Do you exercise at least 2-3 times per week No Work does the job. Do you eat fast food more than 2-3 times per week? No Do you drink soda, pop, or sweet drinks (eg coffee) more than 2-3 times per week? No Do you eat sweets, deserts, or white breads/rice more than 2-3 times per week? 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 Encounters Encounter Location Date Provider Diagnosis [facility] [address] [place] [address] 08/05/2024 Provider Migration Plan Of Treatment Future Test Test Name Order Date CmbL23: LEFT C3-5 Cervical M edial Branch Block CMBB - 2 level (42235-8 G000) 03/04/2022 CmbR23: RIGHT C3-5 Cervical Medial Branch Block CMBB - 2 level (65639-2 G000) 03/04/2022 CmbL35: LEFT C5-T1 Cervical Medial Branch Block CMBB - 3 level (14290-1 G000) 04/15/2022 CmbR35: RIGHT C5-T1 Cervical Medial Branch Block CMBB - 3 level (51014-7 G000) 04/15/2022 PT - Movement Analysis; Eval uation and Treatment (11402, 00591, 97028, 04246, 22170, 67122) 05/12/2022 Insurance Providers Payer Name Payer Address Payer Phone Subscriber Number Group Number Insured Name Patient Relationship to Insured Coverage Start Date Coverage End Date [employer] [address] [address] [place] [address] [id number] Virgilio Lester Self - patient is the insured 2 Medical (General) History Medical History History ICD Code Arthritis Hypertension Surgical History Surgery Date(Month/Year) Knee surgery-total left 2020 Knee surgery- partial replacement right 2018 Hospitalization History Reason Date(Month/Year) none
--- OUTSIDE RECORDS SUMMARY | 2025-06-15 09:39 | XMS_ITS | Data Portability ---
Author Organization [facility] ADMIN Address [address] [place] [id number] Care Team Providers Care Instructor Product Inspection Name Role Phone TORRI RUIZ Primary Care Provider [phone] TORRI RUIZ Referring Provider [phone] Assessment No assessment recorded. Plan of Treatment [...] Details Recorded Time Nasal Endoscopy completed Augusto Aden [facility] & [place] 10/06/2023 11:51:03 Imaging Results None recorded. Procedure [...] Updated DateTime 10/06/2023 180.34 cm 36 kg/m2 243903.83 g 98.6 [degF] [facility] [place] 10/06/2023 11:20:35 Social History None recorded. Functional Status None recorded. Mental Status None recorded. Family History Nothing Reported. Medical History Condition Response Allergies/Hayfever Y Heart Problems N None N Heart Conditions N Emphysema N Migraines N Thyroid Problems N Glaucoma N Depression N Developmental Delay N Anemia N Immune System Disorder N Anesthesia Complications N Heart Attack ([place]) N Anxiety Disorder N Diabetes N Bleeding Disorder N Arthritis Y Hearing Loss N Tuberculosis N Acid Reflux (GERD) N Hyperlipidemia Y Cancer N Stroke N Asthma N Sleep Disorder N GERD/Reflux N Heart Disease N Headaches N Fibromyalgia N Hypertension Y Speech Delay N Kidney Disease N Past Encounters Encounter ID Performer Location Encounter Start Date Encounter Closed Date Diagnosis/Indication Diagnosis SNOMED-CT Code Diagnosis ICD10 Code Diagnosis IMO Codes Diagnosis Note [id number] Antoinette Cruz MD [facility] - [id number] [facility], [facility] [place] [id number] 10/06/2023 11:01:45 10/06/2023 12:01:07 Posterior rhinorrhea 36808638 R09.82 Nasal congestion 1291513 0 R09.81 Explained I saw nothing concerning on nasal endoscopy today in the office. No mass/tumor /lesion/po lyp seen. Explained he is on a number of medication s that can cause nasal congestion ; especially at night. One of those being a beta ga. I would recommend he try using nasal cones at night. He can get these easily without prescripti on from [facility]. Informatio n was given to him about [...] (MEDICARE REPLACEMENT/ ADVANTAGE - PPO) Joe Lester [id number] Joe Lester Notes Date Note Type Note Provider Name and Address Organization Details Recorded Time 10/06/2023 text/html 10/06/23- patient is here for nasal and chest congestion with trouble breathing from both sides. Patient states this has been going on his whole life but he got sick at [place] and he was having trouble breathing when [...] his hearing is good. Antoinette Cruz MD [address] [facility], [place], [id number], [facility] - [place] & [place] 10/06/2023 15:36:06
--- OUTSIDE RECORDS SUMMARY | 2025-06-15 09:40 | XMS_ITS | Data Portability ---
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 [email or web address] Not available 09/03/2022 13:52:09 12/09/2023 12/09/2023 Closely monitor PSA trend. Medical management lower urinary symptoms with tamsulosin. [email or web address] Not available 12/10/2023 08:10:26 12/21/2024 12/21/2024 74-year-old [...] urinalysis panel, auto 2024 025 [email or web address] [facility], [address], [address], [place], [address], 5 13:49:47 surgical pathology study 2024 025 [facility], [address] [place], [address], 5 10:13:22 urinalysis panel, auto 2023 024 [email or web address] [facility], [address], [facility] F, [place], [address], 4 08:10:15 PSA, serum or plasma [address] (Laboratory), [address], [place], [address], 4 16:10:26 PSA, serum or plasma 2022 023 [facility] (Laboratory), [address], [place], [address], 3 14:49:13 Referral None recorded. Procedures None recorded. Surgeries None recorded. Imaging None recorded. Medication Orders finasteride 5 mg tablet 2024 025 [id number], [address] [place], [place], [id number], 5 13:49:54 silodosin 8 mg capsule 2024 025 [id number], [address] [place], [place], [id number], 5 13:49:53 tamsulosin 0.4 mg capsule 2023 024 [email or web address] [facility] #[id number], [address] [place], [place], [id number], 5 13:49:17 tamsulosin 0.4 mg capsule 2022 023 [email or web address] [facility] #[id number], [address] , [place], [place], [id number], 13:49:17 Patient TargetsNo targets recorded. Patient Instructions Encounter Date Encounter Id Patient Instructions Last Modified By Organization Details Last Modified Time 09/03/2022 [id number] learning about healthy weight [email or web address] Not available 09/03/2022 13:50:51 11/17/2024 [id number] General Skin Protection: - SPF 30 or [...] conditions. [email or web address] Not available 11/17/2024 09:57:44 12/21/2024 [id number] learning about healthy weight [email or web address] Not available 12/21/2024 13:49:47 - Stop taking [...] auto Unknown Analyte Clean Catch Not Available [facility] [address], [place], [address], 12/09/2023 13:40:17 12/09/19 24 12/09/2023 urina lysis panel , auto Unknown Analyte Yellow Not Available [facility] With [address], [place], [address], 12/09/2023 13:40:17 12/09/19 24 12/09/2023 urina lysis panel , auto Unknown Analyte Clear Not Available [facility] With [address], [place], [address], 12/09/2023 13:40:17 12/09/19 24 12/09/2023 urina lysis panel , auto Unknown Analyte 1.010 Not Available [facility] With [address], [place], [address], 12/09/2023 13:40:17 12/09/19 24 12/09/2023 urina lysis panel , auto Unknown Analyte 1.003- 1.035 Not Available [facility] With [address], [place], [address], 12/09/2023 13:40:17 12/09/19 24 12/09/2023 urina lysis panel , auto Unknown Analyte 7.0 Not Available [facility] With [address], [place], [address], 12/09/2023 13:40:17 12/09/19 24 12/09/2023 urina lysis panel , auto Unknown Analyte 5.0-8. 0 Not Available [facility] With [address], [place], [address], 12/09/2023 13:40:17 12/09/19 24 12/09/2023 urina lysis panel , auto Unknown Analyte Negati ve Not Available [facility] With [address], [place], [address], 12/09/2023 13:40:17 12/09/19 24 12/09/2023 urina lysis panel , auto Unknown Analyte Negati ve Not Available [facility] With [address], [place], [address], 12/09/2023 13:40:17 12/09/19 24 12/09/2023 urina lysis panel , auto Unknown Analyte Negati ve Not Available [facility] With [address], [place], [address], 12/09/2023 13:40:17 12/09/19 24 12/09/2023 urina lysis panel , auto Unknown Analyte Negati ve Not Available [facility] With [address], [place], [address], 12/09/2023 13:40:17 12/09/19 24 12/09/2023 urina lysis panel , auto Unknown Analyte Negati ve Not Available [facility] With [address], [place], [address], 12/09/2023 13:40:17 12/09/19 24 12/09/2023 urina lysis panel , auto Unknown Analyte Negati ve Not Available [facility] With [address], [place], [address], 12/09/2023 13:40:17 12/09/19 24 12/09/2023 urina lysis panel , auto Unknown Analyte Normal Not Available [facility] With [address], [place], [address], 12/09/2023 13:40:17 12/09/19 24 12/09/2023 urina lysis panel , auto Unknown Analyte Normal Not Available [facility] With [address], [place], [address], 12/09/2023 13:40:17 12/09/19 24 12/09/2023 urina lysis panel , auto Unknown Analyte Negati ve Not Available [facility] With [address], [place], [address], 12/09/2023 13:40:17 12/09/19 24 12/09/2023 urina lysis panel , auto Unknown Analyte Negati ve Not Available [facility] With [address], [place], [address], 12/09/2023 13:40:17 12/09/19 24 12/09/2023 urina lysis panel , auto Unknown Analyte Normal Not Available [facility] With [address], [place], [address], 12/09/2023 13:40:17 12/09/19 24 12/09/2023 urina lysis panel , auto Unknown Analyte Normal 1 mg/dl Not Available [facility] With [address], [place], [address], 12/09/2023 13:40:17 12/09/19 24 12/09/2023 urina lysis panel , auto Unknown Analyte Negati ve Not Available [facility] With [address], [place], [address], 12/09/2023 13:40:17 12/09/19 24 12/09/2023 urina lysis panel , auto Unknown Analyte Negati ve Not Available [facility] With [address], [place], [address], 12/09/2023 13:40:17 12/09/19 24 12/09/2023 urina lysis panel , auto Unknown Analyte Negati ve Not Available [facility] With [address], [place], [address], 12/09/2023 13:40:17 12/09/19 24 12/09/2023 urina lysis panel , auto Unknown Analyte Negati ve Not Available [facility] [address], [place], [address], 12/09/2023 13:40:17 11/18/19 25 11/17/2024 SURGI ELIZABETH surgical SEE BELOW [place] topat holog y Repor t NAME: ELIZABETHHenokSÁNCHEZ HALL AM PATH: [id number] PROCE DURE DATE: [...] rmis has an atten uated rete ridge patte rn. There is focal kerat inocy te atypi a and disor ganiz ation , consi stent with actin ic kerat osis. The dermi s has fibro sis with enlar ged colla gen bundl es and a brisk angio proli ferat ion. VIGNESH COREA MD Shanna d Out Date: 11/21 10:13 1 Not Available [facility] [address] [facility], [place], [address], 11/21/2024 10:13:22 12/22/19 25 12/21/2024 urina lysis panel , auto Unknown Analyte Clean Catch Not Available [facility] [address], [place], [address], 12/21/2024 13:12:32 12/22/1912/21/2024 urina lysis panel , auto Unknown Analyte Yellow Not Available [facility] [address], [place], [address], 12/21/2024 13:12:32 12/22/19 25 12/21/2024 urina lysis panel , auto Unknown Analyte Clear Not Available [facility] With [address], [place], [address], 12/21/2024 13:12:32 12/22/19 25 12/21/2024 urina lysis panel , auto Unknown Analyte 1.010 Not Available [facility] [address], [place], [address], 12/21/2024 13:12:32 12/22/19 25 12/21/2024 urina lysis panel , auto Unknown Analyte 1.003 - 1.030 Not Available [facility] With [address], [place], [address], 12/21/2024 13:12:32 12/22/19 25 12/21/2024 urina lysis panel , auto Unknown Analyte 6.5 Not Available [facility] [address], [place], [address], 12/21/2024 13:12:32 12/22/19 25 12/21/2024 urina lysis panel , auto Unknown Analyte 5.0 - 8.0 Not Available [facility] With [address], [place], [address], 12/21/2024 13:12:32 12/22/19 25 12/21/2024 urina lysis panel , auto Unknown Analyte Negati ve Not Available [facility] [address], [place], [address], 12/21/2024 13:12:32 12/22/19 25 12/21/2024 urina lysis panel , auto Unknown Analyte Negati ve Not Available [facility] With [address], [place], [address], 12/21/2024 13:12:32 12/22/19 25 12/21/2024 urina lysis panel , auto Unknown Analyte Negati ve Not Available [facility] [address], [place], [address], 12/21/2024 13:12:32 12/22/19 25 12/21/2024 urina lysis panel , auto Unknown Analyte Negati ve Not Available [facility] [address], [place], [address], 12/21/2024 13:12:32 12/22/19 25 12/21/2024 urina lysis panel , auto Unknown Analyte Negati ve Not Available [facility] [address], [place], [address], 12/21/2024 13:12:32 12/22/19 25 12/21/2024 urina lysis panel , auto Unknown Analyte Negati ve Not Available [facility] [address], [place], [address], 12/21/2024 13:12:32 12/22/19 25 12/21/2024 urina lysis panel , auto Unknown Analyte Normal Not Available [facility] With [address], [place], [address], 12/21/2024 13:12:32 12/22/19 25 12/21/2024 urina lysis panel , auto Unknown Analyte Normal Not Available [facility] [address], [place], [address], 12/21/2024 13:12:32 12/22/19 25 12/21/2024 urina lysis panel , auto Unknown Analyte Negati ve Not Available [facility] [address], [place], [address], 12/21/2024 13:12:32 12/22/19 25 12/21/2024 urina lysis panel , auto Unknown Analyte Negati ve Not Available [facility] [address], [place], [address], 12/21/2024 13:12:32 12/22/19 25 12/21/2024 urina lysis panel , auto Unknown Analyte Normal Not Available [facility] [address], [place], [address], 12/21/2024 13:12:32 12/22/19 25 12/21/2024 urina lysis panel , auto Unknown Analyte Normal Not Available [facility] [address], [place], [address], 12/21/2024 13:12:32 12/22/19 25 12/21/2024 urina lysis panel , auto Unknown Analyte Negati ve Not Available [facility] [address], [place], [address], 12/21/2024 13:12:32 12/22/19 25 12/21/2024 urina lysis panel , auto Unknown Analyte Negati ve Not Available [facility] [address], [place], [address], 12/21/2024 13:12:32 12/22/19 25 12/21/2024 urina lysis panel , auto Unknown Analyte Negati ve Not Available [facility] [address], [place], [address], 12/21/2024 13:12:32 12/22/19 25 12/21/2024 urina lysis panel , auto Unknown Analyte Negati ve Not Available [facility] [address], [place], [address], 12/21/2024 13:12:32 Result Notes None recorded. 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 9 15:00:32 Senile hyperker atosis 129182928 Active 2015 From Automate d Load;Pro vider: Markel Krueger tatus: Active Not Available [facility] 6 05:42:04 Hypertro phic conditio n of skin 30950799 Active 2015 From Automate d Load;Pro vider: Markel Krueger tatus: Active Not Available [facility] 6 05:42:04 Pain 33137788 Active 2015 From Automate d Load;Pro vider: Markel Krueger tatus: Active Not Available [facility] 6 05:42:04 Disorder of upper respirat ory system 496704121 Active 2015 From Automate d Load;Pro vider: Don Kim;Sta tus: Active Not Available [facility] 6 05:42:01 Cough 80394037 Active 2015 From Automate d Load;Pro vider: Don Kim;Sta tus: Active Not Available [facility] 6 05:42:01 Neck pain 01787713 Active 2015 From Automate d Load;Pro vider: Don Kim;Sta tus: Active Not Available [facility] [address] 05:42:[address] Concept Completed 201501/19/2019 From Automate d Load;Pro vider: Marybeth Montaño; Status: Active TIANA ORTIZ APRN [address] [place], [place], [address] [place] [address] , [facility] 9 15:00:14 Mood disorder Completed 201501/19/2019 From Automate d Load;Pro vider: Marybeth Montaño; Status: Active TIANA ORTIZ [employer] [address] [place], [address] , [facility] 9 15:00:12 Insomnia 598155617 Active 2015 From Automate d Load;Pro vider: Marybeth Montaño; Status: Active Not Available [facility] 6 05:42:04 Pain in right knee Active 2015 From Automate d Load;Pro vider: Mary Mckee ;Status: Active Not Available [facility] 6 05:42:04 Derangem ent of medial meniscus 047233764 Active 2015 From Automate d Load;Pro vider: Brandy Plata: Active Not Available [facility] 6 05:42:04 Cramp in lower leg associat ed with rest 218722552 Active 2015 From Automate d Load;Pro vider: Marybeth Montaño; Status: Active Not Available [facility] 6 05:42:04 Notes:: Depression Screening* Date:07/17/2016 Problem Notes None recorded. Procedures Surgical History Date Name Laterality Status Provider Name and Address Organization Details Recorded Time 12/08/19 DAK - Cryo AK completed Armand Barboza [facility] 12/07/2024 13:53:34 11/18/19 25 DAK - Cryo AK completed [facility] 11/17/2024 09:55:58 11/18/19 25 DAK - Biopsy, Tangential completed [facility] 11/17/2024 09:55:54 04/18/20 19 Excision Nail & Matrix completed THOR FARRELL DPM [address] [place], [address], [facility] 04/18/2019 10:45:11 01/25/20 19 Excision Nail & Matrix completed THOR FARRELL DPM [address] [place], [address], [facility] 01/24/2019 11:02:38 12/09/19 18 Airway Resistance completed Obdulia Mccord [facility] 12/08/2017 14:20:33 12/09/19 18 Diffusion Capacity completed Obdulia Mccord [facility] 12/08/2017 14:20:28 12/09/19 18 Lung Volumes, Plethysmography completed Obdulia Mccord [facility] 12/08/2017 14:20:24 12/09/19 18 Spirometry with Bronchodilator completed Obdulia Mccord [facility] 12/08/2017 14:20:38 11/16/19 18 EKG completed MARYBETH MONTAÑO APRN [address], [address], [facility] 11/16/2017 17:23:56 04/30/20 17 Arthroscopic Surgery completed Sumaya Hawthorne [facility] 11/15/2017 08:43:11 08/30/18 68 Tonsillectomy completed Flory Day [facility] 02/03/2017 08:07:10 Imaging Results None recorded. Procedure Notes None recorded. Medical Equipment None Reported. Allergies Allergen ID Allergen Name Allergen Category Reaction Reaction Severity Criticality Documentation Date Start Date Code Code System Note Provider Name and Address Organization Details Recorded Time 088741 Lipitor medicatio n Not available Not available Not available 07/23/20162005 07437 5 RxNorm Comme nt: rajesh ricci es;Cr eated By: Angelita krish Kassie ;Crea deni Date: 2005 8:15: 24 AM; Not Available [facility] 6 12:52:52 746984 omeprazol e medicatio n Not available Not available Not available 07/23/20162008 7646 RxNorm Comme nt: didnt contr ol symto ms;Cr eated By: Aniket nazarioCre ated Date: 07/26 9:59: 00 AM; Not Available [facility] 6 12:52:52 139719 Relafen medicatio n Not available Not available Not available 07/24/20162005 01934 4 RxNorm Comme nt: stoma ch probl ems/t ingli ng;Cr eated By: Angelita rd Kassie ;Crea deni Date: 2005 8:15: 15 AM; Not Available [facility] 6 07:55:27 Medications Name Sig Start Date [...] e 137 mcg (0.1 %) nasal spray [place] 2 sprays twice a day by intranas al route. 09/14 completed Not Available Not Available Not Available fluticaso ne propionat e 50 mcg/actua tion nasal spray,tanisha pension [place] 1 spray every day by intranas al [...] Available Dymista 137 mcg-50 mcg/spray nasal spray [place] 1 spray twice a day by intranas [...] Updated DateTime 09/03/2022 185.42 cm 32.7 kg/m2 798581.91 g Magnolia Logant [facility] 09/03/2022 13:06:01 Date Recorded Body height Provider Name an d Address Organization Details Last Updated DateTime 11/17/2024 185.42 cm Tammi Domínguez [facility] 11/17/2024 09:24:33 Date Recorded Body height Body mass index (BMI) Body weight Provider Name and Address Organization Details Last Updated DateTime 12/09/2023 185.42 cm 32.7 kg/m2 150506.91 fannie Hernandez [facility] 12/09/2023 13:39:02 Date Recorded Body height Body mass index (BMI) Body weight Provider Name and Address Organization Details Last Updated DateTime 12/21/2024 185.42 cm 33.6 kg/m2 468557.05 fannie Hernandez [facility] 12/21/2024 13:05:24 Social History Question Answer Notes LastModified by Organizat ion Details LastModified Time Tobacco Smoking Status Former Smoker smokes 1 cigar about once/[facility] 12/08/2017 14:16:47 How Much Tobacco [...] Many Years Have You Smoked Tobacco? 40 Information not available 12/07/2018 Sex: Male Functional Status Question Answer Note LastModified by Organization D etails LastModified Time What is your level of alcohol consumption? Moderate [email or web address] Information not available 12/07/2018 Mental Status None recorded. Family History Relationship Description Onset Age of this Age Resolved Age Notes LastModified by Organization Details LastModified Time Unspecified Relation Heart disease [email or web address] Not available 2016 08:06:34 Unspecified Relation History of hypertension [email or web address] Not available 02/2017 08:06:48 Father Malignant neoplasm of prostate [email or web address] Not available 2021 08:31:16 Medical History Condition Response Coronary Artery Disease N Other N Gout N Kidney Stones N Kidney Cyst N Enlarged Prostate Y Heart Arrhythmia N Emphysema N Erectile Dysfunction Y Head Trauma/Injury N Sexually Transmitted Disease N COPD N Depression Y Pneumonia N Incontinence N Prostate Problems Y [...] N Chemotherapy N Anemia N Transplant N Chest Pain N Back Pain Y Multiple Sclerosis N Proteinuria N Heart Attack (AK) N Mental Illness N Diabetes N Ovarian Cancer N Seizures/Epilepsy N Genitourinary problem(s) N Congestive Heart Failure (CHF) N Kidney Failure N Sleep Apnea Y Bronchitis Y Heart Disease N Hypertension Y Immunizations Vaccine Type Date Status Note Provider Nam e and Address Organization Details Recorded Time Pneumococcal conjugate PCV 13 6 completed MARYBETH MONTAÑO APRN [address] [place] [address], [address], [facility] 05/09/2017 20:02:19 Past Encounters Encounter ID Performer Location Encounter Start Date Encounter Closed Date Diagnosis/Indication Diagnosis SNOMED-CT Code Diagnosis ICD10 Code Diagnosis IMO Codes Diagnosis Note [id number] BETH BRIAN MD SURGERY SCHEDULE [address] [place] [address] 09/22/2016 08:51:13 09/22/2016 08:55:35 [id number] MARYBETH MONTA[place] [address] [place], [place] [address] 01/14/2017 09:18:58 01/14/2017 10:04:34 Hypertensive disorder 19065758 I10 Impotence of organic origin 995017524 N52.9 Familial c ombined hyperlipidemia 352688508 E78.4 Senile hyperkeratosis 39 3470760 L82.1 cetaphil for eczematous conditions . use daily. 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 Will require monitoring of oxygen saturation . He is stable for surgery. His ECG is stable with NSR. I have discussed which medication s to hold before surgery. Familial c ombined hyperlipidemia 396803201 E78.4 Pain in right knee 90854 18997 53934 M25.561 Hypertensive disorder 38 115534 I10 Body mass index 30+ - obesity 769843532 Z68.39 Z68.31 [id number] MARYBETH MONTAÑO [place] [address] 11/15/2017 08:23:18 11/15/2017 09:13:56 Body mass index 30+ - obesity 332334502 Z68.39 Z68.31 Dyspnea 374198995 R06.00 hx of smoking. I do not think this is cardiac in nature, ECG was wnl. Could be untreated sleep apnea. Sleep apnea 92809738 G47 .30 explained he may need evaluation again, could have worsened. [id number] ALAINA STOEKS MD PULMONARY [address] [facility], [address] [place] [address] 12/08/2017 13:38:46 12/14/2017 13:33:30 Dyspnea on exertion 19114248 R06.09 With a non specific vent impairment [...] work on weight loss instead. Allergic rhinitis 503381 04 J30.9 [id number] ALAINA STOKES MD PULMONARY [address] [facility], [address] [place] [id number] 03/24/2018 13:57:18 03/28/2018 07:06:37 Dyspnea on exertion 99881191 R06.09 With a non specific vent impairment [...] he wants further work up. Allergic rhinitis 182330 04 J30.9 [id number] MARYBETH MONTAÑO APRN [facility] [address] [place] [id number] 09/14/2018 09:41:31 09/21/2018 12:29:36 Adult health examination 894997345 Z00.00 Familial c ombined hyperlipidemia 074179340 E78.49 Hypertensive disorder 38 601853 I10 recheck at work and let me know how it's running Testicular hypofunction 828712199 E29.1 [id number] MARIANNE RANKIN MD RHEUMATOL OGY [address] [place] [address] 12/07/2018 08:07:15 12/07/2018 09:25:47 Generalized osteoarthritis [id number] M15.9 a very pleasant 68-year-ol d gentleman [...] 6 months. Chronic low back pain 27 [id number] M54.5 in terms of lower back pain, [...] is comfortabl e with the discussion . [id number] TIANA ORTIZ APRN [facility] [address] [address] 01/19/2019 14:32:00 01/25/2019 16:09:33 Left ingrown toenail with infection [id number] L60.0 Bactrim DS for 7 days, contact me if we need to extend the course, I will submit a referral to a [facility] in [place] he would like to go to. [id number] [facility] [address] ,[address] [address] 01/24/2019 09:15:23 01/24/2019 11:34:01 Ingrowing nail [id number] L60.0 Paronychia of toe 869465 002 L03.039 Pain in left foot 181352 7427 42446 M79.560 [id number] TIANA ORTIZ APRN [facility] [address] [address] 02/14/2019 09:22:56 02/17/2019 09:24:39 Right side sciatica [id number] 77588 M54.31 Baseline x-ray completed with degenerati on in the spine. Likely has a denture aggravated disc causing his sciatica. He also has very tight piriformis and hamstring muscles. Advised Heat, Formal PT 6 weeks, return for f/u at that time. 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 81 740677 F52.32 [id number] LILY ALVARADO MD [facility] [address] [place] [address] 8 11/20/2021 13:43:17 11/26/2021 17:46:06 Benign prostatic hyperplasia with outflow obstruction 798398202 N40.1 Primary er ectile dysfunction 767414117 N52.9 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 81 807620 F52.32 [id number] LILY ALVARADO MD [facility] [address] [place] [address] 8 01/01/2022 14:00:28 01/10/2022 15:36:03 Benign prostatic hyperplasia with outflow obstruction 488277395 N40.1 Acquired g eneralized anorgasmia 610109113 F52.32 [id number] LILY ALVARADO MD [facility] [address],[place] [address] 8 03/05/2022 14:46:36 03/16/2022 10:10:30 Benign prostatic hyperplasia with outflow obstruction 915114406 N40.1 Primary er ectile dysfunction 683372084 N52.9 [id number] LILY ALVARADO MD [facility] [address],[place] [address] 09/03/2022 12:55:02 09/09/2022 11:13:12 Benign prostatic hyperplasia with outflow obstruction 993723926 N40.1 Nocturia 943182218 R35.1 [id number] LILY ALVARADO MD [facility] [address] [address] 12/09/2023 13:21:39 12/11/2023 04:43:16 Benign prostatic hyperplasia with outflow obstruction 251863804 N40.1 Nocturia 023969871 R35.1 [id number] HE VEE MD [address] [address] 11/17/2024 09:07:46 11/17/2024 10:23:31 Multiple benign melanocytic nevi 823612293 D22.5 L81.4 L82.1 D18.01 Benign appearing lesions.Re [...] Neoplasm o f uncertain behavior of skin 15801284 D48.5 Location: L superior helix r/o BCC vs scar tissue - Bx performed today (see proc note(s) & surgical path order below for further detail, including location(s ) & DDX(s))- Wound care instructio ns reviewed/h andout provided- Will call with results & arrange tx as indicated at that time History of malignant neoplasm of skin 790048106 Z85.828 History of non melanoma skin cancer.No evidence of recurrence Actinic keratosis 280932 007 L57.0 -Precancer ous nature discussed -Will TX with LN2 today (see proc note) -FUP if sites persist after [place] [id number] HE VEE MD [facility] [address] [place] [address] 12/07/2024 13:42:20 12/07/2024 14:35:04 Actinic keratosis 996780871 L57.0 The nature of the diagnosis was explained. Pre-cancer ous.Biopsy proven AK. PATH: [id number] 0Will treat with LN2.F/u if treated lesions persist. [id number] LILY ALVARADO MD [facility] [address] [place] [address],[place] [address] 12/21/2024 12:51:24 12/22/2024 10:21:57 Benign prostatic hyperplasia with outflow obstruction 289509032 N40.1 N13.8 58724401 Discontinu e tamsulosin . Begin alternativ e pharmacoth erapy for symptom control. Regular follow-up to evaluate symptom improvemen t. Nocturia 251564234 R35.1 78833 Discontinu e tamsulosin due to inadequate control. [...] (MEDICARE REPLACEMENT/ ADVANTAGE - PPO) Joe Lester [id number] Joe Lester 11/17/2024 1 [employer] (PPO) Joe Lester [id number] Joe Lester 01/01/2025 1 [employer] (MEDICARE REPLACEMENT/ ADVANTAGE - PPO) Joe Lester [id number] Joe Lester 11/17/2024 [employer] (MEDICARE REPLACEMENT/ ADVANTAGE - PPO) Joe Lester [id number] Joe Lester Notes Date Note Type Note [...] 0 to once nightly. LILY ALVARADO MD [address] [place] [address], [phone], 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 He takes tamsulosin with improvement of lower urinary symptoms. No hesitancy. No urgency. Daytime frequency normal. Nocturia 0-1 times. No gross hematuria. No dysuria. He reports PSA with PCP at [facility]. LILY ALVARADO MD [address] [place] [address], [phone], [facility] 12/10/2023 08:11:10 11/17/2024 text/html ROS as noted in the HPI Pt is here for a full body skin exam today.History of NMSC of L ear ( doesn't know when or where it was done)New ptSpots of concern today: top of left ear HE VEE MD [address] [place] [address], [phone], [facility] 11/19/2024 12:27:17 12/07/2024 text/html ROS as noted in the HPI Left superior helix- Bx proven ACTINIC KERATOSISPATH: [id number]: here for LN2. HE VEE MD [address] [place] [address], [phone], [facility] 12/07/2024 16:53:09 12/21/2024 text/html The patient is [...] testing recommended; status unknown. LILY ALVARADO MD [address] [place] [address], [phone], [facility] 12/31/2024 18:59:17
== END 2025-06-15 23:59 | disposition home or self-care (01) ==
LOC: RAD 09:27
PROVIDERS: PCP Nurse Practitioner Family; Visit Provider Nurse Practitioner Family
DX: K82.8 Other specified diseases of gallbladder (principal); K76.0 Fatty (change of) liver, not elsewhere classified
CPT/HCPCS: 76705

== ENCOUNTER 2025-06-16 10:19 | Outpatient (CLI) | payer MEDICARE, SELFPAY ==
--- OUTSIDE RECORDS SUMMARY | 2024-08-05 17:00 | XMS_ITS ---
Author Organization [facility] Address [address] [place] [address] Care Team Providers Care Clinical Appeals Specialist Name Role Phone Self Referral, Self Primary Care Provider Neisha Roy Unavailable [phone] Migration, Provider Unavailable Unavailable Allergies Allergen (clinical drug ingredient) Drug/Non Drug Allergy documented on EMR Reaction Allergy Type Onset Date Status Shellfish (FN) OYSTERS (uncoded) stomach upset Allergy Active [facility] Encounter Medications Medication SIG (Take, Route, [...] iew and pick correct strength-formula tion from [employer] options. If intended option is not shown, discontinue and re-order from Quick Search* Active traZODone HCl 100 MG Tablet 1 tab(s) orally 2 times a day Active Furosemide 40 MG Tablet ; Duration: 30 Days Active amLODIPine Besylate *Please revi ew and pick correct strength-formula tion from [employer] options. If intended option is not shown, discontinue and re-order from Quick Search* Active Encounters [facility]counter Location Date [facility] [address] [place] [address] 08/05/2024 Provider Migration Plan Of Treatment No Information Progress Notes * Virgilio KAURDOB:1950 (75 yo M)Acc No.[id number]:08/05/2024 Patient: Virgilio Simmons Provider: Kristy escalante Migration :1950 A ge:74 Y S ex:Male Date:08/05/2024 [facility] [address] [facility], [id number] Pcp:Self Self Referral Subjective: * Chief Complaints: [...] Electronic signature of Prov ider Migration on 06/16/2025 at 10:23 AM EDT Sign off status: Pending * Provider: Kristy escalante Migration Date: 10/06/2023 Generated for Mila rodriguez/Davin/Kathryn on: 10:23 AM EDT
--- OUTSIDE RECORDS SUMMARY | 2024-12-02 17:30 | XMS_ITS ---
Author Organization [facility] GINO Address [address] [place] [address] Care Team Providers Care Tents Assembler Name Role Phone Felicity Jay Primary Care Provider FELICITY JAY Unavailable Unavaila ble Migration, Provider Unavailable Unavailable Allergies Allergen (clinical drug ingredient) Drug/Non Drug Allergy documented on EMR Reaction Allergy Type Onset Date Status OYSTERS (uncoded) terrible stoma ch pains Allergy [facility] Conversion Encounter Medications Medication SIG [...] review and pick correct strength-formula tion from Webspy options. If intended option is not shown, discontinue and re-order from Quick Search* Active Fish Oil 1000 MG 1 cap(s) orally daily Active Vitamin D3 1000 UNIT as directed orally once a day; Duration: 30 day(s) Active Encounters Encounter Location Date Provider Diagnosis [facility] [place] [address] [facility] [address] [place] [address] 12/02/2024 Provider Migration Nasal congestion R09.81 Assessments [...] * Joe KAUR RDOB:[birth year] (75 yo M)Acc No.[id number]:12/02/2024 Patient: Joe HALL Provider: Kristy Shafer :1950 A ge:74 Y S ex:Male Date:12/02/2024 Address:[facility] RASHEED SANTANA DASH [facility], [id number] Pcp:Felicity Jay Subjective: * Chief Complaints: * [...] Electronic signature of Sunny morris Migration on 06/16/2025 at 10:22 AM EDT Sign off status: Pending * Provider: Kristy escalante Migration Date: 0 12/02/2024 Generated for Mila rodriguez/Davin/Kathryn on: 1 10:22 AM EDT
--- OUTSIDE RECORDS SUMMARY | 2025-06-11 06:30 | XMS_ITS ---
Author Organization [facility] Address [address] [place] [address] Care Team Providers Care Blender Laborer Name Role Phone Torri Ruiz Primary Care Provider TORRI RUIZSEY Unavailable Unavaila ble Allergies Allergen (clinical drug ingredient) Drug/Non Drug Allergy documented on EMR Reaction Allergy Type Onset Date Status OYSTERS (uncoded) terrible stoma ch pains Allergy Active Results Component Value Reference Range Notes LYME DISEASE ANTIBODIES (IGG ,IGM), IMMUNOBLOT (5288) (Not yet reviewed by provider) Interpretation: Performing Lab:CB, [facility] F[address] [facility], [facility] HospitalVnyzKK[address] Ajit Delgado Notes/Report: NON-FASTING; NON-FASTING; NON-FASTING; NON-FASTING; [...] antibodies induced by exposure to other spirochetes. LIPID PANEL, STANDARD (7600) Reviewed date:06/13/2025 01:02:07 PM Interpretation: Performing Lab:VIRGILIO [employer] [facility] [address] [facility], [place] MfuaXV[address] Ajit Delgado Notes/Report: NON-FASTING; NON-FASTING; NON-FASTING; NON-FASTING; NON-FAST FASTING:YES FASTING: YES CHOLESTEROL, TOTAL 96 <200 mg/dL HDL CHOLESTEROL 29 > OR = 40 mg/dL TRIGLYCERIDES 200 <150 mg/dL If a non-fasting specimen was collected, consider repeat triglyceride testing on a fasting specimen if clinically indicated. Rhodes et al. J. of Clin. Lipidol. 2015;9:129-169. LDL-CHOLESTEROL 40 Reference range: <100 Desirable range <100 mg/dL for primary prevention; <70 mg/dL for patients with CHD or diabetic patients with > or = 2 CHD risk factors. LDL-C is now calculated using the Sanjay-Potts calculation, which is a validated novel method providing better accuracy than the Friedewald equation in the estimation of LDL-C. Sanjay SS et al. SONDRA. 2013;310(19): 3381-5186 (http://education.[employer].Mashed jobs/faq/FAQ 164) CHOL/HDLC RATIO 3.3 <5.0 (calc) NON HDL CHOLESTEROL 67 <130 mg/dL (calc) For patients with diabetes plus 1 major ASCVD risk factor, treating to a non-HDL-C goal of <100 mg/dL (LDL-C of <70 mg/dL) is considered a therapeutic option. COMPREHENSIVE METABOLIC PANSabina Iqbal (16667) Reviewed date:06/13/2025 01:02:08 PM Interpretation: Performing Lab:[facility]IO [facility] Dmrr[address], [facility] HospitalBvgzUD[address] Ajit Delgado Notes/Report: NON-FASTING; NON-FASTING; NON-FASTING; NON-FASTING; [...] 9) Reviewed date:06/13/2025 01:02:08 PM Interpretation: Performing Lab:[facility]IO [facility] Wqny77[address], [facility] HospitalOypvWB[address] Ajit Delgado Notes/Report: NON-FASTING; NON-FASTING; NON-FASTING; NON-FASTING; [...] MPV 9.8 7.5-12.5 fL ABSOLUTE NEUTROPHILS 3615 9063-0293 cells/uL ABSOLUTE LYMPHOCYTES 262 635-5294 cells/uL ABSOLUTE MONOCYTES 500 200-950 cells/uL ABSOLUTE EOSINOPHILS 20 15-500 cells/uL ABSOLUTE BASOPHILS 40 0-200 cells/uL NEUTROPHILS 72.3 LYMPHOCYTES 16.5 MONOCYTES 10.0 EOSINOPHILS 0.4 BASOPHILS 0.8 HEMOGLOBIN A1c (496) Reviewed date:06/13/2025 01:02:08 PM Interpretation: Performing Lab:VIRGILIO [facility], ItsPlatonicQflfRV[address] Ajit Delgado Notes/Report: NON-FASTING; NON-FASTING; NON-FASTING; NON-FASTING; [...] diagnosis of diabetes in children. According to [place] Diabetes Association (ADA) guidelines, hemoglobin A1c <7.0% represents optimal control in non- diabetic patients. Different metrics may apply to specific patient populations. Standards of Medical Care in Diabetes(ADA). PSA, TOTAL (5363) Reviewed date:06/13/2025 01:02:09 PM Interpretation: Performing Lab:[facility], ItsPlatonicUqioZJ[address] Ajit Delgado Notes/Report: NON-FASTING; NON-FASTING; NON-FASTING; NON-FASTING; NON-FAST FASTING:YES FASTING: YES PSA, TOTAL 0.51 < OR = 4.00 ng/mL The total PSA value from this assay system is standardized against the WHO standard. The test result will be approximately 20% lower when compared to the equimolar-standardized total PSA ([place]enny [place]). Comparison of serial PSA results should be interpreted with this fact in mind. This test was performed using the Siemens chemiluminescent method. Values obtained from different assay methods cannot be used interchangeably. PSA levels, regardless of value, should not be interpreted as absolute evidence of the presence or absence of disease. TEST AUTHORIZATION Reviewed date:06/12/2025 07:06:01 PM Interpretation: Performing Lab:VIRGILIO, [facility] Nnru5145 [facility], Caesar CarvalhoKwsgWI[address] Ajit Delgado Notes/Report: NON-FASTING; NON-FASTING; NON-FASTING; NON-FASTING; NON-FAST FASTING:YES FASTING: YES TEST NAME: LYME DISEASE ANTIBODIES TEST CODE: 8593SB CLIENT CONTACT: CRISTIANO DUMONT REPORT ALWAYS MESSAGE SIGNATURE The laboratory testing on this patient was verbally requested or confirmed by the ordering physician or his or her authorized call center support representative after contact with an employee of [employer]. Federal regulations require that we maintain on file written authorization for all laboratory testing. Accordingly we are asking that the ordering physician or his or her authorized call center support representative sign a copy of this report and promptly return it to the client integration manager. Signature: COMMENT Please fax this signed form to [phone]. Please do not attempt to return this document by other methods. Documents will not be viewed by a call center support representative. Please do not use this fax number for other service requests. Rapid Covid/Flu A-B Combo Reviewed date:06/11/2025 01:57:13 PM Interpretation: Performing Lab: Notes/Report: Rapid Covid neg Flu A neg Flu B neg Reason For Referral Reason [facility] Ortho for right knee and left shoulder pain, okay to order xrays prior if needed Diagnosis 1 Pain, joint, knee, r ight (M25.561) Referral Organization [facility] Referring Provider First Name Torri Referring Provider Last Name Misty Referring Provider [facility] Referred Organization [facility] Referred Address [address] [place], [place],[address],[place] Referred Provider Specialty Orthopedic S urgery General Notes Power, Criselda 2024 10:26:39 AM >spoke with patient Referral [...] 06/11/2025 Encounters Encounter Location Date Provider Diagnosis [place] [facility] [address] [place], [place] [address] 06/11/2025 Torri Ruiz Body aches R52 ; [facility] annual wellness visit, subsequent Z00.00 ; [...] nasal congestion (ICD-10 - R09.81) 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 as noted 06/11/2025 Daytime somnolence (ICD-10 - [...] Notes Assessment Notes Medicare annual wellness visit, [facility] nt screening exams and vaccinations UTD for [...] pain with rest or significantly limit activity Pending Test Test Name Order Date LYME DISEASE ANTIBODIES (IGG,IGM), IMMUN OBLOT (8593) 06/11/2025 Referrals Referral Date Details 06/11/2025 06/11/2025, [facility] Orth o for right knee and left shoulder pain, okay to order xrays prior if needed, [address] [facility], [place], [address], Next Appt Details Follow Up: 6 Months, Reason: Progress Notes * Joe LESTER RDOB:[birth year] (75 yo M)Acc No.[id number]:06/11/2025 Progress Notes Patient: Joe HALL Provider: LUKE Luther :1950 A ge:75 Y S ex:Male Date:06/11/2025 Address:[place], [place] Subjective: * Chief Complaints: * 1 . [...] aternal Grand Mother: . Paternal uncle: . Major fajardo: alive. 2 son(s) - healthy. . * Social History: S moking A re you a: n onsmoker. R ecreational drug use: no. Exercise: yes. Home smoke detector use: yes. Caffeine: yes, frequency:1 cup coffee daily. Living Will: Yes. Alcohol: socially, daily. Sexually active: yes. Travel outside [place]: no. 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 * Medications: T aking Azelastine HCl [...] 224.2, BMI:30.4. Assessment: * Assessment: 1. M nestor annual [...] F colby B neg * Dilcia Aden 06/11/2025 11: 35:46 AM EDT > 3.?Chronic nasal congestion? Notes: 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 as noted??4.?Daytime somnolence? Notes: recommend home sleep [...] > pt informed ?LAB: COMPREHENSIVE METABOLIC PANEL (65497) (Collection Date & Time - 06/11/2025 11:41 [...] > pt informed ?LAB: CBC (INCLUDES DIFF/PLT) (7944) (Collection Date & Time - 06/11/2025 11:41 [...] - % * A BSOLUTE NEUTROPHILS 3615 9380-1047 - cells/uL * L YMPHOCYTES 16.5 - [...] > pt informed ?LAB: COMPREHENSIVE METABOLIC PANEL (81576) (Collection Date & Time - 06/11/2025 11:41 [...] > pt informed ?LAB: CBC (INCLUDES DIFF/PLT) (1949) (Collection Date & Time - 06/11/2025 11:41 [...] - % * A BSOLUTE NEUTROPHILS 3615 2711-7007 - cells/uL * L YMPHOCYTES 16.5 - [...] M PV 9.8 7.5-12.5 - fL * Dilica Aden 06/13/2025 12: 11:20 PM EDT > [...] > pt informed ?LAB: COMPREHENSIVE METABOLIC PANEL (21006) (Collection Date & Time - 06/11/2025 11:41 [...] - % * A BSOLUTE NEUTROPHILS 3615 0522-6812 - cells/uL * L YMPHOCYTES 16.5 - [...] > pt informed ?LAB: COMPREHENSIVE METABOLIC PANEL (55744) (Collection Date & Time - 06/11/2025 11:41 [...] > pt informed ?LAB: CBC (INCLUDES DIFF/PLT) (0247) (Collection Date & Time - 06/11/2025 11:41 [...] - % * A BSOLUTE NEUTROPHILS 3615 9358-9105 - cells/uL * L YMPHOCYTES 16.5 - [...] Aden 06/13/2025 12: 11:20 PM EDT > jacquie Dilcia Aden 06/13/2025 01:01:50 PM EDT > pt informed ?LAB: PSA, TOTAL (8778) (Collection Date & Time - 06/11/2025 11:41 [...] > pt informed ?LAB: COMPREHENSIVE METABOLIC PANEL (69986) (Collection Date & Time - 06/11/2025 11:41 [...] > pt informed ?LAB: CBC (INCLUDES DIFF/PLT) (5999) (Collection Date & Time - 06/11/2025 11:41 [...] - % * A BSOLUTE NEUTROPHILS 3615 5260-3841 - cells/uL * L YMPHOCYTES 16.5 - [...] activity??13.?Pain, joint, knee, right? Referral To:Orthopedic Surgery ?Reason:[facility] Ortho for right knee and left shoulder [...] 9 KD (IGM) BAND NON-REACTIVE - * Produce Run, support 05/30 03:40:15 : This order was created by the Interface. Dilcia Aden 06/13/2025 12:11:20 PM EDT > lm Dilcia Aden 06/13/2025 01:01:50 PM EDT > pt informed ?Lab: TEST AUTHORIZATION (Collection Date & Time - 06/11/2025 11:41 AM)* Value Reference Range T EST NAME: LYME DISEASE ANTIBODIES - * T EST CODE: 8593SB - * Major CANDELARIA CONTACT: CRISTIANO DUMONT - * Produce Run, support 05/30 03:40:16 : This order was [...] Electronic signature of Cira Ruiz APRN on 06/16/2025 at 10:22 AM EDT Sign off status: Pending * Provider: LUKE Luther Date: Generated for Mila rodriguez/Davin/eTransmitting on: 1 10:22 AM EDT Consultation Request Notes Referral Date Referring Provider Referred Provider Not es 06/11/2025 Torri Ruiz , [facility] Ortho fo r right knee and left shoulder pain, okay to order xrays prior if needed
--- OUTSIDE RECORDS SUMMARY | 2025-06-12 05:44 | XMS_ITS ---
Author Organization [facility] Address [address] [place] [address] Care Team Providers Care Manager Of Data Name Role Phone Felicity Jay Primary Care Provider FELICITY JAY Unavailable Unavaila ble REASON FOR VISIT x ray orders Encounters Encounter Location Date Provider Diagnosis [facility] [address] [place] [address] 06/12/2025 Felicity Misty Pain, joint, knee, right [...] * Joe KAUR RDOB:[birth year] (75 yo M)Acc No.[id number]:06/12/2025 Patient: Joe HALL :1950 A ge:75 Y S ex:Male Address:[address] [place], [address] Subjective: * Chief Complaints: * X ray [...] * true * Date: Generated for Mila rodriguez/Davin/eTdrewsmitting on: 10:23 AM EDT
--- OUTSIDE RECORDS SUMMARY | 2025-06-12 06:19 | XMS_ITS ---
Author Organization [facility] Address [address] [facility] [address] [place] [address] Care Team Providers Care Value Stream Coach Name Role Phone Felicity Jay Primary Care Provider FELICITY JAY Unavailable Unavaila ble REASON FOR VISIT not feeling well- wonders if tick bites have anything to do with it Encounters Encounter Location Date Provider Diagnosis [facility] [address] [facility] [address] [place] [address] 06/12/2025 Felicity Jay Elevated liver enzymes R74.8 Assessments Encounter Date Diagnosis (ICD Code) Assessment Notes Treatment Notes Treatment Clinical Notes Section Notes 06/12/2025 Elevated liver enzymes (ICD-10 - R74.8) Plan Of Treatment Pending Test Test Name Order Date Ultrasound : Right Upper Quadrant 2024 Progress Notes * Joe KAUR RDOB:[birth year] (75 yo M)Acc No.[id number]:06/12/2025 Patient: Major Joe SALAZAR :1950 A ge:75 Y S ex:Male Address:[address] [place], [address] Subjective: * Chief Complaints: * N ot feeling well- wonders if tick bites have anything to do with it * Medical History: * Surgical History: * Hospitalization/Major Diagno stic Procedure: * Medications: Objective: * Vitals: * Physical Examination: Assessment: * Assessment: 1. E levated liver enzymes - R74.8 Plan: * Treatment: * Procedure Codes: * true * Date: Generated for Mila Mcdonald/Kathryn on: 10:22 AM EDT
--- OUTSIDE RECORDS SUMMARY | 2025-06-15 11:32 | XMS_ITS ---
Author Organization [facility] Address [address] [facility] [address] [place] [address] Care Team Providers Care Tattooer Name Role Phone Felicity Jay Primary Care Provider [phone] FELICITY JAY Unavailable Unavaila ble Encounters Encounter Location Date Provider Diagnosis [facility] [address] [place] [address] 06/15/2025 Felicity Jay Body aches R52 and Acute cough R05.1 Assessments Encounter Date Diagnosis (ICD Code) Assessment Notes Treatment Notes Treatment Clinical Notes Section Notes 06/15/2025 Body aches (ICD-10 - R52) 06/15/2025 Acute cough (ICD-10 - R05.1) Plan Of Treatment Pending Test Test Name Order Date X ray : Chest 06/15/2025 M-MINIRP 06/15/2025 Progress Notes * Joe KAUR RDOB:[birth year] (75 yo M)Acc No.[id number]:06/15/2025 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
--- OUTSIDE RECORDS SUMMARY | 2025-06-16 10:22 | XMS_ITS | Patient Health Record ---
Author Organization [facility] Address [address] [place] [address] Care Team Providers Care Assistant Case Manager Name Role Phone Self Referral, Self Primary Care Provider Neisha Roy Unavailable [phone] Migration, Provider Unavailable Unavailable Allergies Allergen [...] iew and pick correct strength-formula tion from Offerboard options. If intended option is not shown, discontinue and re-order from Quick Search* Active traZODone HCl 100 MG Tablet 1 tab(s) orally 2 times a day Active Furosemide 40 MG Tablet ; Duration: 30 Days Active Sertraline HCl 25 MG Tablet ; Duration: 30 Days Active amLODIPine Besylate *Please revi ew and pick correct strength-formula tion from Offerboard options. If intended option is not shown, [...] status? Full-time Empl oyed, Part-time employed [employer], [employer]. 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 work situation [...] confirmed Encounters Encounter Location Date Provider Diagnosis [facility] [address] [place] [address] 08/05/2024 Provider Migration Plan Of Treatment Future Test Test Name Order Date CmbL23: LEFT C3-5 Cervical M edial Branch Block CMBB - 2 level (21525-3 G000) 03/04/2022 CmbR23: RIGHT C3-5 Cervical Medial Branch Block CMBB - 2 level (98894-0 G000) 03/04/2022 CmbL35: LEFT C5-T1 Cervical Medial Branch Block CMBB - 3 level (01277-5 G000) 04/15/2022 CmbR35: RIGHT C5-T1 Cervical Medial Branch Block CMBB - 3 level (20181-5 G000) 04/15/2022 PT - Movement Analysis; Eval uation and Treatment (53562, 90935, 89393, 36641, 54571, 07040) 05/12/2022 Insurance Providers Payer Name Payer Address Payer Phone Subscriber Number Group Number Insured Name Patient Relationship to Insured Coverage Start Date Coverage End Date [employer] [address] [address] [place] [address] [id number] Virgilio Lester Self - patient is the insured 2 Medical (General) History Medical History History ICD Code Arthritis Hypertension Surgical History Surgery Date(Month/Year) Knee surgery-total left 2020 Knee surgery- partial replacement right 2018 Hospitalization History Reason Date(Month/Year) none
--- OUTSIDE RECORDS SUMMARY | 2025-06-16 10:23 | XMS_ITS | Patient Health Record ---
Author Organization [facility] Address [address] [place] [address] Care Team Providers Care Scabbler Name Role Phone Torri Jay Primary Care Provider [phone] TORRI JAY Unavailable Unavaila ble Migration, Provider Unavailable Unavailable Allergies Allergen (clinical drug ingredient) Drug/Non Drug Allergy documented on EMR Reaction Allergy Type Onset Date Status OYSTERS (uncoded) terrible stoma ch pains Allergy Active Results Component Value Reference Range Notes LIPID PANEL, STANDARD (7600) Reviewed date:06/13/2025 01:02:07 PM Interpretation: Performing Lab:VIRGILIO, [facility] Evfc4593 [facility], [facility] Center[facility]ztRF[address] Ajit Delgado Notes/Report: NON-FASTING; NON-FASTING; NON-FASTING; NON-FASTING; [...] LDL-C. Sanjay SEWELL et al. SONDRA. 2013;310(19): 2986-1499 (http://education.[employer].Lono/faq/FAQ 164) CHOL/HDLC RATIO 3.3 <5.0 (calc) NON HDL CHOLESTEROL 67 <130 mg/dL (calc) For patients with diabetes plus 1 major ASCVD risk factor, treating to a non-HDL-C goal of <100 mg/dL (LDL-C of <70 mg/dL) is considered a therapeutic option. COMPREHENSIVE METABOLIC PANE (93585) Reviewed date:06/13/2025 01:02:08 PM Interpretation: Performing Lab:VIRGILIO, [facility] [address], Medic TraceGjcwYK[address] Ajit Delgado Notes/Report: NON-FASTING; NON-FASTING; NON-FASTING; NON-FASTING; [...] Reviewed date:06/13/2025 01:02:08 PM Interpretation: Performing Lab:VIRGILIO, [facility] [address], Medic TraceCmddGQ[address] Ajit Delgado Notes/Report: NON-FASTING; NON-FASTING; NON-FASTING; NON-FASTING; [...] MPV 9.8 7.5-12.5 fL ABSOLUTE NEUTROPHILS 3615 4160-5585 cells/uL ABSOLUTE LYMPHOCYTES 286 075-8123 cells/uL ABSOLUTE MONOCYTES 500 200-950 cells/uL ABSOLUTE EOSINOPHILS 20 15-500 cells/uL ABSOLUTE BASOPHILS 40 0-200 cells/uL NEUTROPHILS 72.3 LYMPHOCYTES 16.5 MONOCYTES 10.0 EOSINOPHILS 0.4 BASOPHILS 0.8 LYME DISEASE ANTIBODIES (IGG ,IGM), IMMUNOBLOT (8593) (Not yet reviewed by provider) Interpretation: Performing Lab:CB, [facility], [facility] ServicesRjjjAP[address] Ajit Delgado Notes/Report: NON-FASTING; NON-FASTING; NON-FASTING; NON-FASTING; [...] Reviewed date:06/13/2025 01:02:08 PM Interpretation: Performing Lab:[facility]IO [facility] [employer], Aerohive NetworksCvfuKA[address] Ajit Delgado Notes/Report: NON-FASTING; NON-FASTING; NON-FASTING; NON-FASTING; [...] diagnosis of diabetes in children. According to [place] Diabetes Association (ADA) guidelines, hemoglobin A1c <7.0% represents optimal control in non- diabetic patients. Different metrics may apply to specific patient populations. Standards of Medical Care in Diabetes(ADA). PSA, TOTAL (5363) Reviewed date:06/13/2025 01:02:09 PM Interpretation: Performing Lab:VIR[facility]IO [facility] [employer], Aerohive NetworksJzefGS[address] Ajit Delgado Notes/Report: NON-FASTING; NON-FASTING; NON-FASTING; NON-FASTING; NON-FAST FASTING:YES FASTING: YES PSA, TOTAL 0.51 < OR = 4.00 ng/mL The total PSA value from this assay system is standardized against the WHO standard. The test result will be approximately 20% lower when compared to the equimolar-standardized total PSA ([place]). Comparison of serial PSA results should be interpreted with this fact in mind. This test was performed using the Siemens chemiluminescent method. Values obtained from different assay methods cannot be used interchangeably. PSA levels, regardless of value, should not be interpreted as absolute evidence of the presence or absence of disease. TEST AUTHORIZATION Reviewed date:06/12/2025 07:06:01 PM Interpretation: Performing Lab:CB, [facility] Mqxj[address] [facility], Caesar CarvalhoMqgbLL[address] Ajit Delgado Notes/Report: NON-FASTING; NON-FASTING; NON-FASTING; NON-FASTING; NON-FAST FASTING:YES FASTING: YES TEST NAME: LYME DISEASE ANTIBODIES TEST CODE: 8593SB CLIENT CONTACT: CRISTIANO DUMONT REPORT ALWAYS MESSAGE SIGNATURE The laboratory testing on this patient was verbally requested or confirmed by the ordering physician or his or her authorized administrative representative after contact with an employee of [employer]. Federal regulations require that we maintain on file written authorization for all laboratory testing. Accordingly we are asking that the ordering physician or his or her authorized administrative representative sign a copy of this report and promptly return it to the client service executive. Signature: COMMENT Please fax this signed form to [phone]. Please do not attempt to return this document by other methods. Documents will not be viewed by a administrative representative. Please do not use this fax number for other service requests. Rapid Covid/Flu A-B Combo Reviewed date:06/11/2025 01:57:13 PM Interpretation: Performing Lab: Notes/Report: Rapid Covid neg Flu A neg Flu B neg Reason For Referral Reason [facility] to take over from [facility] Diagnosis 1 Chronic allergic rhi nitis (J30.9) Referral Organization [facility] Referring Provider First Name Torri Referring Provider Last Name Misty Referring Provider Speciality [facility] Referred Organization [facility] Referred Address [address] ,[place], [place],[address],[place] Referred Provider Specialty Allergy/Immu nology Referral Priority Routine Reason [facility] Ortho for right knee and left shoulder pain, okay to order xrays prior if needed Diagnosis 1 Pain, joint, knee, r ight (M25.561) Referral Organization [facility] Referring Provider First Name Torri Referring Provider Last Name Misty Referring Provider Speciality Family Bolivar deras Referred Organization [facility] Referred Address [address] [facility], [place], [place],[address],[place] Referred Provider Specialty Orthopedic S urgery General [...] (in the evening); Duration: 90 days Active Vitamin C 500 MG [...] TABLET BY MOUTH DAILY; Duration: 90 Active Celecoxib 100 MG TAKE 1 CAPSULE BY MOUTH TWICE DAILY; Duration: 90 Active Immunizations Vaccine Route [...] Status W/U Status Risk Notes Problem Sciatica (04598339) Lumbago with sciatica, right side (M54.41) Active confirmed Problem Sciatica (55767339) Lumbago with sciatica, left side (M54.42) Active confirmed Problem Obstructive uropathy (7291210) Other obstructive and reflux uropathy (N13.8) Active confirmed Problem Localized edema (1558356) Localized edema (R60.0) Active confirmed Problem Osteoarthritis (978330942) Osteoarthritis (M19.90) Active confirmed Problem Essential hypertension (31300737) Hypertension, essential (I10) Active confirmed Problem Allergic rhinitis (70138384) Chronic allergic rhinitis (J30.9) Active confirmed Problem Obese class I (822534772391567) BMI 33.0-33.9,adult (Z68.33) Active confirmed Problem Arthralgia of the pelvic region and thigh (249160451) Left hip pain (M25.552) Active confirmed Problem Chronic pain (23520593) Other chronic pain (G89.29) Active confirmed Problem Skin lesion (73368831) Skin lesion (L98.9) Active confirmed Problem Erectile dysfunction (disorder) (954340410) Erectile dysfunction, unspecified erectile dysfunction type (N52.9) Active confirmed Problem Voiding dysfunction (493780918) Voiding dysfunction (N39.8) Active confirmed Problem Lymphedema (167195404) Lymphedema of both lower extremities (I89.0) Active confirmed Problem Obstructive sleep apnea syndrome (36319579) CEM (obstructive sleep apnea) (G47.33) Active confirmed Problem Edema (187090316) Lower extremit y edema (R60.0) Active confirmed Problem Restless legs (19239534) Restless leg (G25.81) Active confirmed Problem Obese class II (963615441119565) BMI 35.0-35.9,adult (Z68.35) Active confirmed Problem Daytime somnolence (927571849012) Daytime somnolence (R40.0) Active confirmed Problem Sleep disorder (18441046) Sleep disorder (G47.9) Active confirmed Problem Lower urinary tract symptoms due to benign prostatic hypertrophy (65838204340757) Benign prostatic hyperplasia with lower urinary tract symptoms (N40.1) Active confirmed Problem Pure hypercholesterolemia (479676297) Pure hypercholesterolemia (E78.00) Active confirmed Problem 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 confirmed Problem Obese class II (finding) (002742664952106) Obesity, Class II, BMI 35-39.9 (E66.9) Active confirmed Problem Single episode of major depression in full remission (97335374) Major depressive disorder with single episode, 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) Active confirmed Problem Sciatica (26560218) Lumbago of m ultiple sites in spine with sciatica (M54.40) Active confirmed Problem Hearing loss (61331552) Decreased hearing of both ears (H91.93) Active confirmed Problem Alcohol dependence (91396658) Alcohol dependence, daily use (F10.20) Active confirmed Problem Gastroesophageal reflux disease (788574326) Gastroesophageal reflux disease, unspecified whether esophagitis present (K21.9) Active confirmed Problem Cervical arthritis (695783119) Cervical arthritis (M47.812) Active confirmed Vital Signs Heart Rate 100 /min 06/11/2025 Temperature 97.3 degrees Fahrenheit 06/11/2025 Blood pressure diastolic 72 mm Hg 06/11/2025 Height 6 ft in 06/11/2025 Blood pressure systolic 108 mm Hg 06/11/2025 Weight 224.2 lbs 06/11/2025 BMI 30.4 kg/m2 06/11/2025 Encounters Encounter Location Date Provider Diagnosis [facility] [address] [place] [address] 12/02/2024 Provider Migration Nasal congestion R09.81 [facility] [address] [place] [address] 06/11/2025 Torri Jay Body aches R52 ; Med icare annual wellness visit, subsequent Z00.00 ; Chronic [...] M25.561 and Pain, joint, shoulder, left M25.512 [facility] [address] [facility] [address] [place] [address] 07/20/2024 Torri Misty Bronchitis J40 and L oose stools R19.5 [facility] [address] [facility] [address] [place] [address] 10/05/2024 Torri Misty Diastasis recti M62. 08 ; Abdominal wall defect, acquired M95.8 ; Nasal congestion R09.81 ; Obesity, Class II, BMI 35-39.9 E66.812 ; BMI 35.0-35.9,adult Z68.35 and Weight loss counseling, encounter for Z71.3 [facility] [address] [facility] [address] [place] [address] 02/06/2025 Torri Jay Obesity, Class II, B IN 35-39.9 E66.812 ; Weight loss counseling, encounter for Z71.3 ; BMI 33.0-33.9,adult Z68.33 and Chronic allergic rhinitis J30.9 [facility] [address] [address] 07/14/2024 Torri Rahmanence [facility] [address] [address] 07/24/2024 Torri Rahmanence [facility] [address] [facility] [address] [place] [address] 09/05/2024 Torri Jay CEM (obstructive sle ep apnea) G47.33 ; Obesity, Class II, BMI 35-39.9 E66.9 ; Daytime somnolence R40.0 ; BMI 35.0-35.9,adult Z68.35 ; Gastroesophageal reflux disease, unspecified whether esophagitis present K21.9 ; Sleep disorder G47.9 and Hypertension, essential I10 [facility] [address] [place] [address] 10/31/2024 Torri Misty [facility] [address] [place] [address] 11/27/2024 Torri Misty [facility] [address] [place] [address] 11/27/2024 Torri Misty [facility] [address] [place] [address] 12/25/2024 Torri Misty [facility] [address] [place] [address] 01/12/2025 Torri Misty [facility] [address] [place] [address] 01/16/2025 Torri Misty [facility] [address] [place] [address] 01/23/2025 Torri Misty [facility] [address] [place] [address] 02/19/2025 Torri Misty [facility] [address] [place] [address] 03/21/2025 Torri Misty [facility] [address] [place] [address] 03/26/2025 Torri Misty [facility] [address] [place] [address] 04/16/2025 Torri Misty [facility] [address] [place] [address] 05/03/2025 Torri Misty [facility] [address] [place] [address] 05/07/2025 Torri Misty [facility] [address] [place] [address] 05/16/2025 Torri Misty [facility] [address] [place] [address] 06/06/2025 Torri Misty Chronic allergic rhi nitis J30.9 and Nasal congestion R09.81 [facility] [address] [place] [address] 06/12/2025 Torri Misty Pain, joint, knee, r ight M25.561 and Shoulder pain, left M25.512 [facility] [address] [place] [address] 06/12/2025 Torri Misty Elevated liver enzym es R74.8 [facility] [address] [place] [address] 06/12/2025 Torri Misty [facility] [address] [address] 06/15/2025 Torri Misty [facility] [address] [place] [address] 06/15/2025 Torritino RahmanMisty Body aches R52 and A cute cough R05.1 Assessments Encounter Date Diagnosis (ICD [...] - Z71.3) 02/06/2025 Obesity, Class II, B IN 35-39.9 (ICD-10 - E66.812) complicates all aspects of care, would certainly benefit from continued weight loss. discussed importance of resistance training as tolerating, good protein and water intake. 06/06/2025 Chronic allergic rhinitis (ICD-10 - J30.9) 06/11/2025 Body aches (ICD-10 - R52) 06/12/2025 Pain, joint, knee, right (ICD-10 - M25.561) 06/12/2025 Elevated liver enzym es (ICD-10 - R74.8) 06/15/2025 Body aches (ICD-10 - R52) 06/15/2025 Acute cough (ICD-10 - R05.1) 02/06/2025 BMI 33.0-33.9,adult (ICD-10 - Z68.33) 06/11/2025 Chronic nasal congestion (ICD-10 - R09.81) refer to communications manager as noted 06/12/2025 Shoulder pain, left (ICD-10 [...] Trial of Xyzal and continue follow-up with communications manager 09/05/2024 Obesity, Class II, B IN 35-39.9 (ICD-10 - E66.9) 09/05/2024 Daytime somnolence (ICD-10 - R40.0) 10/05/2024 Obesity, Class II, B IN 35-39.9 (ICD-10 - E66.812) complicates all aspects of care, would certainly benefit from weight loss, good candidate for GLP1I. Will have to investigate insurance coverage 02/06/2025 Chronic allergic rhinitis (ICD-10 - J30.9) being followed routinely by communications manager for immunotherapy but their office has closed [...] Order Date X ray : Chest 06/15/2025 Ultrasound : Right Upper Quadrant 2024 X ray : Knee, Right 06/12/2025 X ray : Shoulder, Left 06/12/2025 Sleep Study 09/05/2024 Physical Therapy 03/28/2019 C-CBC 08/29/2019 C-CMP 08/29/2019 C-LIPID PANEL 08/29/2019 C-HGBA1C 08/29/2019 Physical Therapy : Lymphedema 04/22/2023 Physical Therapy : Lymphedema 06/02/2022 M-Vitamin B12 11/17/2023 M-Vitamin D 25 Hydroxy 11/17/2023 M-COVID PCR SINGLE RAPID 08/28/2020 LYME DISEASE ANTIBODIES (IGG,IGM), IMMUN OBLOT (8593) 06/11/2025 M-MINIRP 06/15/2025 Insurance Providers Payer Name Payer Address Payer Phone Subscriber Number Group Number Insured Name Patient Relationship to Insured Coverage Start Date Coverage End Date [employer] [address] [address] [place] [address] [id number] Jeo Lester Self - patient is the insured [...]
--- OUTSIDE RECORDS SUMMARY | 2025-06-16 10:23 | XMS_ITS | Clinical Summary ---
Author Organization [facility] Address [address] [place] [address] Care Team Providers Care Radiological Metallurgist Name Role Phone Don Kim MD Primary Care Provider [phone] Family History Medical History Relation Name Comments [...] of Treatment Not on file Care Teams Radiological Metallurgist Relationship Specialty Start Date End Date Don Kim MD [facility] [place] [address] PCP - General 01/10/21
--- NOTE | 2025-06-16 10:40 | XR_ITS ---
PROCEDURE INFORMATION: Exam: XR Chest Exam date and time: 06/16/2025 10:33 AM Age: 75 years old Clinical indication: Cough; Additional info: Cough, body aches TECHNIQUE: Imaging protocol: Radiologic exam of the chest. Views: 2 views. Total images: 2 COMPARISON: CR CXR2V XR chest 2V 10/04/2018 12:48 PM FINDINGS: Lungs: Atelectatic and/or early infiltrative changes right lung base. Pleural spaces: No pleural effusion. No pneumothorax. Heart/Mediastinum: No cardiomegaly. Vasculature: Tortuosity of the thoracic aorta. Diaphragm: There is nonspecific elevation of the right hemidiaphragm. Bones/joints: Rightward curvature of the thoracic spine with mild degenerative changes. IMPRESSION: Atelectatic and/or early infiltrative changes right lung base.
== END 2025-06-16 23:59 | disposition home or self-care (01) ==
LOC: RAD 10:21
PROVIDERS: PCP Internal Medicine Adolescent Medicine; Visit Provider Nurse Practitioner Family
DX: R05.1 Acute cough (principal); R91.8 Other nonspecific abnormal finding of lung field; M47.814 Spondylosis without myelopathy or radiculopathy, thoracic region
CPT/HCPCS: 71046

== ENCOUNTER 2025-07-12 14:59 | Outpatient (CLI) | payer MEDICARE, SELFPAY ==
--- OUTSIDE RECORDS SUMMARY | 2024-08-05 16:00 | XMS_ITS ---
Author Organization [facility] Address [address] [place] [address] Care Team Providers Care Outbound Sales Advisor Name Role Phone Self Referral, Self Primary Care Provider Neisha Ryo Unavailable [phone] Migration, Provider Unavailable Unavailable Allergies Allergen (clinical drug ingredient) Drug/Non Drug Allergy documented on EMR Reaction Allergy Type Onset Date Status Shellfish (FN) OYSTERS (uncoded) stomach upset Allergy Active [facility] Encounter Medications Medication SIG (Take, Route, Frequency, Duration) Notes Start Date End Date Status hydroCHLOROthiazide 25 MG Tablet TAKE 1 TABLET BY MOUTH EVERY DAY; Duration: 90 Days Active Celecoxib 100 MG Capsule ; Duration: 6 Days Active FLUOXETINE (EQV-PROZAC) 20 MG TABLET TAKE 1 TABLET BY MOUTH EVERY DAY; Duration: 30 DAYS *Please review for potential replacement for e-prescription and drug interaction check* Active Lisinopril 40 MG Tablet ; Duration: 90 Days Not-Taking Sertraline HCl 25 MG Tablet ; Duration: 30 Days Active Rosuvastatin Calcium *Please rev iew and pick correct strength-formula tion from [employer] options. If intended option is not shown, discontinue and re-order from Quick Search* Active traZODone HCl 100 MG Tablet 1 tab(s) orally 2 times a day Active Furosemide 40 MG Tablet ; Duration: 30 Days Active amLODIPine Besylate *Please revi ew and pick correct strength-formula tion from [employer] options. If intended option is not shown, discontinue and re-order from Quick Search* Active Encounters Encounter Location Date [facility] [address] [place] [address] 08/05/2024 Provider Migration Plan Of Treatment No Information Progress Notes * Virgilio KAURDOB:1950 (75 yo M)Acc No.[id number]:08/05/2024 Patient: Virgilio Simmons Provider: Kristy escalante Migration :1950 A ge:74 Y S ex:Male Date:08/05/2024 Address:[facility] [address] [facility], [id number] Pcp:Self Self Referral Subjective: * Chief Complaints: * M ultum To Medispan Conversion Encounter * Medications: T akingamLODIPine Besylate , Notes to Pharmacist: *Please review and pick correct strength-formulation from [employer] options. If intended option is not shown, discontinue and re-order from Quick Search*Rosuvastatin Calcium , Notes to Pharmacist: *Please review and pick correct strength-formulation from [employer] options. If intended option is not shown, discontinue and re-order from Quick Search*traZODone HCl 100 MG Tablet 1 tab(s) orally 2 times a day Furosemide 40 MG Tablet Sertraline HCl 25 MG Tablet hydroCHLOROthiazide 25 MG Tablet TAKE 1 TABLET BY MOUTH EVERY DAY Celecoxib 100 MG Capsule FLUOXETINE (EQV-PROZAC) 20 MG TABLET TAKE 1 TABLET BY MOUTH EVERY DAY , Notes to Pharmacist: *Please review for potential replacement for e-prescription and drug interaction check*Taking amLODIPine Besylate , Notes to Pharmacist: *Please review and pick correct strength-formulation from [employer] options. If intended option is not shown, discontinue and re-order from Quick Search*Taking Rosuvastatin Calcium , Notes to Pharmacist: *Please review and pick correct strength-formulation from [employer] options. If intended option is not shown, discontinue and re-order from Quick Search*Taking traZODone HCl 100 MG Tablet 1 tab(s) orally 2 times a day Taking Furosemide 40 MG Tablet Taking Sertraline HCl 25 MG Tablet Taking hydroCHLOROthiazide 25 MG Tablet TAKE 1 TABLET BY MOUTH EVERY DAY Taking Celecoxib 100 MG Capsule Taking FLUOXETINE (EQV-PROZAC) 20 MG TABLET TAKE 1 TABLET BY MOUTH EVERY DAY , Notes to Pharmacist: *Please review for potential replacement for e-prescription and drug interaction check*Not-TakingLisinopril 40 MG Tablet Not-Taking Lisinopril 40 MG Tablet * Allergies: O YSTERS: stomach upset - Allergy - Criticality High * Electronic signature of Prov ider Migration on 07/12/2025 at 03:04 PM EST Sign off status: Pending * Provider: Kristy escalante Migration Date: 10/06/2023 Generated for Mila rodriguez/Davin/Kathryn on: 09/11/2024 03:04 PM EST
--- OUTSIDE RECORDS SUMMARY | 2024-12-02 16:30 | XMS_ITS ---
Author Organization [facility] Address [address] [place] [address] Care Team Providers Care Die Finisher Forging Name Role Phone Felicity Jay Primary Care Provider [phone] FELICITY JAY Unavailable Unavaila ble Migration, Provider Unavailable Unavailable Allergies Allergen (clinical drug ingredient) Drug/Non Drug Allergy documented on EMR Reaction Allergy Type Onset Date Status OYSTERS (uncoded) terrible stoma ch pains Allergy Active [facility] Conversion Encounter Medications Medication SIG (Take, Route, Frequency, Duration) Notes Start Date End Date Status ZEPBOUND PEN 5 MG/0.5 ML 5 MG SUBCUTANEO USLY ONCE A WEEK; Duration: 28 DAYS *Please review for potential replacement for e-prescription and drug interaction check* 11/27/2024 Active amLODIPine Besylate 10 MG 1 tab(s) orally once a day; Duration: 30 days Active Levocetirizine Dihydrochloride 5 MG 1 tab(s) orally once a day (in the evening); Duration: 90 days 10/05/2024 Active NEBIVOLOL 10 MG TAKE 1 TABLET BY MOUTH EVERY DAY; Duration: 90 *Please review for potential replacement for e-prescription and drug interaction check* Active hydroCHLOROthiazide 25 MG 1 tab(s) orally once a day; Duration: 90 days Active Azelastine HCl 0.05 % 1 gtt in each affected eye 2 times a day; Duration: 30 days 12/17/2022 Active Tamsulosin HCl 0.4 MG 2 caps orally once a day; Duration: 30 days Active Celecoxib 100 MG 1 cap(s) orally 2 times a day; Duration: 90 days Active traZODone HCl 100 MG 1 tab(s) orally once a day (at bedtime); Duration: 90 days Active Sertraline HCl 50 MG 1 tab(s) orally once a day; Duration: 90 days Active Sildenafil Citrate 100 MG 1 tab(s) orally once a day as needed; Duration: 30 days 03/26/2023 Active Vitamin C 500 MG 1 tab(s) orally once a day; Duration: 30 day(s) Active TUMERICK 500MG ONE TABLET PO ONCE A DAY *Please review for potential replacement for e-prescription and drug interaction check* Active Rosuvastatin Calcium 20 MG 1 tab(s) orally once a day; Duration: 90 days Active Montelukast Sodium 10 MG 1 tab(s) orally once a day; Duration: 90 days 08/16/2023 Active Azelastine HCl *Please review and pick correct strength-formula tion from [employer] options. If intended option is not shown, discontinue and re-order from Quick Search* Active Fish Oil 1000 MG 1 cap(s) orally daily Active Vitamin D3 1000 UNIT as directed orally once a day; Duration: 30 day(s) Active Encounters Encounter Location Date Provider Diagnosis [facility] [address] [facility] [address] [place], [place] [address] 12/02/2024 Provider Migration Nasal congestion R09.81 Assessments Encounter Date Diagnosis (ICD Code) Assessment Notes Treatment Notes Treatment Clinical Notes Section Notes 12/02/2024 Nasal congestion (ICD-10 - R09.81) Plan Of Treatment Medication Medication Name Sig Start Date Stop Date Notes ZEPBOUND PEN 5 MG/0.5 ML 5 MG SUBCUTANEO USLY ONCE A WEEK; Duration: 28 DAYS 11/27/2024 *Please review for potential replacement for e-prescription and drug interaction check* amLODIPine Besylate 10 MG 1 tab(s) orall y once a day; Duration: 30 days Levocetirizine Dihydrochloride 5 MG 1 tab(s) orally once a day (in the evening); Duration: 90 days 10/05/2024 hydroCHLOROthiazide 25 MG 1 tab(s) orall y once a day; Duration: 90 days Next Appt Details Provider Name:Felicity Fung ce, 07/16/2025 10:15:00 AM, [address], [address], [place], [address], Progress Notes * Joe KAUR RDOB:[birth year] (75 yo M)Acc No.[id number]:12/02/2024 Patient: Joe HALL Provider: Kristy escalante Migration :1950 A ge:74 Y S ex:Male Date:12/02/2024 Address:[facility] [address] [place], [id number] Pcp:Felicity Jay Subjective: * Chief Complaints: * 1 . Multum To Medispan Conversion Encounter. * Medical History: * Medications: T aking Azelastine HCl , Notes to Pharmacist: *Please review and pick correct strength-formulation from Medispan options. If intended option is not shown, discontinue and re-order from Quick Search*, Taking Fish Oil 1000 MG Capsule 1 cap(s) orally daily , Taking Vitamin D3 1000 UNIT Capsule as directed orally once a day , Taking Vitamin C 500 MG Tablet 1 tab(s) orally once a day , Taking TUMERICK 500MG TABLET ONE TABLET PO ONCE A DAY , Notes to Pharmacist: *Please review for potential replacement for e-prescription and drug interaction check*, Taking Rosuvastatin Calcium 20 MG Tablet 1 tab(s) orally once a day , Taking Montelukast Sodium 10 MG Tablet 1 tab(s) orally once a day , Taking Sildenafil Citrate 100 MG Tablet 1 tab(s) orally once a day as needed , Taking Azelastine HCl 0.05 % Solution 1 gtt in each affected eye 2 times a day , Taking Tamsulosin HCl 0.4 MG Capsule 2 caps orally once a day , Taking Celecoxib 100 MG Capsule 1 cap(s) orally 2 times a day , Taking traZODone HCl 100 MG Tablet 1 tab(s) orally once a day (at bedtime) , Taking Sertraline HCl 50 MG Tablet 1 tab(s) orally once a day , Taking NEBIVOLOL 10 MG TABLET TAKE 1 TABLET BY MOUTH EVERY DAY , Notes to Pharmacist: *Please review for potential replacement for e-prescription and drug interaction check* * Allergies: O YSTERS: terrible stomach pains. Objective: * Vitals: Assessment: * Assessment: 1. N shante congestion - R09.81 Plan: * Treatment: 2. O thers Start amLODIPine Besylate Tablet, 10 MG, 1 tab(s), orally, once a day, 30 days, 30, Refills 5; S tart hydroCHLOROthiazide Tablet, 25 MG, 1 tab(s), orally, once a day, 90 days, 90 Tablet, Refills 1; R efill ZEPBOUND PEN SOLUTION, 5 MG/0.5 ML, 5 MG, SUBCUTANEOUSLY, ONCE A WEEK, 28 DAYS, 2 ML, Refills 0, Notes to Pharmacist: *Please review for potential replacement for e-prescription and drug interaction check*. * * Electronic signature of Prov aniblar Migration on 07/12/2025 at 03:03 PM EST Sign off status: Pending * Provider: Kristy escalante Migration Date: 0 12/02/2024 Generated for Mila rodriguez/Davin/Kathryn on: 1 09/11/2024 03:03 PM EST
--- OUTSIDE RECORDS SUMMARY | 2025-06-11 05:30 | XMS_ITS ---
Author Organization [facility] Address [address] [place] [address] Care Team Providers Care It Field Technician Name Role Phone Torri Ruiz Primary Care Provider [phone] TORRI RUIZ Unavailable Unavaila ble Allergies Allergen (clinical drug ingredient) Drug/Non Drug Allergy documented on EMR Reaction Allergy Type Onset Date Status OYSTERS (uncoded) terrible stoma ch pains Allergy Active Results Component Value Reference Range Notes LIPID PANEL, STANDARD (7600) Reviewed date:06/13/2025 01:02:07 PM Interpretation: Performing Lab:[facility], [facility] [id number] [facility], [facility] [id number] Ajit Delgado Notes/Report: NON-FASTING; NON-FASTING; NON-FASTING; NON-FASTING; NON-FAST FASTING:YES FASTING: YES CHOLESTEROL, TOTAL 96 <200 mg/dL HDL CHOLESTEROL 29 > OR = 40 mg/dL TRIGLYCERIDES 200 <150 mg/dL If a non-fasting specimen was collected, consider repeat triglyceride testing on a fasting specimen if clinically indicated. Carmelo et al. J. of Clin. Lipidol. 2015;9:129-169. LDL-CHOLESTEROL 40 Reference range: <100 Desirable range <100 mg/dL for primary prevention; <70 mg/dL for patients with CHD or diabetic patients with > or = 2 CHD risk factors. LDL-C is now calculated using the Kathy calculation, which is a validated novel method providing better accuracy than the Friedewald equation in the estimation of LDL-C. Sanjay SEWELL et al. SONDRA. 2013;310(19): 7136-4566 (http://education.[facility].Acacia/faq/FAQ 164) CHOL/HDLC RATIO 3.3 <5.0 (calc) NON HDL CHOLESTEROL 67 <130 mg/dL (calc) For patients with diabetes plus 1 major ASCVD risk factor, treating to a non-HDL-C goal of <100 mg/dL (LDL-C of <70 mg/dL) is considered a therapeutic option. COMPREHENSIVE METABOLIC PANE (99817) Reviewed date:06/13/2025 01:02:08 PM Interpretation: Performing Lab:[facility], [email or web address] [address], [email or web address] Ajit Delgado Notes/Report: NON-FASTING; NON-FASTING; NON-FASTING; NON-FASTING; NON-FAST FASTING:YES FASTING: YES GLUCOSE 92 65-99 mg/dL Fasting reference interval UREA NITROGEN (BUN) 14 7-25 mg/dL CREATININE 0.79 0.70-1.28 mg/dL EGFR 93 > OR = 60 mL/min/1.73m2 BUN/CREATININE RATIO SEE NOTE: 6-22 (calc) Not Reported: BUN and Creatinine are within reference range. SODIUM 137 135-146 mmol/L POTASSIUM 3.4 3.5-5.3 mmol/L CHLORIDE 98 98-110 mmol/L CARBON DIOXIDE 28 20-32 mmol/L CALCIUM 8.9 8.6-10.3 mg/dL PROTEIN, TOTAL 7.3 6.1-8.1 g/dL ALBUMIN 4.2 3.6-5.1 g/dL GLOBULIN 3.1 1.9-3.7 g/dL (calc) ALBUMIN/GLOBULIN RATIO 1.4 1.0-2.5 (calc) BILIRUBIN, TOTAL 1.8 0.2-1.2 mg/dL ALKALINE PHOSPHATASE 114 35-144 U/L AST 90 10-35 U/L ALT 112 9-46 U/L CBC (INCLUDES DIFF/PLT) (639 9) Reviewed date:06/13/2025 01:02:08 PM Interpretation: Performing Lab:[facility], [email or web address] [address], [email or web address] Ajit Delgado Notes/Report: NON-FASTING; NON-FASTING; NON-FASTING; NON-FASTING; NON-FAST FASTING:YES FASTING: YES WHITE BLOOD CELL COUNT 5.0 3.8-10.8 Thousand/uL RED BLOOD CELL COUNT 4.42 4.20-5.80 Million/uL HEMOGLOBIN 13.8 13.2-17.1 g/dL HEMATOCRIT 39.4 38.5-50.0 % MCV 89.1 80.0-100.0 fL MCH 31.2 27.0-33.0 pg MCHC 35.0 32.0-36.0 g/dL For adults, a slight decrease in the calculated MCHC value (in the range of 30 to 32 g/dL) is most likely not clinically significant; however, it should be interpreted with caution in correlation with other red cell parameters and the patient's clinical condition. RDW 12.6 11.0-15.0 % PLATELET COUNT 183 140-400 Thousand/uL MPV 9.8 7.5-12.5 fL ABSOLUTE NEUTROPHILS 3615 1201-8870 cells/uL ABSOLUTE LYMPHOCYTES 204 261-5327 cells/uL ABSOLUTE MONOCYTES 500 200-950 cells/uL ABSOLUTE EOSINOPHILS 20 15-500 cells/uL ABSOLUTE BASOPHILS 40 0-200 cells/uL NEUTROPHILS 72.3 LYMPHOCYTES 16.5 MONOCYTES 10.0 EOSINOPHILS 0.4 BASOPHILS 0.8 LYME DISEASE ANTIBODIES (IGG ,IGM), IMMUNOBLOT (8593) Reviewed date:06/25/2025 11:38:25 AM Interpretation: Performing Lab:[facility], [facility], [facility] HospitalHxgmIY[address] Ajit Delgado Notes/Report: NON-FASTING; NON-FASTING; NON-FASTING; NON-FASTING; NON-FAST FASTING:YES FASTING: YES LYME DISEASE AB(IGG),BLOT NEGATIVE NEGATIVE 18 KD (IGG) BAND NON-REACTIVE 23 KD (IGG) BAND NON-REACTIVE 28 KD (IGG) BAND NON-REACTIVE 30 KD (IGG) BAND NON-REACTIVE 39 KD (IGG) BAND NON-REACTIVE 41 KD (IGG) BAND REACTIVE 45 KD (IGG) BAND NON-REACTIVE 58 KD (IGG) BAND NON-REACTIVE 66 KD (IGG) BAND NON-REACTIVE 93 KD (IGG) BAND NON-REACTIVE LYME DISEASE AB(IGM),BLOT NEGATIVE NEGATIVE 23 KD (IGM) BAND NON-REACTIVE 39 KD (IGM) BAND NON-REACTIVE 41 KD (IGM) BAND REACTIVE Lyme immunoblot testing should only be performed on samples from patients who have had a Positive or Equivocal result in a screening assay. As per CDC criteria, a Lyme disease IgG Immunoblot must show reactivity to at least 5 of 10 specific borrelial proteins to be considered positive; similarly, a positive Lyme disease IgM immunoblot requires reactivity to 2 of 3 specific borrelial proteins. Although considered negative, IgG reactivity to fewer specific borrelial proteins or IgM reactivity to only 1 protein may indicate recent B. burgdorferi infection and warrant testing of a later sample. A positive IgM but negative IgG result obtained more than a month after onset of symptoms likely represents a false- positive IgM result rather than acute Lyme disease. In rare instances, Lyme disease immunoblot reactivity may represent antibodies induced by exposure to other spirochetes. HEMOGLOBIN A1c (496) Reviewed date:06/13/2025 01:02:08 PM Interpretation: Performing Lab:[email or web address] [employer], Virtual Psychology [id number] Ajit Delgado Notes/Report: NON-FASTING; NON-FASTING; NON-FASTING; NON-FASTING; NON-FAST FASTING:YES FASTING: YES HEMOGLOBIN A1c 5.3 <5.7 % For the purpose of screening for the presence of diabetes: <5.7% Consistent with the absence of diabetes 5.7-6.4% Consistent with increased risk for diabetes (prediabetes) > or =6.5% Consistent with diabetes This assay result is consistent with a decreased risk of diabetes. Currently, no consensus exists regarding use of hemoglobin A1c for diagnosis of diabetes in children. According to [place] Diabetes Association (ADA) guidelines, hemoglobin A1c <7.0% represents optimal control in non- diabetic patients. Different metrics may apply to specific patient populations. Standards of Medical Care in Diabetes(ADA). PSA, TOTAL (5363) Reviewed date:06/13/2025 01:02:09 PM Interpretation: Performing Lab:[email or web address] [employer], [email or web address] Ajit Delgado Notes/Report: NON-FASTING; NON-FASTING; NON-FASTING; NON-FASTING; NON-FAST FASTING:YES FASTING: YES PSA, TOTAL 0.51 < OR = 4.00 ng/mL The total PSA value from this assay system is standardized against the WHO standard. The test result will be approximately 20% lower when compared to the equimolar-standardized total PSA (Henny Kalina). Comparison of serial PSA results should be interpreted with this fact in mind. This test was performed using the Siemens chemiluminescent method. Values obtained from different assay methods cannot be used interchangeably. PSA levels, regardless of value, should not be interpreted as absolute evidence of the presence or absence of disease. TEST AUTHORIZATION Reviewed date:06/12/2025 07:06:01 PM Interpretation: Performing Lab:[place], [facility] Ygch4795 [facility], [place] [id number] Ajit Delgado Notes/Report: NON-FASTING; NON-FASTING; NON-FASTING; NON-FASTING; NON-FAST FASTING:YES FASTING: YES TEST NAME: LYME DISEASE ANTIBODIES TEST CODE: 8593SB CLIENT CONTACT: CRISTIANO DUMONT REPORT ALWAYS MESSAGE SIGNATURE The laboratory testing on this patient was verbally requested or confirmed by the ordering physician or his or her authorized medical claims representative after contact with an employee of [facility]. Federal regulations require that we maintain on file written authorization for all laboratory testing. Accordingly we are asking that the ordering physician or his or her authorized medical claims representative sign a copy of this report and promptly return it to the client success specialist. Signature: COMMENT Please fax this signed form to [phone]. Please do not attempt to return this document by other methods. Documents will not be viewed by a medical claims representative. Please do not use this fax number for other service requests. Rapid Covid/Flu A-B Combo Reviewed date:06/11/2025 01:57:13 PM Interpretation: Performing Lab: Notes/Report: Rapid Covid neg Flu A neg Flu B neg Reason For Referral Reason [facility] Ortho for right knee and left shoulder pain, okay to order xrays prior if needed Diagnosis 1 Pain, joint, knee, r ight (M25.561) Referral Organization [facility] JESSICA Referring Provider First Name Torri Referring Provider Last Name Misty Referring Provider Speciality [facility] Referred Organization [facility] Referred Address [address] [facility] [address] [place], [place],[address], Referred Provider Specialty Orthopedic S urgery General Notes Criselda Walters 2024 10:26:39 AM >spoke with patient Referral Priority Routine Referral Appointment Date 06/18/2025 REASON FOR VISIT AWV and Fasting Labs, weakness, fever, chills, body aches and night sweats Medications Medication SIG (Take, Route, Frequency, Duration) Notes Start Date End Date Status Azelastine HCl 0.05 % 1 gtt in each affe cted eye 2 times a day; Duration: 30 days Active Levocetirizine Dihydrochlori de 5 MG 1 tab(s) orally once a day (in the evening); Duration: 90 days Active Tamsulosin HCl 0.4 MG TAKE 2 CAPSULES BY MOUTH DAILY; Duration: 30 Active Montelukast Sodium 10 MG TAKE 1 TABLET B Y MOUTH DAILY; Duration: 90 Active hydroCHLOROthiazide 25 MG TAKE 1 TABLET BY MOUTH DAILY; Duration: 90 Active Zepbound 15 MG/0.5ML 0.5 mL Subcutaneous once a week; Duration: 28 days Active amLODIPine Besylate 10 MG 1 tab(s) orall y once a day; Duration: 30 days Active Sertraline HCl 50 MG TAKE 1 TABLET BY MO UTH DAILY; Duration: 90 Active Rosuvastatin Calcium 20 MG TAKE 1 TABLET BY MOUTH EVERY DAY; Duration: 90 Active Sildenafil Citrate 100 MG 1 tab(s) orall y once a day as needed; Duration: 30 days 03/26/2023 Active traZODone HCl 100 MG 1 tab(s) orally onc e a day (at bedtime); Duration: 90 days Active Celecoxib 100 MG TAKE 1 CAPSULE BY MOUTH TWICE DAILY; Duration: 90 Active TUMERICK 500MG ONE TABLET PO ONCE A DAY Active Nebivolol HCl 10 MG TAKE 1 TABLET BY MARGIE TH EVERY DAY; Duration: 90 Active Vitamin C 500 MG 1 tab(s) orally once a day; Duration: 30 day(s) Active Fish Oil 1000 MG 1 cap(s) orally daily Active Vitamin D3 1000 UNIT as directed orally once a day; Duration: 30 day(s) Active Azelastine HCl Activ e Social History Tobacco Use: Social History Observation Description Date Details (start date - stop date) Never Smoker NA - NA Smoking: Question Answer Notes Are you a: nonsmoker Problems Problem Type SNOMED Code ICD Code Onset Dates Problem Status W/U Status Risk Notes Problem Obstructive sleep apnea syndrome (58886081) Moderate obstructive sleep apnea (G47.33) Active confirmed Problem Obesity (504377561) Obesity (BMI 30-39.9) (E66.9) Active confirmed Vital Signs Temperature 97.3 degrees Fahrenheit 06/11/20 25 Blood pressure systolic 108 mm Hg 06/11/20 25 Blood pressure diastolic 72 mm Hg 025 Heart Rate 100 /min 06/11/2025 Height 6 ft in 06/11/2025 Weight 224.2 lbs 06/11/2025 BMI 30.4 kg/m2 06/11/2025 Encounters Encounter Location Date Provider Diagnosis [facility] [address] [place], [place] [address] 06/11/2025 Torri Ruiz Body aches R52 ; [facility] annual wellness visit, subsequent Z00.00 ; Chronic nasal congestion R09.81 ; Daytime somnolence R40.0 ; Benign prostatic hyperplasia with lower urinary tract symptoms N40.1 ; Other obstructive and reflux uropathy N13.8 ; Hypertension, essential I10 ; Pure hypercholesterolemia E78.00 ; Major depressive disorder with single episode, 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 neg viral testing today. labs as noted which will evaluate WBC/different ial and additional testing may be recommended 06/11/2025 Medicare annual wellness visit, subsequent (ICD-10 - Z00.00) screening exams and vaccinations UTD for age/season, no concerns about falls or cognitive changes at this time 06/11/2025 Chronic nasal congestion (ICD-10 - R09.81) has consulted with adult protective caseworker/ENT , recommend continue current regimen 06/11/2025 Daytime somnolence (ICD-10 - R40.0) improved some with weight loss, monitor 06/11/2025 Benign prostatic hyperplasia with lower urinary tract symptoms (ICD-10 - N40.1) continue flomax, urology following as well 06/11/2025 Other obstructive an d reflux uropathy (ICD-10 - N13.8) 06/11/2025 Hypertension, essent ial (ICD-10 - I10) well controlled on current regimen 06/11/2025 Pure hypercholesterolemia (ICD-10 - E78.00) continue statin therapy 06/11/2025 Major depressive disorder with single episode, in full remission (ICD-10 - F32.5) improved on sertraline 06/11/2025 Lower extremity geovany a (ICD-10 - R60.0) stable on lasix and with compression 06/11/2025 Prediabetes (ICD-10 - R73.03) dietary changes, regular activity and monitoring 06/11/2025 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 (ICD-10 - M54.40) improved overall with therapies, weight loss, celebrex. monitor 06/11/2025 Pain, joint, knee, right (ICD-10 - M25.561) would like to consult with orthopedics at [facility] to review options 06/11/2025 Pain, joint, shoulde r, left (ICD-10 - M25.512) would like to consult with orthopedics at [facility] to review options 06/11/2025 Moderate obstructive sleep apnea (ICD-10 - G47.33) CPAP not well tolerated. Hopefully will improve with additional weight loss, Zepbound 06/11/2025 Obesity (BMI 30-39.9 ) (ICD-10 - E66.9) complicates all aspects of care but improved markedly on Zepbound Plan Of Treatment Treatment Notes Assessment Notes Medicare annual wellness visit, subseque nt screening exams and vaccinations UTD for age/season, no concerns about falls or cognitive changes at this time Benign prostatic hyperplasia with lower urinary tract symptoms continue flomax, urology following as well Hypertension, essential well controlled on current regimen Pure hypercholesterolemia continue stati n therapy Lower extremity edema stable on lasix an d with compression Prediabetes dietary changes, reg ular activity and monitoring Referrals Referral Date Details 06/11/2025 06/11/2025, [facility] Orth o for right knee and left shoulder pain, okay to order xrays prior if needed, [address], [place], [address], Next Appt Details Follow Up: 6 Months, Reason: Provider Name:Torri L Antonieta ce, 07/16/2025 10:15:00 AM, [address], [place], [address], Progress Notes * LESTERJoe MCINTYRE RDOB:[birth year] (75 yo M)Acc No.[id number]:06/11/2025 Progress Notes Patient: Joe HALL Provider: LUKE Luther :1950 A ge:75 Y S ex:Male Date:06/11/2025 Address:[address] [place] [address] [facility], [id number] Subjective: * Chief Complaints: * 1 . AWV and Fasting Labs. 2. Weakness, fever, chills, body aches and night sweats. * HPI: g en: Presents today for annual wellness exam. Due for monitoring labs Acutely, he reports fatigue, body aches, chills, occcasional cough above baseline, night sweats for 1-2 weeks. Worse in the past couple of days. Denies known exposure to illness, several ticks bites over the summer months but no rashes. HTN - At goal. Tolerating meds. No side effect. Continue current regimen. - no CP, SOA, palpitations Depression/Anxiety -on current regimen with Zoloft and trazodone for sleep. Back pain has improved some overall, mobility improved marginally since losing weight. He does report worsening right knee pain and left shoulder pain. 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 Denies new trauma. WRT lumbar DDD, he did see specialist at [facility], suggested conservative therapy but if progression/failure, fusion recommended Prior to the past 2 weeks his chronic congestion and allergy symptoms had been stable on current regimen. BPH symptoms stable, following with URO CEM - noted to have moderate CEM on sleep study 2023. Taking Zepbound as noted, has tolerated very well with significant weight loss and improvement in symptoms overall. * ROS: F UNCTIONAL STATUS: ADLS I ndependent for all ADL/IADL. R ESPIRATORY: no S hortness of breath. C ough y es. ? C ARDIOLOGY: no C hest pain. n o P alpitations. L eg edema?yes, i mproves with compression and lasix. C ONSTITUTIONAL: See HPI Y es. W eight loss yes, i ntentional.? D ERMATOLOGY: no R dl. E NDOCRINOLOGY: Reviewed, No Symptoms Reported: Y es. E NT: no C ough. n o S ore throat. n o S inus pain. G ASTROENTEROLOGY: Reviewed, No Symptoms Reported: Y es. M USCULOSKELETAL: back pain y es. J oint stiffness y es. J oint pain y es. J oint swelling y es. N EUROLOGY: Tingling numbness y es, l ower extremities, mild, intermittently. P SYCHOLOGY: See HPI Y es. U ROLOGY: Dysuria n o. n o B lood in urine. F requent urination y es. U rinary incontinence y es. * Medical History: H TN, Sleep disorder, Depressive d/o, ED, HLD, BPH, Degenerative arthritis and DDD, CEM, moderate on 2023 sleep study. * Surgical History: R knee replacement 2016, Lt knee replacement 08/2020, colonoscopy 10/30/2021. * Hospitalization/Major Diagno stic Procedure: D enies Past Hospitalization. * Family History: F ather: . M other: . P aternal Grand Father: . P aternal Grand Mother: . M aternal Grand Father: . M aternal Grand Mother: . Paternal uncle: . C hildren: alive. 2 son(s) - healthy. . * Social History: S moking A re you a: n onsmoker. R ecreational drug use: no. Exercise: yes. Home smoke detector use: yes. Caffeine: yes, frequency:1 cup coffee daily. Living Will: Yes. Alcohol: socially, daily. Sexually active: yes. Travel outside [place]: no. 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 * Medications: T aking Azelastine HCl , Taking Fish Oil 1000 MG Capsule 1 cap(s) orally daily , Taking Vitamin D3 1000 UNIT Capsule as directed orally once a day , Taking Vitamin C 500 MG Tablet 1 tab(s) orally once a day , Taking TUMERICK 500MG TABLET ONE TABLET PO ONCE A DAY , Taking Nebivolol HCl 10 MG Tablet TAKE 1 TABLET BY MOUTH EVERY DAY , Taking traZODone HCl 100 MG Tablet 1 tab(s) orally once a day (at bedtime) , Taking Celecoxib 100 MG Capsule TAKE 1 CAPSULE BY MOUTH TWICE DAILY , Taking Rosuvastatin Calcium 20 MG Tablet TAKE 1 TABLET BY MOUTH EVERY DAY , Taking Sildenafil Citrate 100 MG Tablet 1 tab(s) orally once a day as needed , Taking amLODIPine Besylate 10 MG Tablet 1 tab(s) orally once a day , Taking Sertraline HCl 50 MG Tablet TAKE 1 TABLET BY MOUTH DAILY , Taking Zepbound 15 MG/0.5ML Solution 0.5 mL Subcutaneous once a week , Taking Azelastine HCl 0.05 % Solution 1 gtt in each affected eye 2 times a day , Taking hydroCHLOROthiazide 25 MG Tablet TAKE 1 TABLET BY MOUTH DAILY , Taking Tamsulosin HCl 0.4 MG Capsule TAKE 2 CAPSULES BY MOUTH DAILY , Taking Montelukast Sodium 10 MG Tablet TAKE 1 TABLET BY MOUTH DAILY , Taking Levocetirizine Dihydrochloride 5 MG Tablet 1 tab(s) orally once a day (in the evening) , Medication List reviewed and reconciled with the patient * Allergies: O YSTERS: terrible stomach pains. Objective: * Vitals: N urse: jl, Pain: 3, Temp: 97.3, RR: 20, HR: 100, BP: 108/72, Ht: 6 ft, Wt: 224.2, BMI:30.4. * Examination: G eneral Examination: General P leasant and Cooperative, NAD on RA,. Oral cavity: M oist membranes. Heart: RRR. HEENT: p harynx and tonsils normal, TM's normal, mild nasal congestion. Lungs: L CTAB, No wheezes, crackles or rhonchi, Good air movement,. Abdomen: S oft, NTND, BSNA, No organomegaly or peritoneal signs.. Neurologic Exam: A lert and oriented x 3. Peripheral pulses: n ormal (2+) bilaterally. Extremities: t race edema BLE. neck s upple,, no thyromegaly,, no lymphadenopathy,. Psych N ormal Mood/Affect. Assessment: * Assessment: 1. M nestor annual wellness visit, subsequent - Z00.00 (Primary) 2 . B dale aches - R52 3 . C hronic nasal congestion - R09.81 4 . D aytime somnolence - R40.0 5 . B enign prostatic hyperplasia with lower urinary tract symptoms - N40.1 6 . O ther obstructive and reflux uropathy - N13.8 ? 7 . H ypertension, essential - I10 8 . P ure hypercholesterolemia - E78.00 9 . M ajor depressive disorder with single episode, in full remission - F32.5 1 0. L ower extremity edema - R60.0 1 1. P rediabetes - R73.03 1 2. L umbago of multiple sites in spine with sciatica - M54.40 ? 1 3. P ain, joint, knee, right - M25.561 1 4. P ain, joint, shoulder, left - M25.512 1 5. M oderate obstructive sleep apnea - G47.33 1 6. O besity (BMI 30-39.9) - E66.9 Plan: * Treatment: 2. B dale aches L AB: Rapid Covid/Flu A-B Combo (Collection Date & Time - 06/11/2025) Value Reference Range R apid Covid neg * F colby A neg * F colby B neg * Markie Dilcia Stefanie 06/11/2025 11: 35:46 AM EDT > Clinical Notes: infectious? neg viral testing today. labs as noted which will evaluate WBC/differential and additional testing may be recommended??3.?Chronic nasal congestion? Clinical Notes: has consulted with adult protective caseworker/ENT, recommend continue current regimen??4.?Daytime somnolence? Clinical Notes: improved some with weight loss, monitor??5.?Benign prostatic hyperplasia with lower urinary tract symptoms?LAB: LIPID PANEL, STANDARD (7600) (Collection Date & Time - 06/11/2025 11:41 AM)* Value Reference Range T RIGLYCERIDES 200 H <150 - mg/dL * C HOLESTEROL, TOTAL 96 <200 - mg/dL * H DL CHOLESTEROL 29 L > OR = 40 - mg/dL * L DL-CHOLESTEROL 40 - mg/dL (calc) * C HOL/HDLC RATIO 3.3 <5.0 - (calc) * N ON HDL CHOLESTEROL 67 <130 - mg/dL (calc) * Dilcia Aden 06/13/2025 12: 11:20 PM EDT > Dilcia Lind 06/13/2025 01:01:50 PM EDT > pt informed ?LAB: COMPREHENSIVE METABOLIC PANEL (46757) (Collection Date & Time - 06/11/2025 11:41 AM)* Value Reference Range G LUCOSE 92 65-99 - mg/dL * U FRANCHESKA NITROGEN (BUN) 14 7-25 - mg/dL * C REATININE 0.79 0.70-1.28 - mg/dL * B UN/CREATININE RATIO SEE NOTE: 02-18 - (calc) * S ODIUM 137 135-146 - mmol/L * P OTASSIUM 3.4 L 3.5-5.3 - mmol/L * C HLORIDE 98 98-110 - mmol/L * C ARBON DIOXIDE 28 20-32 - mmol/L * C ALCIUM 8.9 8.6-10.3 - mg/dL * P ROTEIN, TOTAL 7.3 6.1-8.1 - g/dL * A LBUMIN 4.2 3.6-5.1 - g/dL * G LOBULIN 3.1 1.9-3.7 - g/dL (calc ) * A LBUMIN/GLOBULIN RATIO 1.4 1.0-2.5 - (calc) * B ILIRUBIN, TOTAL 1.8 H 0.2-1.2 - mg/dL * A LKALINE PHOSPHATASE 114 35-144 - U/L * A ST 90 H 10-35 - U/L * A LT 112 H 9-46 - U/L * E GFR 93 > OR = 60 - mL/min/1 .73m2 * Dilcia Aden 06/13/2025 12: 11:20 PM EDT > Dilcia Lind 06/13/2025 01:01:50 PM EDT > pt informed ?LAB: CBC (INCLUDES DIFF/PLT) (6399) (Collection Date & Time - 06/11/2025 11:41 AM)* Value Reference Range W TAYA BLOOD CELL COUNT 5.0 3.8-10.8 - Thousan d/uL * R ED BLOOD CELL COUNT 4.42 4.20-5.80 - Million/ uL * H EMOGLOBIN 13.8 13.2-17.1 - g/dL * H EMATOCRIT 39.4 38.5-50.0 - % * M CV 89.1 80.0-100.0 - fL * M CH 31.2 27.0-33.0 - pg * M CHC 35.0 32.0-36.0 - g/dL * R DW 12.6 11.0-15.0 - % * P LATELET COUNT 183 140-400 - Thousand/u L * N EUTROPHILS 72.3 - % * A BSOLUTE NEUTROPHILS 3615 7998-6366 - cells/uL * L YMPHOCYTES 16.5 - % * A BSOLUTE LYMPHOCYTES 825 L 850-3900 - cells/uL * M ONOCYTES 10.0 - % * A BSOLUTE MONOCYTES 500 200-950 - cells/uL * E OSINOPHILS 0.4 - % * A BSOLUTE EOSINOPHILS 20 15-500 - cells/uL * B ASOPHILS 0.8 - % * A BSOLUTE BASOPHILS 40 0-200 - cells/uL * M PV 9.8 7.5-12.5 - fL * Dilcia Aden 06/13/2025 12: 11:20 PM EDT > Dilcia Lind 06/13/2025 01:01:50 PM EDT > pt informed ?LAB: HEMOGLOBIN A1c (496) (Collection Date & Time - 06/11/2025 11:41 AM)* Value Reference Range H EMOGLOBIN A1c 5.3 <5.7 - % * Dilcia Aden 06/13/2025 12: 11:20 PM EDT > lm Dilcia Aden 06/13/2025 01:01:50 PM EDT > pt informed ?LAB: PSA, TOTAL (6588) (Collection Date & Time - 06/11/2025 11:41 AM)* Value Reference Range P SA, TOTAL 0.51 < OR = 4.00 - ng/mL * Dilcia Aden 06/13/2025 12: 11:20 PM EDT > lm Dilcia Aden 06/13/2025 01:01:50 PM EDT > pt informed Notes: continue flomax, urology following as well??6.?Other obstructive and reflux uropathy?LAB: LIPID PANEL, STANDARD (7600) (Collection Date & Time - 06/11/2025 11:41 AM)* Value Reference Range T RIGLYCERIDES 200 H <150 - mg/dL * C HOLESTEROL, TOTAL 96 <200 - mg/dL * H DL CHOLESTEROL 29 L > OR = 40 - mg/dL * L DL-CHOLESTEROL 40 - mg/dL (calc) * C HOL/HDLC RATIO 3.3 <5.0 - (calc) * N ON HDL CHOLESTEROL 67 <130 - mg/dL (calc) * Dilcia Aden 06/13/2025 12: 11:20 PM EDT > Dilcia Aden 06/13/2025 01:01:50 PM EDT > pt informed ?LAB: COMPREHENSIVE METABOLIC PANEL (97741) (Collection Date & Time - 06/11/2025 11:41 AM)* Value Reference Range G LUCOSE 92 65-99 - mg/dL * U FRANCHESKA NITROGEN (BUN) 14 7-25 - mg/dL * C REATININE 0.79 0.70-1.28 - mg/dL * B UN/CREATININE RATIO SEE NOTE: 6-22 - (calc) * S ODIUM 137 135-146 - mmol/L * P OTASSIUM 3.4 L 3.5-5.3 - mmol/L * C HLORIDE 98 98-110 - mmol/L * C ARBON DIOXIDE 28 20-32 - mmol/L * C ALCIUM 8.9 8.6-10.3 - mg/dL * P ROTEIN, TOTAL 7.3 6.1-8.1 - g/dL * A LBUMIN 4.2 3.6-5.1 - g/dL * G LOBULIN 3.1 1.9-3.7 - g/dL (calc ) * A LBUMIN/GLOBULIN RATIO 1.4 1.0-2.5 - (calc) * B ILIRUBIN, TOTAL 1.8 H 0.2-1.2 - mg/dL * A LKALINE PHOSPHATASE 114 35-144 - U/L * A ST 90 H 10-35 - U/L * A LT 112 H 9-46 - U/L * E GFR 93 > OR = 60 - mL/min/1 .73m2 * Dilcia Aden 06/13/2025 12: 11:20 PM EDT > lm Dilcia Aden 06/13/2025 01:01:50 PM EDT > pt informed ?LAB: CBC (INCLUDES DIFF/PLT) (6399) (Collection Date & Time - 06/11/2025 11:41 AM)* Value Reference Range W TAYA BLOOD CELL COUNT 5.0 3.8-10.8 - [place] d/uL * R ED BLOOD CELL COUNT 4.42 4.20-5.80 - Million/ uL * H EMOGLOBIN 13.8 13.2-17.1 - g/dL * H EMATOCRIT 39.4 38.5-50.0 - % * M CV 89.1 80.0-100.0 - fL * M CH 31.2 27.0-33.0 - pg * M CHC 35.0 32.0-36.0 - g/dL * R DW 12.6 11.0-15.0 - % * P LATELET COUNT 183 140-400 - Thousand/u L * N EUTROPHILS 72.3 - % * A BSOLUTE NEUTROPHILS 3615 6915-6398 - cells/uL * L YMPHOCYTES 16.5 - % * A BSOLUTE LYMPHOCYTES 825 L 850-3900 - cells/uL * M ONOCYTES 10.0 - % * A BSOLUTE MONOCYTES 500 200-950 - cells/uL * E OSINOPHILS 0.4 - % * A BSOLUTE EOSINOPHILS 20 15-500 - cells/uL * B ASOPHILS 0.8 - % * A BSOLUTE BASOPHILS 40 0-200 - cells/uL * M PV 9.8 7.5-12.5 - fL * Dilcia Aden 06/13/2025 12: 11:20 PM EDT > lm Dilcia Aden 06/13/2025 01:01:50 PM EDT > pt informed ?LAB: HEMOGLOBIN A1c (496) (Collection Date & Time - 06/11/2025 11:41 AM)* Value Reference Range H EMOGLOBIN A1c 5.3 <5.7 - % * Dilcia Aden 06/13/2025 12: 11:20 PM EDT > Dilcia Lind 06/13/2025 01:01:50 PM EDT > pt informed ?LAB: PSA, TOTAL (5363) (Collection Date & Time - 06/11/2025 11:41 AM)* Value Reference Range P SA, TOTAL 0.51 < OR = 4.00 - ng/mL * Dilcia Aden 06/13/2025 12: 11:20 PM EDT > Dilcia Lind 06/13/2025 01:01:50 PM EDT > pt informed 7.?Hypertension, essential?LAB: LIPID PANEL, STANDARD (6500) (Collection Date & Time - 06/11/2025 11:41 AM)* Value Reference Range T RIGLYCERIDES 200 H <150 - mg/dL * C HOLESTEROL, TOTAL 96 <200 - mg/dL * H DL CHOLESTEROL 29 L > OR = 40 - mg/dL * L DL-CHOLESTEROL 40 - mg/dL (calc) * C HOL/HDLC RATIO 3.3 <5.0 - (calc) * N ON HDL CHOLESTEROL 67 <130 - mg/dL (calc) * Dilcia Aden 06/13/2025 12: 11:20 PM EDT > Dilcia Lind 06/13/2025 01:01:50 PM EDT > pt informed ?LAB: COMPREHENSIVE METABOLIC PANEL (31716) (Collection Date & Time - 06/11/2025 11:41 AM)* Value Reference Range G LUCOSE 92 65-99 - mg/dL * U FRANCHESKA NITROGEN (BUN) 14 7-25 - mg/dL * C REATININE 0.79 0.70-1.28 - mg/dL * B UN/CREATININE RATIO SEE NOTE: 622 - (calc) * S ODIUM 137 135-146 - mmol/L * P OTASSIUM 3.4 L 3.5-5.3 - mmol/L * C HLORIDE 98 98-110 - mmol/L * C ARBON DIOXIDE 28 20-32 - mmol/L * C ALCIUM 8.9 8.6-10.3 - mg/dL * P ROTEIN, TOTAL 7.3 6.1-8.1 - g/dL * A LBUMIN 4.2 3.6-5.1 - g/dL * G LOBULIN 3.1 1.9-3.7 - g/dL (calc ) * A LBUMIN/GLOBULIN RATIO 1.4 1.0-2.5 - (calc) * B ILIRUBIN, TOTAL 1.8 H 0.2-1.2 - mg/dL * A LKALINE PHOSPHATASE 114 35-144 - U/L * A ST 90 H 10-35 - U/L * A LT 112 H 9-46 - U/L * E GFR 93 > OR = 60 - mL/min/1 .73m2 * Dilcia Aden 06/13/2025 12: 11:20 PM EDT > lm Dilcia Aden 06/13/2025 01:01:50 PM EDT > pt informed ?LAB: CBC (INCLUDES DIFF/PLT) (8699) (Collection Date & Time - 06/11/2025 11:41 AM)* Value Reference Range W TAYA BLOOD CELL COUNT 5.0 3.8-10.8 - [place] d/uL * R ED BLOOD CELL COUNT 4.42 4.20-5.80 - Million/ uL * H EMOGLOBIN 13.8 13.2-17.1 - g/dL * H EMATOCRIT 39.4 38.5-50.0 - % * M CV 89.1 80.0-100.0 - fL * M CH 31.2 27.0-33.0 - pg * M CHC 35.0 32.0-36.0 - g/dL * R DW 12.6 11.0-15.0 - % * P LATELET COUNT 183 140-400 - Thousand/u L * N EUTROPHILS 72.3 - % * A BSOLUTE NEUTROPHILS 3615 7557-1735 - cells/uL * L YMPHOCYTES 16.5 - % * A BSOLUTE LYMPHOCYTES 825 L 850-3900 - cells/uL * M ONOCYTES 10.0 - % * A BSOLUTE MONOCYTES 500 200-950 - cells/uL * E OSINOPHILS 0.4 - % * A BSOLUTE EOSINOPHILS 20 15-500 - cells/uL * B ASOPHILS 0.8 - % * A BSOLUTE BASOPHILS 40 0-200 - cells/uL * M PV 9.8 7.5-12.5 - fL * Dilcia Aden 06/13/2025 12: 11:20 PM EDT > Dilcia Lind 06/13/2025 01:01:50 PM EDT > pt informed ?LAB: HEMOGLOBIN A1c (496) (Collection Date & Time - 06/11/2025 11:41 AM)* Value Reference Range H EMOGLOBIN A1c 5.3 <5.7 - % * Dilcia Aden 06/13/2025 12: 11:20 PM EDT > Dilcia Lind 06/13/2025 01:01:50 PM EDT > pt informed ?LAB: PSA, TOTAL (5363) (Collection Date & Time - 06/11/2025 11:41 AM)* Value Reference Range P SA, TOTAL 0.51 < OR = 4.00 - ng/mL * Dilcia Aden 06/13/2025 12: 11:20 PM EDT > Dilcia Lind 06/13/2025 01:01:50 PM EDT > pt informed Notes: well controlled on current regimen??8.?Pure hypercholesterolemia?LAB: LIPID PANEL, STANDARD (7600) (Collection Date & Time - 06/11/2025 11:41 AM)* Value Reference Range T RIGLYCERIDES 200 H <150 - mg/dL * C HOLESTEROL, TOTAL 96 <200 - mg/dL * H DL CHOLESTEROL 29 L > OR = 40 - mg/dL * L DL-CHOLESTEROL 40 - mg/dL (calc) * C HOL/HDLC RATIO 3.3 <5.0 - (calc) * N ON HDL CHOLESTEROL 67 <130 - mg/dL (calc) * Dilcia Aden 06/13/2025 12: 11:20 PM EDT > Dilcia Lind 06/13/2025 01:01:50 PM EDT > pt informed ?LAB: COMPREHENSIVE METABOLIC PANEL (52569) (Collection Date & Time - 06/11/2025 11:41 AM)* Value Reference Range G LUCOSE 92 65-99 - mg/dL * U FRANCHESKA NITROGEN (BUN) 14 7-25 - mg/dL * C REATININE 0.79 0.70-1.28 - mg/dL * B UN/CREATININE RATIO SEE NOTE: 02-18 - (calc) * S ODIUM 137 135-146 - mmol/L * P OTASSIUM 3.4 L 3.5-5.3 - mmol/L * C HLORIDE 98 98-110 - mmol/L * C ARBON DIOXIDE 28 20-32 - mmol/L * C ALCIUM 8.9 8.6-10.3 - mg/dL * P ROTEIN, TOTAL 7.3 6.1-8.1 - g/dL * A LBUMIN 4.2 3.6-5.1 - g/dL * G LOBULIN 3.1 1.9-3.7 - g/dL (calc ) * A LBUMIN/GLOBULIN RATIO 1.4 1.0-2.5 - (calc) * B ILIRUBIN, TOTAL 1.8 H 0.2-1.2 - mg/dL * A LKALINE PHOSPHATASE 114 35-144 - U/L * A ST 90 H 10-35 - U/L * A LT 112 H 9-46 - U/L * E GFR 93 > OR = 60 - mL/min/1 .73m2 * Dilcia Aden 06/13/2025 12: 11:20 PM EDT > lm Dilcia Aden 06/13/2025 01:01:50 PM EDT > pt informed ?LAB: CBC (INCLUDES DIFF/PLT) (6126) (Collection Date & Time - 06/11/2025 11:41 AM)* Value Reference Range W TAYA BLOOD CELL COUNT 5.0 3.8-10.8 - [place] d/uL * R ED BLOOD CELL COUNT 4.42 4.20-5.80 - Million/ uL * H EMOGLOBIN 13.8 13.2-17.1 - g/dL * H EMATOCRIT 39.4 38.5-50.0 - % * M CV 89.1 80.0-100.0 - fL * M CH 31.2 27.0-33.0 - pg * M CHC 35.0 32.0-36.0 - g/dL * R DW 12.6 11.0-15.0 - % * P LATELET COUNT 183 140-400 - Thousand/u L * N EUTROPHILS 72.3 - % * A BSOLUTE NEUTROPHILS 3615 6251-5588 - cells/uL * L YMPHOCYTES 16.5 - % * A BSOLUTE LYMPHOCYTES 825 L 850-3900 - cells/uL * M ONOCYTES 10.0 - % * A BSOLUTE MONOCYTES 500 200-950 - cells/uL * E OSINOPHILS 0.4 - % * A BSOLUTE EOSINOPHILS 20 15-500 - cells/uL * B ASOPHILS 0.8 - % * A BSOLUTE BASOPHILS 40 0-200 - cells/uL * M PV 9.8 7.5-12.5 - fL * Dilcia Aden 06/13/2025 12: 11:20 PM EDT > Dilcia Lind 06/13/2025 01:01:50 PM EDT > pt informed ?LAB: HEMOGLOBIN A1c (496) (Collection Date & Time - 06/11/2025 11:41 AM)* Value Reference Range H EMOGLOBIN A1c 5.3 <5.7 - % * Dilcia Aden 06/13/2025 12: 11:20 PM EDT > Dilcia Lind 06/13/2025 01:01:50 PM EDT > pt informed ?LAB: PSA, TOTAL (5363) (Collection Date & Time - 06/11/2025 11:41 AM)* Value Reference Range P SA, TOTAL 0.51 < OR = 4.00 - ng/mL * Dilcia Aden 06/13/2025 12: 11:20 PM EDT > Dilcia Lind 06/13/2025 01:01:50 PM EDT > pt informed Notes: continue statin therapy??9.?Major depressive disorder with single episode, in full remission? Clinical Notes: improved on sertraline??10.?Lower extremity edema? Notes: stable on lasix and with compression??11.?Prediabetes?LAB: LIPID PANEL, STANDARD (7600) (Collection Date & Time - 06/11/2025 11:41 AM)* Value Reference Range T RIGLYCERIDES 200 H <150 - mg/dL * C HOLESTEROL, TOTAL 96 <200 - mg/dL * H DL CHOLESTEROL 29 L > OR = 40 - mg/dL * L DL-CHOLESTEROL 40 - mg/dL (calc) * C HOL/HDLC RATIO 3.3 <5.0 - (calc) * N ON HDL CHOLESTEROL 67 <130 - mg/dL (calc) * Dilcia Aden 06/13/2025 12: 11:20 PM EDT > Dilcia Aden 06/13/2025 01:01:50 PM EDT > pt informed ?LAB: COMPREHENSIVE METABOLIC PANEL (74962) (Collection Date & Time - 06/11/2025 11:41 AM)* Value Reference Range G LUCOSE 92 65-99 - mg/dL * U FRANCHESKA NITROGEN (BUN) 14 7-25 - mg/dL * C REATININE 0.79 0.70-1.28 - mg/dL * B UN/CREATININE RATIO SEE NOTE: 6-22 - (calc) * S ODIUM 137 135-146 - mmol/L * P OTASSIUM 3.4 L 3.5-5.3 - mmol/L * C HLORIDE 98 98-110 - mmol/L * C ARBON DIOXIDE 28 20-32 - mmol/L * C ALCIUM 8.9 8.6-10.3 - mg/dL * P ROTEIN, TOTAL 7.3 6.1-8.1 - g/dL * A LBUMIN 4.2 3.6-5.1 - g/dL * G LOBULIN 3.1 1.9-3.7 - g/dL (calc ) * A LBUMIN/GLOBULIN RATIO 1.4 1.0-2.5 - (calc) * B ILIRUBIN, TOTAL 1.8 H 0.2-1.2 - mg/dL * A LKALINE PHOSPHATASE 114 35-144 - U/L * A ST 90 H 10-35 - U/L * A LT 112 H 9-46 - U/L * E GFR 93 > OR = 60 - mL/min/1 .73m2 * Dilcia Aden 06/13/2025 12: 11:20 PM EDT > Dilcia Aden 06/13/2025 01:01:50 PM EDT > pt informed ?LAB: CBC (INCLUDES DIFF/PLT) (6399) (Collection Date & Time - 06/11/2025 11:41 AM)* Value Reference Range W TAYA BLOOD CELL COUNT 5.0 3.8-10.8 - [place] d/uL * R ED BLOOD CELL COUNT 4.42 4.20-5.80 - Million/ uL * H EMOGLOBIN 13.8 13.2-17.1 - g/dL * H EMATOCRIT 39.4 38.5-50.0 - % * M CV 89.1 80.0-100.0 - fL * M CH 31.2 27.0-33.0 - pg * M CHC 35.0 32.0-36.0 - g/dL * R DW 12.6 11.0-15.0 - % * P LATELET COUNT 183 140-400 - Thousand/u L * N EUTROPHILS 72.3 - % * A BSOLUTE NEUTROPHILS 3615 0094-9753 - cells/uL * L YMPHOCYTES 16.5 - % * A BSOLUTE LYMPHOCYTES 825 L 850-3900 - cells/uL * M ONOCYTES 10.0 - % * A BSOLUTE MONOCYTES 500 200-950 - cells/uL * E OSINOPHILS 0.4 - % * A BSOLUTE EOSINOPHILS 20 15-500 - cells/uL * B ASOPHILS 0.8 - % * A BSOLUTE BASOPHILS 40 0-200 - cells/uL * M PV 9.8 7.5-12.5 - fL * Dilcia Aden 06/13/2025 12: 11:20 PM EDT > Dilcia Lind 06/13/2025 01:01:50 PM EDT > pt informed ?LAB: HEMOGLOBIN A1c (496) (Collection Date & Time - 06/11/2025 11:41 AM)* Value Reference Range H EMOGLOBIN A1c 5.3 <5.7 - % * Dilcia Aden 06/13/2025 12: 11:20 PM EDT > Dilcia Lind 06/13/2025 01:01:50 PM EDT > pt informed ?LAB: PSA, TOTAL (1563) (Collection Date & Time - 06/11/2025 11:41 AM)* Value Reference Range P SA, TOTAL 0.51 < OR = 4.00 - ng/mL * Dilcia Aden 06/13/2025 12: 11:20 PM EDT > lm Dilcia Aden 06/13/2025 01:01:50 PM EDT > pt informed Notes: dietary changes, regular activity and monitoring??12.?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 Clinical Notes: improved overall with therapies, weight loss, celebrex. monitor??13.?Pain, joint, knee, right? Clinical Notes: would like to consult with orthopedics at [facility] to review options? Referral To:Orthopedic Surgery ?Reason:[facility] Ortho for right knee and left shoulder pain, okay to order xrays prior if needed 14.?Pain, joint, shoulder, left? Clinical Notes: would like to consult with orthopedics at [facility] to review options??15.?Moderate obstructive sleep apnea? Clinical Notes: CPAP not well tolerated. Hopefully will improve with additional weight loss, Zepbound??16.?Obesity (BMI 30-39.9)? Clinical Notes: complicates all aspects of care but improved markedly on Zepbound?? * Labs: * L ab: LYME DISEASE ANTIBODIES (IGG,IGM), IMMUNOBLOT (8593) (Collection Date & Time - 06/11/2025 11:41 AM) Value Reference Range L YME DISEASE AB(IGG),BLOT NEGATIVE NEGATIVE - * 1 8 KD (IGG) BAND NON-REACTIVE - * 2 3 KD (IGG) BAND NON-REACTIVE - * 2 8 KD (IGG) BAND NON-REACTIVE - * 3 0 KD (IGG) BAND NON-REACTIVE - * 4 5 KD (IGG) BAND NON-REACTIVE - * 5 8 KD (IGG) BAND NON-REACTIVE - * 6 6 KD (IGG) BAND NON-REACTIVE - * 9 3 KD (IGG) BAND NON-REACTIVE - * L YME DISEASE AB(IGM),BLOT NEGATIVE NEGATIVE - * 4 1 KD (IGM) BAND REACTIVE A - * 3 9 KD (IGG) BAND NON-REACTIVE - * 4 1 KD (IGG) BAND REACTIVE A - * 2 3 KD (IGM) BAND NON-REACTIVE - * 3 9 KD (IGM) BAND NON-REACTIVE - * [employer], support 05/30 03:40:15 : This order was created by the Interface. Dilcia Aden 06/13/2025 12:11:20 PM EDT > lm Dilcia Aden 06/13/2025 01:01:50 PM EDT > pt informedThis lab was reviewed by Torri Ruiz on 06/25/2025 at 11:38 AM EDT ?Lab: TEST AUTHORIZATION (Collection Date & Time - 06/11/2025 11:41 AM)* Value Reference Range T EST NAME: LYME DISEASE ANTIBODIES - * T EST CODE: [id number] - * C LIETYRA CONTACT: CRISTIANO DUMONT - * [employer], support 05/30 03:40:16 : This order was created by the Interface. * Procedure Codes: 8 7636 RAPID COVID/FLU A & B COMBO, Modifiers: QW , G0439 ANNUAL WELLNESS VST; PPS SUBSQT VST, 1123F ADVANCED DIRECTIVE - HAS A LIVING WILL, 3017F COLORECTAL CA SCREEN DOC REV, G8417 BMI >=30 CALCUATE W/FOLLOWUP, G8510 NEGATIVE SCREENING F/U NOT REQUIRED, G9903 Pt scrn tbco id as non user, G8752 Most recent systolic blood pressure < 140mmhg, G8754 Most recent diastolic blood pressure < 90mmhg, G9744 PATIENT NOT ELIG D/T ACTIVE DX HTN, [address] HEALTH RISK [id number] * Preventive Medicine: Counseling: L iving will H as living will. LOPEZ Screening: F alls: Future screening for fall risks H ave you had two or more falls in the past year? N o, H ave you had any falls with injury in the past year? N o. Depression Screening: P HQ 2 F eeling down depressed or hopeless N o some loss of interest. Immunizations: i nfluenza H ave you had a flu shot since the most recent April 30 ? Y es. P neumonia vaccine: Status for Older Adults A re you up-to-date on your pneumonia vaccine? yes or no y es. T dap U TD. S hingrix U TD. C OVID C ompleted series. R SV vaccination n ot documented, reminder provided to check at [facility]. Screening / Special Tests: C olonoscopy 2 022. P SA + symptoms, PSA ordered. L marilyn Cancer Screening N ot indicated - nonsmoker. * Follow Up: 6 Months * * Sign off status: Completed true * Provider: LUKE Luther Date: Generated for Kurtisi ng/Davin/eTransmitting on: 09/11/2024 03:03 PM EST History and Physical Notes * HPI (History of Present Illness) Category Sub-Category Detail Notes Category Not es gen Presents today for annual wellness exam. Due for monitoring labs Acutely, he reports fatigue, body aches, chills, occcasional cough above baseline, night sweats for 1-2 weeks. Worse in the past couple of days. Denies known exposure to illness, several ticks bites over the summer months but no rashes. HTN - At goal. Tolerating meds. No side effect. Continue current regimen. - no CP, SOA, palpitations Depression/Anxiety -on current regimen with Zoloft and trazodone for sleep. Back pain has improved some overall, mobility improved marginally since losing weight. He does report worsening right knee pain and left shoulder pain. 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 Denies new trauma. WRT lumbar DDD, he did see specialist at [place], suggested conservative therapy but if progression/failure, fusion recommended Prior to the past 2 weeks his chronic congestion and allergy symptoms had been stable on current regimen. BPH symptoms stable, following with [facility] CEM - noted to have moderate CEM on sleep study 2023. Taking Zepbound as noted, has tolerated very well with significant weight loss and improvement in symptoms overall Examination Category Sub-Category Detail Notes Category Not es General Examination HEENT: pharynx and tonsils normal, TM's normal, mild nasal congestion Heart: RRR Lungs: LCTAB, No wheezes, c rackles or rhonchi, Good air movement, Abdomen: Soft, NTND, BSNA, No organomegaly or peritoneal signs. Extremities: trace edema BLE Neurologic Exam: Alert and oriented x 3 Oral cavity: Moist membranes Peripheral pulses: normal (2+) bilatera lly neck supple,, no thyromeg amari,, no lymphadenopathy, General [place] and [place] t[place], NAD on RA, Psych Normal Mood/Affect Consultation Request Notes Referral Date Referring Provider Referred Provider Not david 06/11/2025 Torri Ruiz , [facility] Ortho fo r right knee and left shoulder pain, okay to order xrays prior if needed
--- OUTSIDE RECORDS SUMMARY | 2025-06-12 04:44 | XMS_ITS ---
Author Organization [facility] Address [address] [facility] [address] [place] [address] Care Team Providers Care Gear Coding Machine Operator Name Role Phone Felicity Jay Primary Care Provider [phone] FELICITY JAY Unavailable Unavaila ble REASON FOR VISIT x ray orders Encounters Encounter Location Date Provider Diagnosis [facility] [address] [facility] [address] [place], [place] [address] 06/12/2025 Felicity Jay Pain, joint, knee, right M25.561 and Shoulder pain, left M25.512 Assessments Encounter Date Diagnosis (ICD Code) Assessment Notes Treatment Notes Treatment Clinical Notes Section Notes 06/12/2025 Pain, joint, knee, right (ICD-10 - M25.561) 06/12/2025 Shoulder pain, left (ICD-10 - M25.512) Plan Of Treatment Pending Test Test Name Order Date X ray : Knee, Right 06/12/2025 X ray : Shoulder, Left 06/12/2025 Next Appt Details Provider Name:Felicity Farida Fung ce, 07/16/2025 10:15:00 AM, [address], [place], [address], Progress Notes * Shemar KAUR RDOB:[birth year] (75 yo M)Acc No.[id number]:06/12/2025 Patient: Shemar HALL :1950 A ge:75 Y S ex:Male Address:[facility] [address] [place], [address] Subjective: * Chief Complaints: * X ray orders * Medical History: * Surgical History: * Hospitalization/Major Diagno stic Procedure: * Medications: Objective: * Vitals: * Physical Examination: Assessment: * Assessment: 1. P ain, joint, knee, right - M25.561 2 . S houlder pain, left - M25.512? Plan: * Treatment: 2.?Shoulder pain, left?Imaging: X ray : Shoulder, Left* * Procedure Codes: * true * Date: Generated for Mila rodriguez/Davin/Kathryn on: 09/11/2024 03:04 PM EST
--- OUTSIDE RECORDS SUMMARY | 2025-06-12 05:19 | XMS_ITS ---
Author Organization [facility] Address [address] [facility] [address] [place] [address] Care Team Providers Care Tool Crib Lead Name Role Phone Misty Felicity Primary Care Provider FELICITY JAY Unavailable Unavaila ble REASON FOR VISIT not feeling well- wonders if tick bites have anything to do with it Encounters Encounter Location Date Provider Diagnosis [facility] [address] [facility] [address] [place] [address] 06/12/2025 Felicity Jay Elevated liver enzymes R74.8 Assessments Encounter Date Diagnosis (ICD Code) Assessment Notes Treatment Notes Treatment Clinical Notes Section Notes 06/12/2025 Elevated liver enzymes (ICD-10 - R74.8) Plan Of Treatment Pending Test Test Name Order Date Ultrasound : Right Upper Quadrant 2024 Next Appt Details Provider Name:Felicity Fung ce, 07/16/2025 10:15:00 AM, [address] [facility], [address], [place], [address], Progress Notes * Joe KAUR RDOB:[birth year] (75 yo M)Acc No.[id number]:06/12/2025 Patient: Joe HALL :1950 A ge:75 Y S ex:Male Address:[address] [place], [address] Subjective: * Chief Complaints: * N ot feeling well- wonders if tick bites have anything to do with it * Medical History: * Surgical History: * Hospitalization/Major Diagno stic Procedure: * Medications: Objective: * Vitals: * Physical Examination: Assessment: * Assessment: 1. E levated liver enzymes - R74.8 Plan: * Treatment: * Procedure Codes: * true * Date: Generated for Mila rodriguez/Davin/Belkisitting on: 09/11/2024 03:03 PM EST
--- OUTSIDE RECORDS SUMMARY | 2025-06-15 10:32 | XMS_ITS ---
Author Organization [facility] Address [address] [facility] [address] [place] [address] Care Team Providers Care Tests Superintendent Name Role Phone Torri Jay Primary Care Provider TORRI JAY Unavailable Unavaila ble Results Component Value Reference Range Notes X ray : Chest Reviewed date:06/19/2025 01:03:51 PM Interpretation: Performing Lab: Notes/Report: Encounters Encounter Location Date Provider Diagnosis [facility] [address] [facility] [address] [place], [place] [address] 06/15/2025 Torri Misty Body aches R52 and Acute cough R05.1 Assessments Encounter Date Diagnosis (ICD Code) Assessment Notes Treatment Notes Treatment Clinical Notes Section Notes 06/15/2025 Body aches (ICD-10 - R52) 06/15/2025 Acute cough (ICD-10 - R05.1) Plan Of Treatment Pending Test Test Name Order Date M-MINIRP 06/15/2025 Next Appt Details Provider Name:Torri Iqbal Antonieta ce, 07/16/2025 10:15:00 AM, [address] [facility], [address], [place], [address], Progress Notes * Shemar KAUR RDOB:[birth year] (75 yo M)Acc No.[id number]:06/15/2025 Patient: Shemar HALL :1950 A ge:75 Y S ex:Male Address:[facility] [address] [place], [address] Subjective: * Chief Complaints: * * Medical History: * Surgical History: * Hospitalization/Major Diagno stic Procedure: * Medications: Objective: * Vitals: * Physical Examination: Assessment: * Assessment: 1. B dale aches - R52 (Primary) 2 . A cute cough - R05.1 Plan: * Treatment: 2.?Acute cough?LAB: M-MINIRP ?Imaging: X ray : Chest* * Procedure Codes: * true * Date: Generated for Mila rodriguez/Davin/Nguyensmfelice on: 09/11/2024 03:03 PM EST
--- OUTSIDE RECORDS SUMMARY | 2025-06-25 05:45 | XMS_ITS ---
Author Organization [facility] Address [address] [place] [address] Care Team Providers Care Refractory Manager Name Role Phone Torri Jay Primary Care Provider TORRI JAY Unavailable Unavaila ble Allergies Allergen (clinical drug ingredient) Drug/Non Drug Allergy documented on EMR Reaction Allergy Type Onset Date Status OYSTERS (uncoded) terrible stoma ch pains Allergy Active Results Component Value Reference Range Notes COMPREHENSIVE METABOLIC PANE L (28509) Reviewed date:06/26/2025 02:49:39 PM Interpretation: Performing Lab:CB, [facility] [id number], [id number] Ajit Delgado Notes/Report: NON-FASTING; NON-FASTING; NON-FASTING; NON-FASTING GLUCOSE 77 65-99 mg/dL Fasting reference interval UREA NITROGEN (BUN) 12 7-25 mg/dL CREATININE 0.80 0.70-1.28 mg/dL EGFR 92 > OR = 60 mL/min/1.73m2 BUN/CREATININE RATIO SEE NOTE: 6-22 (calc) Not Reported: BUN and Creatinine are within reference range. SODIUM 141 135-146 mmol/L POTASSIUM 4.0 3.5-5.3 mmol/L CHLORIDE 102 98-110 mmol/L CARBON DIOXIDE 29 20-32 mmol/L CALCIUM 9.2 8.6-10.3 mg/dL PROTEIN, TOTAL 7.2 6.1-8.1 g/dL ALBUMIN 4.0 3.6-5.1 g/dL GLOBULIN 3.2 1.9-3.7 g/dL (calc) ALBUMIN/GLOBULIN RATIO 1.3 1.0-2.5 (calc) BILIRUBIN, TOTAL 0.9 0.2-1.2 mg/dL ALKALINE PHOSPHATASE 112 35-144 U/L AST 37 10-35 U/L ALT 42 9-46 U/L CBC (INCLUDES DIFF/PLT) (639 9) Reviewed date:06/26/2025 02:49:39 PM Interpretation: Performing Lab:VIRGILIO, [facility] [id number] [facility] [employer], [place]GP[address] Ajit Delgado Notes/Report: NON-FASTING; NON-FASTING; NON-FASTING; NON-FASTING WHITE BLOOD CELL COUNT 6.3 3.8-10.8 Thousand/ uL RED BLOOD CELL COUNT 4.09 4.20-5.80 Million/uL HEMOGLOBIN 12.8 13.2-17.1 g/dL HEMATOCRIT 37.0 38.5-50.0 % MCV 90.5 80.0-100.0 fL MCH 31.3 27.0-33.0 pg MCHC 34.6 32.0-36.0 g/dL For adults, a slight decrease in the calculated MCHC value (in the range of 30 to 32 g/dL) is most likely not clinically significant; however, it should be interpreted with caution in correlation with other red cell parameters and the patient's clinical condition. RDW 13.1 11.0-15.0 % PLATELET COUNT 223 140-400 Thousand/uL MPV 9.9 7.5-12.5 fL ABSOLUTE NEUTROPHILS 2029 3994-7970 cells/uL ABSOLUTE LYMPHOCYTES 3377 850-3900 cells/uL ABSOLUTE MONOCYTES 756 200-950 cells/uL ABSOLUTE EOSINOPHILS 82 15-500 cells/uL ABSOLUTE BASOPHILS 57 0-200 cells/uL NEUTROPHILS 32.2 LYMPHOCYTES 53.6 MONOCYTES 12.0 EOSINOPHILS 1.3 BASOPHILS 0.9 COMMENT(S) automated results. Review of peripheral smear confirms LIPASE (606) Reviewed date:06/26/2025 02:49:39 PM Interpretation: Performing Lab:VIRGILIO, [facility] [id number], [employer]IcqqRI[address] Ajit Delgado Notes/Report: NON-FASTING; NON-FASTING; NON-FASTING; NON-FASTING LIPASE 49 7-60 U/L AMYLASE (243) Reviewed date:06/26/2025 02:49:39 PM Interpretation: Performing Lab:CB, [facility] [id number] [facility], [place] CarvalhoWvvmRP[address] Ajit Barroso Danny Notes/Report: NON-FASTING; NON-FASTING; NON-FASTING; NON-FASTING AMYLASE 42 21-101 U/L REASON FOR VISIT pneumonia FU-states that he feels about the same-still SOA and achy Medications Medication SIG (Take, Route, Frequency, Duration) Notes Start Date End Date Status Celecoxib 100 MG TAKE 1 CAPSULE BY MOUTH TWICE DAILY; Duration: 90 Active traZODone HCl 100 MG 1 tab(s) orally onc e a day (at bedtime); Duration: 90 days Active Montelukast Sodium 10 MG TAKE 1 TABLET B Y MOUTH DAILY; Duration: 90 Active Levocetirizine Dihydrochlori de 5 MG 1 tab(s) orally once a day (in the evening); Duration: 90 days Active Azelastine HCl 0.05 % 1 gtt in each affe cted eye 2 times a day; Duration: 30 days Active hydroCHLOROthiazide 25 MG TAKE 1 TABLET BY MOUTH DAILY; Duration: 90 Active Zepbound 15 MG/0.5ML 0.5 mL Subcutaneous once a week; Duration: 28 days Active Sertraline HCl 50 MG TAKE 1 TABLET BY MO UTH DAILY; Duration: 90 Active Tamsulosin HCl 0.4 MG TAKE 2 CAPSULES BY MOUTH DAILY; Duration: 30 Active Rosuvastatin Calcium 20 MG TAKE 1 TABLET BY MOUTH EVERY DAY; Duration: 90 Active Sildenafil Citrate 100 MG 1 tab(s) orall y once a day as needed; Duration: 30 days 03/26/2023 Active amLODIPine Besylate 10 MG 1 tab(s) orall y once a day; Duration: 30 days Active TUMERICK 500MG ONE TABLET PO ONCE A DAY Active Nebivolol HCl 10 MG TAKE 1 TABLET BY MARGIE TH EVERY DAY; Duration: 90 Active Fish Oil 1000 MG 1 cap(s) orally daily Active Azelastine HCl Activ e Vitamin D3 1000 UNIT as directed orally once a day; Duration: 30 day(s) Active Vitamin C 500 MG 1 tab(s) orally once a day; Duration: 30 day(s) Active Social History Tobacco Use: Social History Observation Description Date Details (start date - stop date) Never Smoker NA - NA Smoking: Question Answer Notes Are you a: nonsmoker Problems Problem Type SNOMED Code ICD Code Onset Dates Problem Status W/U Status Risk Notes Problem Fatty liver (909109785) Fatty liver (K76.0) Active confirmed Vital Signs Temperature 97.6 degrees Fahrenheit 06/25/20 25 Blood pressure systolic 112 mm Hg 06/25/20 25 Blood pressure diastolic 70 mm Hg 025 Heart Rate 96 /min 06/25/2025 Height 6 ft in 06/25/2025 Weight 224.2 lbs 06/25/2025 BMI 30.4 kg/m2 06/25/2025 Oximetry 97 06/25/2025 Encounters Encounter Location Date Provider Diagnosis [facility] [address] [place] [address] 06/25/2025 Torri Jay Pneumonia of right lower lobe due to infectious organism J18.9 ; Elevated liver enzymes R74.8 and Fatty liver K76.0 Assessments Encounter Date Diagnosis (ICD Code) Assessment Notes Treatment Notes Treatment Clinical Notes Section Notes 06/25/2025 Pneumonia of right lower lobe due to infectious organism (ICD-10 - J18.9) antibiotics complete and symptoms improving but not resolved...rec update labs as noted, encouraged increasing activity as tolerated 06/25/2025 Elevated liver enzymes (ICD-10 - R74.8) repeat today, suspect acute inflammatory response but will need additional workup if these are trending upward. discussed importance of low fat diet and alcohol moderation...GLP 1I should be helpful as well 06/25/2025 Fatty liver (ICD-10 - K76.0) Plan Of Treatment Next Appt Details Follow Up: 3 Months, Reason: Provider Name:Torri Rahmansophia ce, 07/16/2025 10:15:00 AM, [address], [address], [place], [address], Progress Notes * Joe KAUR RDOB:[birth year] (75 yo M)Acc No.[id number]:06/25/2025 Progress Notes Patient: Joe HALL Provider: LUKE Luther :1950 A ge:75 Y S ex:Male Date:06/25/2025 Address:[address] [facility], [id number] Subjective: * Chief Complaints: * 1 . pneumonia FU-states that he feels about the same-still SOA and achy. * HPI: g en: 75 yr old male presents today to FU regarding cough, shortness of breath, malaise, night sweats. Negative flu/COVID. CXR positive for early infiltrate in the right base. Lyme panel negative. Treated with PO doxycycline for 10 days which he has completed and does feel better overall. Still with some dyspnea, rare cough, malaise and night sweats improved. Appetite improved. Routine labs also indicated elevated of bilirubin, ALT and AST. US indicates fatty liver changes and layering sludge in the gallbladder. Denies abdominal symptoms. * ROS: R ESPIRATORY: See HPI Y es. C ARDIOLOGY: no C hest pain. n o P alpitations. L eg edema?yes, i mproves with compression and lasix. C ONSTITUTIONAL: See HPI Y es. W eight loss y es, i ntentional.? D ERMATOLOGY: no R dl. G ASTROENTEROLOGY: Reviewed, No Symptoms Reported: Y es. U ROLOGY: Dysuria n o. [...] yes. Travel outside [place]: no. 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 * Medications: T aking Azelastine HCl [...] TABLET BY MOUTH EVERY DAY , Taking Rosuvastatin Calcium 20 MG Tablet [...] once a day (in the evening) , Taking Celecoxib 100 MG Capsule TAKE 1 CAPSULE BY MOUTH TWICE DAILY , Taking traZODone HCl 100 MG Tablet 1 tab(s) orally once a day (at bedtime) , Discontinued Doxycycline Hyclate 100 MG Capsule 1 capsule Orally twice a day , Medication List reviewed and reconciled with the patient * Allergies: O YSTERS: terrible stomach pains. Objective: * Vitals: N urse: jl, Pain: 3, Temp: 97.6, Pulse O2: 97, RR: 20, HR: 96, BP: 112/70, Ht: 6 ft, Wt: 224.2, BMI:30.4. * Examination: G eneral Examination: General P leasant and Cooperative, NAD on RA,. Heart: R egular Rate and Rhythm, no murmur, rubs or gallops. Lungs: c oarse but clear and equal lung sounds with good air movement. Abdomen: s oft, NT/ND, BS present. Assessment: * Assessment: 1. P neumonia of right lower lobe due to infectious organism - J18.9 (Primary) 2 . E levated liver enzymes - R74.8 3 . F atty liver - K76.0 ? Plan: * Treatment: Value Reference Range G LUCOSE 77 65-99 - mg/dL * U FRANCHESKA NITROGEN (BUN) 12 7-25 - mg/dL * C REATININE 0.80 0.70-1.28 - mg/dL * B UN/CREATININE RATIO SEE NOTE: 02-18 - (calc) * S ODIUM 141 135-146 - mmol/L * P OTASSIUM 4.0 3.5-5.3 - mmol/L * C HLORIDE 102 98-110 - mmol/L * C ARBON DIOXIDE 29 20-32 - mmol/L * C ALCIUM 9.2 8.6-10.3 - mg/dL * P ROTEIN, TOTAL 7.2 6.1-8.1 - g/dL * A LBUMIN 4.0 3.6-5.1 - g/dL * G LOBULIN 3.2 1.9-3.7 - g/dL (calc ) * A LBUMIN/GLOBULIN RATIO 1.3 1.0-2.5 - (calc) * B ILIRUBIN, TOTAL 0.9 0.2-1.2 - mg/dL * A LKALINE PHOSPHATASE 112 35-144 - U/L * A ST 37 H 10-35 - U/L * A LT 42 9-46 - U/L * E GFR 92 > OR = 60 - mL/min/1 .73m2 * Dilcia Aden 06/26/2025 02: 49:28 PM EDT > pt informed ?LAB: CBC (INCLUDES DIFF/PLT) (9518) (Collection Date & Time - 06/25/2025 11:55 AM)* Value Reference Range W TAYA BLOOD CELL COUNT 6.3 3.8-10.8 - Thousan d/uL * R ED BLOOD CELL COUNT 4.09 L 4.20-5.80 - Million/ uL * H EMOGLOBIN 12.8 L 13.2-17.1 - g/dL * H EMATOCRIT 37.0 L 38.5-50.0 - % * M CV 90.5 80.0-100.0 - fL * M CH 31.3 27.0-33.0 - pg * M CHC 34.6 32.0-36.0 - g/dL * R DW 13.1 11.0-15.0 - % * P LATELET COUNT 223 140-400 - Thousand/u L * N EUTROPHILS 32.2 - % * A BSOLUTE NEUTROPHILS 9 0081-8527 - cells/uL * L YMPHOCYTES 53.6 - % * A BSOLUTE LYMPHOCYTES 3377 850-3900 - cells/uL * M ONOCYTES 12.0 - % * A BSOLUTE MONOCYTES 756 200-950 - cells/uL * E OSINOPHILS 1.3 - % * A BSOLUTE EOSINOPHILS 82 15-500 - cells/uL * B ASOPHILS 0.9 - % * A BSOLUTE BASOPHILS 57 0-200 - cells/uL * M PV 9.9 7.5-12.5 - fL * Dilcia Aden 06/26/2025 02: 49:28 PM EDT > pt informed ?LAB: LIPASE (606) (Collection Date & Time - 06/25/2025 11:55 AM)* Value Reference Range L IPASE 49 7-60 - U/L * Dilcia Aden 06/26/2025 02: 49:28 PM EDT > pt informed ?LAB: AMYLASE (243) (Collection Date & Time - 06/25/2025 11:55 AM)* Value Reference Range A MYLASE 42 21-101 - U/L * Dilcia Aden 06/26/2025 02: 49:28 PM EDT > pt informed Clinical Notes: antibiotics complete and symptoms improving but not resolved...rec update labs as noted, encouraged increasing activity as tolerated??2.?Elevated liver enzymes?LAB: COMPREHENSIVE METABOLIC PANEL (33215) (Collection Date & Time - 06/25/2025 11:55 AM)* Value Reference Range G LUCOSE 77 65-99 - mg/dL * U FRANCHESKA NITROGEN (BUN) 12 7-25 - mg/dL * C REATININE 0.80 0.70-1.28 - mg/dL * B UN/CREATININE RATIO SEE NOTE: 6-22 - (calc) * S ODIUM 141 135-146 - mmol/L * P OTASSIUM 4.0 3.5-5.3 - mmol/L * C HLORIDE 102 98-110 - mmol/L * C ARBON DIOXIDE 29 20-32 - mmol/L * C ALCIUM 9.2 8.6-10.3 - mg/dL * P ROTEIN, TOTAL 7.2 6.1-8.1 - g/dL * A LBUMIN 4.0 3.6-5.1 - g/dL * G LOBULIN 3.2 1.9-3.7 - g/dL (calc ) * A LBUMIN/GLOBULIN RATIO 1.3 1.0-2.5 - (calc) * B ILIRUBIN, TOTAL 0.9 0.2-1.2 - mg/dL * A LKALINE PHOSPHATASE 112 35-144 - U/L * A ST 37 H 10-35 - U/L * A LT 42 9-46 - U/L * E GFR 92 > OR = 60 - mL/min/1 .73m2 * Dilcia Aden 06/26/2025 02: 49:28 PM EDT > pt informed ?LAB: CBC (INCLUDES DIFF/PLT) (8247) (Collection Date & Time - 06/25/2025 11:55 AM)* Value Reference Range W TAYA BLOOD CELL COUNT 6.3 3.8-10.8 - Thousan d/uL * R ED BLOOD CELL COUNT 4.09 L 4.20-5.80 - Million/ uL * H EMOGLOBIN 12.8 L 13.2-17.1 - g/dL * H EMATOCRIT 37.0 L 38.5-50.0 - % * M CV 90.5 80.0-100.0 - fL * M CH 31.3 27.0-33.0 - pg * M CHC 34.6 32.0-36.0 - g/dL * R DW 13.1 11.0-15.0 - % * P LATELET COUNT 223 140-400 - Thousand/u L * N EUTROPHILS 32.2 - % * A BSOLUTE NEUTROPHILS 2028 1688-8287 - cells/uL * L YMPHOCYTES 53.6 - % * A BSOLUTE LYMPHOCYTES 3377 850-3900 - cells/uL * M ONOCYTES 12.0 - % * A BSOLUTE MONOCYTES 756 200-950 - cells/uL * E OSINOPHILS 1.3 - % * A BSOLUTE EOSINOPHILS 82 15-500 - cells/uL * B ASOPHILS 0.9 - % * A BSOLUTE BASOPHILS 57 0-200 - cells/uL * M PV 9.9 7.5-12.5 - fL * Dilcia Aden 06/26/2025 02: 49:28 PM EDT > pt informed ?LAB: LIPASE (606) (Collection Date & Time - 06/25/2025 11:55 AM)* Value Reference Range L IPASE 49 7-60 - U/L * Dilcia Aden 06/26/2025 02: 49:28 PM EDT > pt informed ?LAB: AMYLASE (243) (Collection Date & Time - 06/25/2025 11:55 AM)* Value Reference Range A MYLASE 42 21-101 - U/L * Dilcia Aden 06/26/2025 02: 49:28 PM EDT > pt informed Clinical Notes: repeat today, suspect acute inflammatory response but will need additional workup if these are trending upward. discussed importance of low fat diet and alcohol moderation...GLP1I should be helpful as well? * Follow Up: 3 Months * * Sign off status: Completed true * Provider: LUKE Luther Date: Generated for Printi ng/Davin/eTransmitting on: 09/11/2024 03:04 PM EST History and Physical Notes * Examination Category Sub-Category Detail Notes Category Not es General Examination Heart: Regular Rate and Rhythm, no murmur, rubs or gallops Lungs: coarse but clear and equal lung sounds with good air movement Abdomen: soft, NT/ND, BS pres ent General Pleasant and Coopera tive, NAD on RA,
--- OUTSIDE RECORDS SUMMARY | 2025-07-09 09:17 | XMS_ITS ---
Author Organization [facility] Address [address] [facility] [address] [place] [address] Care Team Providers Care Rn Transitional Care Name Role Phone Felicity Jay Primary Care Provider [phone] FELICITY JAY Unavailable Unavaila ble REASON FOR VISIT Breathing treatments Medications Medication SIG (Take, Route, Frequency, Duration) Notes Start Date End Date Status predniSONE 20 MG 2 tablets Orally Onc e a day; Duration: 5 days 07/09/2025 Active Albuterol Sulfate HFA 108 (90 Base) MCG/ACT 2 puffs as needed Inhalation every 6 hours; Duration: 30 days 07/09/2025 Active Encounters Encounter Location Date Provider Diagnosis [facility] [address] [facility] [address] [place] [address] 07/09/2025 Felicity Jay SOB (shortness of breath) R06.02 and Pneumonia of right lung due to infectious organism, unspecified part of lung J18.9 Assessments Encounter Date Diagnosis (ICD Code) Assessment Notes Treatment Notes Treatment Clinical Notes Section Notes 07/09/2025 SOB (shortness of breath) (ICD-10 - R06.02) 07/09/2025 Pneumonia of right lung due to infectious organism, unspecified part of lung (ICD-10 - J18.9) Plan Of Treatment Medication Medication Name Sig Start Date Stop Date Notes predniSONE 20 MG 2 tablets Orally Onc e a day; Duration: 5 days 07/09/2025 Albuterol Sulfate HFA 108 (9 0 Base) MCG/ACT 2 puffs as needed Inhalation every 6 hours; Duration: 30 days 07/09/2025 Pending Test Test Name Order Date X ray : Chest 07/09/2025 Next Appt Details Provider Name:Felicity Fung ce, 07/16/2025 10:15:00 AM, [address], [address], [place], [address], Progress Notes * Shemar KAUR RDOB:[birth year] (75 yo M)Acc No.[id number]:07/09/2025 Patient: Shemar HALL :1950 A ge:75 Y S ex:Male Address:[facility] [place], [address] * Refills Start Albuterol Sulfate HFA Aerosol Solution, 108 (90 Base) MCG/ACT, Inhalation, 1, 2 puffs as needed, every 6 hours, 30 days, Refills=1 Start predniSONE Tablet, 20 MG, Orally, 10 Tablet, 2 tablets, Once a day, 5 days, Refills=0 Subjective: * Chief Complaints: * B reathing treatments * Medical History: * Surgical History: * Hospitalization/Major Diagno stic Procedure: * Medications: Objective: * Vitals: * Physical Examination: Assessment: * Assessment: 1. S OB (shortness of breath) - R06.02 (Primary) 2 . P neumonia of right lung due to infectious organism, unspecified part of lung - J18.9 Plan: * Treatment: 2.?Pneumonia of right lung due to infectious organism, unspecified part of lung?Imaging: X ray : Chest* 3.?Others? Start Albuterol Sulfate HFA Aerosol Solution, 108 (90 Base) MCG/ACT, 2 puffs as needed, Inhalation,every 6 hours, 30 days, 1, Refills 1;?Start predniSONE Tablet, 20 MG, 2 tablets, Orally, Once a day, 5 days, 10 Tablet, Refills 0.?? * Procedure Codes: * true * Date: Generated for Kurtisi michael/Juan Albertog/eTransmitting on: 09/11/2024 03:03 PM EST
--- NOTE | 2025-07-12 15:03 | XR_ITS ---
FINAL REPORT CLINICAL HISTORY: right knee pain FINDINGS: RIGHT KNEE Three views were obtained. There is no fracture or dislocation. There are surgical changes from medial compartment arthroplasty. There is severe joint space narrowing of the lateral compartment. 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 Small joint effusion is identified. IMPRESSION: Advanced degenerative and postoperative changes. Reviewed, Interpreted and Dictated by Trever Galloway MD Transcribed by Opal Traylor Authenticated and [facility]
--- NOTE | 2025-07-12 15:03 | XR_ITS ---
FINAL REPORT TECHNIQUE: Two views CLINICAL HISTORY: SOB, PNEUMONIA RT LUNG COMPARISON: 06/16/2025 FINDINGS: No acute pulmonary density is present. Mediastinal contour is normal. Heart size is stable. IMPRESSION: Stable chest exam without acute disease Authenticated and [facility]
--- NOTE | 2025-07-12 15:03 | XR_ITS ---
FINAL REPORT CLINICAL HISTORY: left shoulder pain FINDINGS: LEFT SHOULDER Two views were obtained. There is no fracture or dislocation. There are severe degenerative changes of the glenohumeral joint. 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 There is mild AC joint arthropathy. No soft tissue abnormality is identified. IMPRESSION: Advanced degenerative changes. Calcific tendinitis. Reviewed, Interpreted and Dictated by Trever Galloway MD Transcribed by Opal Traylor Authenticated and . [facility]
--- OUTSIDE RECORDS SUMMARY | 2025-07-12 15:03 | XMS_ITS | Patient Health Record ---
Author Organization [facility] Address [address] [place] [address] Care Team Providers Care Delivery Crew Member Name Role Phone Self Referral, Self Primary [...] iew and pick correct strength-formula tion from [employer] options. If intended option is not shown, discontinue and re-order from Quick Search* Active traZODone HCl 100 MG Tablet 1 tab(s) orally 2 times a day Active Furosemide 40 MG Tablet ; Duration: 30 Days Active Sertraline HCl 25 MG Tablet ; Duration: 30 Days Active amLODIPine Besylate *Please revi ew and pick correct strength-formula tion from [employer] options. If intended option is not shown, [...] status? 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 work situation [...] confirmed Encounters Encounter Location Date Provider Diagnosis [facility] [address] [place] [address] 08/05/2024 Provider Migration Plan Of Treatment Future Test Test Name Order Date CmbL23: LEFT C3-5 Cervical M edial Branch Block CMBB - 2 level (98852-9 G000) 03/04/2022 CmbR23: RIGHT C3-5 Cervical Medial Branch Block CMBB - 2 level (12184-3 G000) 03/04/2022 CmbL35: LEFT C5-T1 Cervical Medial Branch Block CMBB - 3 level (54530-4 G000) 04/15/2022 CmbR35: RIGHT C5-T1 Cervical Medial Branch Block CMBB - 3 level (12484-3 G000) 04/15/2022 PT - Movement Analysis; Eval uation and Treatment (53386, 40106, 02231, 80680, 71885, 36084) 05/12/2022 Insurance Providers Payer Name Payer Address Payer Phone Subscriber Number Group Number Insured Name Patient Relationship to Insured Coverage Start Date Coverage End Date [employer] [address] [address] [place] [address] [id number] [id number] Virgilio Lester Self - patient is the insured 2 Medical (General) History Medical History History ICD Code Arthritis Hypertension Surgical History Surgery Date(Month/Year) Knee surgery-total left 2020 Knee surgery- partial replacement right 2018 Hospitalization History Reason Date(Month/Year) none
--- OUTSIDE RECORDS SUMMARY | 2025-07-12 15:04 | XMS_ITS | Patient Health Record ---
Author Organization [facility] Address [address] [place] [address] Care Team Providers Care Dental Professional Name Role Phone Torri Jay Primary Care Provider TORRI JAY Unavailable Unavaila ble Migration, Provider Unavailable Unavailable Allergies Allergen (clinical drug ingredient) Drug/Non Drug Allergy documented on EMR Reaction Allergy Type Onset Date Status OYSTERS (uncoded) terrible stoma ch pains Allergy Active Results Component Value Reference Range Notes LIPID PANEL, STANDARD (7600) Reviewed date:06/13/2025 01:02:07 PM Interpretation: Performing Lab:VIRGILIO, [facility] Owuw0428 [facility], [facility] HospitalOsjwBM[address] Ajit Delgado Notes/Report: NON-FASTING; NON-FASTING; NON-FASTING; NON-FASTING; [...] LDL-C. Sanjay SEWELL et al. SONDRA. 2013;310(19): 3522-8854 (http://education.[employer].Ideal Implant/faq/FAQ 164) CHOL/HDLC RATIO 3.3 <5.0 (calc) NON HDL CHOLESTEROL 67 <130 mg/dL (calc) For patients with diabetes plus 1 major ASCVD risk factor, treating to a non-HDL-C goal of <100 mg/dL (LDL-C of <70 mg/dL) is considered a therapeutic option. COMPREHENSIVE METABOLIC PANE (49650) Reviewed date:06/13/2025 01:02:08 PM Interpretation: Performing Lab:VIRGILIO, [employer] [address], NanoledgeBxbsID[address] Ajit Delgado Notes/Report: NON-FASTING; NON-FASTING; NON-FASTING; NON-FASTING; [...] Reviewed date:06/13/2025 01:02:08 PM Interpretation: Performing Lab:V[facility]ILIO, [employer] [address], NanoledgeJelgGJ[address] Ajit Delgado Notes/Report: NON-FASTING; NON-FASTING; NON-FASTING; NON-FASTING; [...] MPV 9.8 7.5-12.5 fL ABSOLUTE NEUTROPHILS 3615 5564-1943 cells/uL ABSOLUTE LYMPHOCYTES 016 069-5939 cells/uL ABSOLUTE MONOCYTES 500 200-950 cells/uL ABSOLUTE EOSINOPHILS 20 15-500 cells/uL ABSOLUTE BASOPHILS 40 0-200 cells/uL NEUTROPHILS 72.3 LYMPHOCYTES 16.5 MONOCYTES 10.0 EOSINOPHILS 0.4 BASOPHILS 0.8 LYME DISEASE ANTIBODIES (IGG ,IGM), IMMUNOBLOT (8593) Reviewed date:06/25/2025 11:38:25 AM Interpretation: Performing Lab:[facility], [facility], [facility] CenterWksdQX[address] Ajit Delgado Notes/Report: NON-FASTING; NON-FASTING; NON-FASTING; NON-FASTING; [...] Reviewed date:06/13/2025 01:02:08 PM Interpretation: Performing Lab:VIRGILIO [employer], Sustainable Food DevelopmentYzkuIL[address] Ajit Delgado Notes/Report: NON-FASTING; NON-FASTING; NON-FASTING; NON-FASTING; [...] diagnosis of diabetes in children. According to [place] Diabetes Association (ADA) guidelines, hemoglobin A1c <7.0% represents optimal control in non- diabetic patients. Different metrics may apply to specific patient populations. Standards of Medical Care in Diabetes(ADA). PSA, TOTAL (5363) Reviewed date:06/13/2025 01:02:09 PM Interpretation: Performing Lab:VIRGILIO [employer], ContactUs.comCiecYV[address] Ajit Delgado Notes/Report: NON-FASTING; NON-FASTING; NON-FASTING; NON-FASTING; NON-FAST FASTING:YES FASTING: YES PSA, TOTAL 0.51 < OR = 4.00 ng/mL The total PSA value from this assay system is standardized against the WHO standard. The test result will be approximately 20% lower when compared to the equimolar-standardized total PSA (Henny [place]). Comparison of serial PSA results should be interpreted with this fact in mind. This test was performed using the Siemens chemiluminescent method. Values obtained from different assay methods cannot be used interchangeably. PSA levels, regardless of value, should not be interpreted as absolute evidence of the presence or absence of disease. TEST AUTHORIZATION Reviewed date:06/12/2025 07:06:01 PM Interpretation: Performing Lab:[facility]ILIO [facility] [address] [facility]asticsSaint [facility], [facility] CenterRtzsMY[address] Ajit Delgado Notes/Report: NON-FASTING; NON-FASTING; NON-FASTING; NON-FASTING; NON-FAST FASTING:YES FASTING: YES TEST NAME: LYME DISEASE ANTIBODIES TEST CODE: [id number] CLIENT CONTACT: CRISTIANO DUMONT REPORT ALWAYS MESSAGE SIGNATURE The laboratory testing on this patient was verbally requested or confirmed by the ordering physician or his or her authorized bilingual call center representative after contact with an employee of [employer]. Federal regulations require that we maintain on file written authorization for all laboratory testing. Accordingly we are asking that the ordering physician or his or her authorized bilingual call center representative sign a copy of this report and promptly return it to the software client architect. Signature: COMMENT Please fax this signed form to [phone]. Please do not attempt to return this document by other methods. Documents will not be viewed by a bilingual call center representative. Please do not use this fax number for other service requests. Rapid Covid/Flu A-B Combo Reviewed date:06/11/2025 01:57:13 PM Interpretation: Performing Lab: Notes/Report: Rapid Covid neg Flu A neg Flu B neg X ray : Chest Reviewed date:06/19/2025 01:03:51 PM Interpretation: Performing Lab: Notes/Report: AMYLASE (243) Reviewed date:06/26/2025 02:49:39 PM Interpretation: Performing Lab:VIR[facility]ILIO, [facility] [address] [facility], [facility] CenterJhxnSG[address] Ajit Delgado Notes/Report: NON-FASTING; NON-FASTING; NON-FASTING; NON-FASTING AMYLASE 42 21-101 U/L LIPASE (606) Reviewed date:06/26/2025 02:49:39 PM Interpretation: Performing Lab:VIRGILIO, [employer] [address], Sustainable Food DevelopmentAnoqMK[address] Ajit Delgado Notes/Report: NON-FASTING; NON-FASTING; NON-FASTING; NON-FASTING LIPASE 49 7-60 U/L CBC (INCLUDES DIFF/PLT) (639 9) Reviewed date:06/26/2025 02:49:39 PM Interpretation: Performing Lab:VIRGILIO, [employer] [facility], Sustainable Food DevelopmentXspvDA[address] Ajit Delgado Notes/Report: NON-FASTING; NON-FASTING; NON-FASTING; NON-FASTING WHITE BLOOD CELL COUNT 6.3 3.8-10.8 Thousand/uL RED BLOOD CELL COUNT 4.09 4.20-5.80 Million/uL [...] MPV 9.9 7.5-12.5 fL ABSOLUTE NEUTROPHILS 2029 7345-8707 cells/uL ABSOLUTE LYMPHOCYTES 3377 850-3900 cells/uL ABSOLUTE MONOCYTES 756 200-950 cells/uL ABSOLUTE EOSINOPHILS 82 15-500 cells/uL ABSOLUTE BASOPHILS 57 0-200 cells/uL NEUTROPHILS 32.2 LYMPHOCYTES 53.6 MONOCYTES 12.0 EOSINOPHILS 1.3 BASOPHILS 0.9 COMMENT(S) Review of peripheral smear confirms automated results. COMPREHENSIVE METABOLIC PANE L (49308) Reviewed date:06/26/2025 02:49:39 PM Interpretation: Performing Lab:VIRGILIO, [facility] [address], NanoledgeJgbtQB[address] Ajit Delgado Notes/Report: NON-FASTING; NON-FASTING; NON-FASTING; NON-FASTING [...] 37 10-35 U/L ALT 42 9-46 U/L Reason For Referral Reason [facility] [place] to take over from [facility] Diagnosis 1 Chronic allergic rhi nitis (J30.9) Referral Organization [facility] Referring Provider First Name Torri Referring Provider Last Name Misty Referring Provider [facility] ctnallely Referred Organization [facility] Referred Address [address] ,[place], [place],[address],[place] Referred Provider Specialty Allergy/Immu nology Referral Priority Routine Reason [facility] Ortho for right knee and left shoulder pain, okay to order xrays prior if needed Diagnosis 1 Pain, joint, knee, r ight (M25.561) Referral Organization [facility] Referring Provider First Name Torri Referring Provider Last Name Misty [facility] Referred Organization [facility] Referred Address [address],[address],[place] Referred Provider Specialty Orthopedic S urgery General Notes Criselda Walters 2024 10:26:39 AM >spoke with patient Referral Priority Routine Referral Appointment Date 06/18/2025 Medications Medication SIG (Take, Route, Frequency, Duration) Notes Start Date End Date Status Azelastine HCl 0.05 % 1 gtt in each affe cted eye 2 times a day; Duration: 30 days Active predniSONE 20 MG 2 tablets Orally Onc e a day; Duration: 5 days 07/09/2025 Active Fish Oil 1000 MG 1 cap(s) orally daily Active hydroCHLOROthiazide 25 MG TAKE 1 TABLET BY MOUTH DAILY; Duration: 90 Active Rosuvastatin Calcium 20 MG TAKE 1 TABLET BY MOUTH EVERY DAY; Duration: 90 Active Celecoxib 100 MG TAKE 1 CAPSULE BY MOUTH TWICE DAILY; Duration: 90 Active Sildenafil Citrate 100 MG 1 tab(s) orall y once a day as needed; Duration: 30 days 03/26/2023 Active traZODone HCl 100 MG 1 tab(s) orally onc e a day (at bedtime); Duration: 90 days Active amLODIPine Besylate 10 MG 1 tab(s) orall y once a day; Duration: 30 days Active Sertraline HCl 50 MG TAKE 1 TABLET BY MO UTH DAILY; Duration: 90 Active Vitamin D3 1000 UNIT as directed orally once a day; Duration: 30 day(s) Active Vitamin C 500 MG 1 tab(s) orally once a day; Duration: 30 day(s) Active Montelukast Sodium 10 MG TAKE 1 TABLET B Y MOUTH DAILY; Duration: 90 Active TUMERICK 500MG ONE TABLET PO ONCE A DAY Active Levocetirizine Dihydrochlori de 5 MG 1 tab(s) orally once a day (in the evening); Duration: 90 days Active Nebivolol HCl 10 MG TAKE 1 TABLET BY MARGIE TH EVERY DAY; Duration: 90 Active Tamsulosin HCl 0.4 MG TAKE 2 CAPSULES BY MOUTH DAILY; Duration: 30 Active Azelastine HCl Activ e Zepbound 15 MG/0.5ML 0.5 mL Subcutaneous once a week; Duration: 28 days Active Albuterol Sulfate HFA 108 (9 0 Base) MCG/ACT 2 puffs as needed Inhalation every 6 hours; Duration: 30 days 07/09/2025 Active Immunizations Vaccine Route Administration Date Status [...] Status W/U Status Risk Notes Problem Sciatica (81597394) Lumbago with sciatica, right side (M54.41) Active confirmed Problem Sciatica (43394440) Lumbago with sciatica, left side (M54.42) Active confirmed Problem Obstructive uropathy (1352508) Other obstructive and reflux uropathy (N13.8) Active confirmed Problem Localized edema (5488140) Localized edema (R60.0) Active confirmed Problem Osteoarthritis (665315715) Osteoarthritis (M19.90) Active confirmed Problem Essential hypertension (65581833) Hypertension, essential (I10) Active confirmed Problem Allergic rhinitis (08371104) Chronic allergic rhinitis (J30.9) Active confirmed Problem Obese class I (691083006267027) BMI 33.0-33.9,adult (Z68.33) Active confirmed Problem Arthralgia of the pelvic region and thigh (142219639) Left hip pain (M25.552) Active confirmed Problem Chronic pain (30912648) Other chronic pain (G89.29) Active confirmed Problem Obesity (394022275) Obesity (BMI 30-39.9) (E66.9) Active confirmed Problem Skin lesion (05984706) Skin lesion (L98.9) Active confirmed Problem Erectile dysfunction (disorder) (267005971) Erectile dysfunction, unspecified erectile dysfunction type (N52.9) Active confirmed Problem Voiding dysfunction (415167858) Voiding dysfunction (N39.8) Active confirmed Problem Lymphedema (097592098) Lymphedema of both lower extremities (I89.0) Active confirmed Problem Fatty liver (899370209) Fatty liver (K76.0) Active confirmed Problem Edema (712664163) Lower extremit y edema (R60.0) Active confirmed Problem Restless legs (27866043) Restless leg (G25.81) Active confirmed Problem Obese class II (278728969804171) BMI 35.0-35.9,adult (Z68.35) Active confirmed Problem Daytime somnolence (779768709565) Daytime somnolence (R40.0) Active confirmed Problem Sleep disorder (58684910) Sleep disorder (G47.9) Active confirmed Problem Lower urinary tract symptoms due to benign prostatic hypertrophy (83470841091483) Benign prostatic hyperplasia with lower urinary tract symptoms (N40.1) Active confirmed Problem Pure hypercholesterolemia (733299512) Pure hypercholesterolemia (E78.00) Active confirmed Problem 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 confirmed Problem Single episode of major depression in full remission (13179887) Major depressive disorder with single episode, 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) Active confirmed Problem Sciatica (65540799) Lumbago of m ultiple sites in spine with sciatica (M54.40) Active confirmed Problem Hearing loss (13412702) Decreased hearing of both ears (H91.93) Active confirmed Problem Alcohol dependence (51191211) Alcohol dependence, daily use (F10.20) Active confirmed Problem Gastroesophageal reflux disease (986725606) Gastroesophageal reflux disease, unspecified whether esophagitis present (K21.9) Active confirmed Problem Cervical arthritis (208142339) Cervical arthritis (M47.812) Active confirmed Problem Obstructive sleep apnea syndrome (59763953) Moderate obstructive sleep apnea (G47.33) Active confirmed Vital Signs Heart Rate 96 /min 06/25/2025 Temperature 97.6 degrees Fahrenheit 06/25/2025 Oximetry 97 06/25/2025 Blood pressure diastolic 70 mm Hg 06/25/2025 Height 6 ft in 06/25/2025 Blood pressure systolic 112 mm Hg 06/25/2025 Weight 224.2 lbs 06/25/2025 BMI 30.4 kg/m2 06/25/2025 Encounters Encounter Location Date Provider Diagnosis [facility] [address] [facility] [address] [place] [address] 12/02/2024 Provider Migration Nasal congestion R09.81 [facility] [address] [facility] [address] [place] [address] 07/20/2024 Torri Jay Bronchitis J40 and L oose stools R19.5 [facility] [address] [facility] [address] [place] [address] 10/05/2024 Torri Jay Diastasis recti M62. 08 ; Abdominal wall defect, acquired M95.8 ; Nasal congestion R09.81 ; Obesity, Class II, BMI 35-39.9 E66.812 ; BMI 35.0-35.9,adult Z68.35 and Weight loss counseling, encounter for Z71.3 [facility] [address] [facility] [address] [place], [place] [address] 02/06/2025 Torri Misty Obesity, Class II, B MO 35-39.9 E66.812 ; Weight loss counseling, encounter for Z71.3 ; BMI 33.0-33.9,adult Z68.33 and Chronic allergic rhinitis J30.9 [facility] [address] [facility] [address] [place] [address] 06/11/2025 Torri Misty Body aches R52 ; Med icare annual [...] apnea G47.33 and Obesity (BMI 30-39.9) E66.9 [facility] [address] [place] [address] 06/25/2025 Torri Jay Pneumonia of right l ower lobe due to infectious organism J18.9 ; Elevated liver enzymes R74.8 and Fatty liver K76.0 [facility] [place] [address] [address] 07/14/2024 Torritino RahmanMisty [facility] [place] [address] [address] 07/24/2024 Torri Misty [facility] [address] [place] [address] 09/05/2024 Torri Jay CEM (obstructive sle ep apnea) G47.33 ; Obesity, Class II, BMI 35-39.9 E66.9 ; Daytime somnolence R40.0 ; BMI 35.0-35.9,adult Z68.35 ; Gastroesophageal reflux disease, unspecified whether esophagitis present K21.9 ; Sleep disorder G47.9 and Hypertension, essential I10 [facility] [address] [place] [address] 10/31/2024 Torri Misty [facility] [address] [place] [address] 11/27/2024 Torri Misty [facility] [address] [place] [address] 11/27/2024 Torri Misty [facility] [address] [place] [address] 12/25/2024 Torri Misty [facility] [address] [place] [address] 01/12/2025 Torri Misty [facility] [address] [place] [address] 01/16/2025 Torri Misty [facility] [address] [place] [address] 01/23/2025 Torri Misty [facility] [address] [place] [address] 02/19/2025 Torri Misty [facility] [address] [place] [address] 03/21/2025 Torri Misty [facility] [address] [place] [address] 03/26/2025 Torri Misty [facility] [address] [place] [address] 04/16/2025 Torri Misty [facility] [address] [place] [address] 05/03/2025 Torri Misty [facility] [address] [place] [address] 05/07/2025 Torri Misty [facility] [address] [place] [address] 05/16/2025 Torri Misty [facility] [address] [place] [address] 06/06/2025 Torri Misty Chronic allergic rhi nitis J30.9 and Nasal congestion R09.81 [facility] [address] [facility] [address] [place] [address] 06/12/2025 Torri Misty Pain, joint, knee, r ight M25.561 and Shoulder pain, left M25.512 [facility] [address] [facility] [address] [place] [address] 06/12/2025 Torri Misty Elevated liver enzym es R74.8 [facility] [address] [place] [address] 06/12/2025 Torri Misty [facility] [place] [address] [address] 06/15/2025 Torri Misty [facility] [address] [place] [address] 06/15/2025 Torri Misty Body aches R52 and A cute cough R05.1 [facility] [place] [address] [address] 06/22/2025 Torri Misty [facility] [address] [address] 07/02/2025 Torri Misty [facility] [address] [place] [address] 07/09/2025 Torri Misty SOB (shortness of br eath) R06.02 and Pneumonia of right lung due to infectious organism, unspecified part of lung J18.9 [facility] [place] [address] [address] 07/09/2025 Torri Misty Assessments Encounter Date Diagnosis (ICD [...] apnea) (ICD-10 - G47.33) 10/05/2024 Diastasis recti (ICD -10 - M62.08) CT imaging would be required to officially diagnose possible hernia but he is really asymptomatic at this point and has no significant visual defects. Recommend watchful waiting but strict return precautions and reasons for imaging were reviewed. 10/05/2024 Abdominal wall defec t, acquired (ICD-10 - M95.8) 02/06/2025 Weight loss counseli michael, encounter for (ICD-10 - Z71.3) 02/06/2025 Obesity, Class II, B MO 35-39.9 (ICD-10 - E66.812) complicates all aspects of care, would certainly benefit from continued weight loss. discussed importance of resistance training as tolerating, good protein and water intake. 06/06/2025 Chronic allergic rhinitis (ICD-10 - J30.9) 06/11/2025 Body aches (ICD-10 - R52) infectious? neg viral testing today. labs as noted which will evaluate WBC/differentia l and additional testing may be recommended 06/12/2025 Pain, joint, knee, right (ICD-10 - M25.561) 06/12/2025 Elevated liver enzym es (ICD-10 - R74.8) 06/15/2025 Body aches (ICD-10 - R52) 06/15/2025 Acute cough (ICD-10 - R05.1) 06/25/2025 Elevated liver enzym es (ICD-10 - R74.8) repeat today, suspect acute inflammatory response but will need additional workup if these are trending upward. discussed importance of low fat diet and alcohol moderation...GL P1I should be helpful as well 06/25/2025 Pneumonia of right lower lobe due to infectious organism (ICD-10 - J18.9) antibiotics complete and symptoms improving but not resolved...rec update labs as noted, encouraged increasing activity as tolerated 07/09/2025 Pneumonia of right l marilyn due to infectious organism, unspecified part of lung (ICD-10 - J18.9) 07/09/2025 SOB (shortness of breath) (ICD-10 - R06.02) 06/12/2025 Shoulder pain, left (ICD-10 - M25.512) 06/25/2025 Fatty liver (ICD-10 - K76.0) 06/11/2025 Medicare annual wellness visit, subsequent (ICD-10 - Z00.00) screening exams and vaccinations UTD for age/season, no concerns about falls or cognitive changes at this time 02/06/2025 BMI 33.0-33.9,adult (ICD-10 - Z68.33) 06/11/2025 Chronic nasal congestion (ICD-10 - R09.81) has consulted with call or contact centre operator/ENT, recommend continue current regimen 06/06/2025 Nasal congestion (ICD-10 - R09.81) 12/02/2024 Nasal congestion (ICD-10 - R09.81) 10/05/2024 Nasal congestion (ICD-10 - R09.81) Samples of nasal saline provided. Recommend use every night. Continue nasal sprays. Trial of Xyzal and continue follow-up with call or contact centre operator 09/05/2024 Obesity, Class II, B MO 35-39.9 (ICD-10 - E66.9) 09/05/2024 Daytime somnolence (ICD-10 - R40.0) 10/05/2024 Obesity, Class II, B MO 35-39.9 (ICD-10 - E66.812) complicates all aspects of care, would certainly benefit from weight loss, good candidate for GLP1I. Will have to investigate insurance coverage 02/06/2025 Chronic allergic rhinitis (ICD-10 - J30.9) being followed routinely by call or contact centre operator for immunotherapy but their office has closed recently, new referral initiated as noted 06/11/2025 Daytime somnolence (ICD-10 - R40.0) improved some with weight loss, monitor 10/05/2024 BMI 35.0-35.9,adult (ICD-10 - Z68.35) 09/05/2024 BMI 35.0-35.9,adult (ICD-10 - Z68.35) 06/11/2025 Benign prostatic hyperplasia with lower urinary tract symptoms (ICD-10 - N40.1) continue flomax, urology following as well 09/05/2024 Gastroesophageal ref lux disease, unspecified whether esophagitis present (ICD-10 - K21.9) 10/05/2024 Weight loss counseli michael, encounter for (ICD-10 - Z71.3) 06/11/2025 Other obstructive an d reflux uropathy (ICD-10 - N13.8) 06/11/2025 Hypertension, essent ial (ICD-10 - I10) well controlled on current regimen 09/05/2024 Sleep disorder (ICD- 10 - G47.9) 09/05/2024 Hypertension, essent ial (ICD-10 - I10) 06/11/2025 Pure hypercholesterolemia (ICD-10 [...] would like to consult with orthopedics at [facility] to review options 06/11/2025 Pain, joint, shoulde r, left (ICD-10 - M25.512) would like to consult with orthopedics at [facility] to review options 06/11/2025 Moderate obstructive sleep apnea (ICD-10 - G47.33) CPAP not well tolerated. Hopefully will improve with additional weight loss, Zepbound 06/11/2025 Obesity (BMI 30-39.9 ) (ICD-10 - E66.9) complicates all aspects of care but improved markedly on Zepbound Plan Of Treatment Pending Test Test Name Order Date X ray : Chest 07/09/2025 Ultrasound : Right Upper Quadrant 2024 X ray : Knee, Right 06/12/2025 X ray : Shoulder, Left 06/12/2025 Sleep Study 09/05/2024 Physical Therapy 03/28/2019 C-CBC 08/29/2019 C-CMP 08/29/2019 C-LIPID PANEL 08/29/2019 C-HGBA1C 08/29/2019 Physical Therapy : Lymphedema 06/02/2022 Physical Therapy : Lymphedema 04/22/2023 M-Vitamin B12 11/17/2023 M-Vitamin D 25 Hydroxy 11/17/2023 M-COVID PCR SINGLE RAPID 08/28/2020 M-MINIRP 06/15/2025 Next Appt Details Provider Name:Torri Fung ce, 07/16/2025 10:15:00 AM, [address] [facility] [address], [place], [address], Insurance Providers Payer Name Payer Address Payer Phone Subscriber Number Group Number Insured Name Patient Relationship to Insured Coverage Start Date Coverage End Date [employer] [address] [address] [place] [address] [id number] Joe Lester Self - patient is the insured Medications Administered Medication Instructions Date of Administration Dosage Notes Dexamethasone 4mg Injection 08/24/2023 4 mg Dexamethasone 4mg Injection 01/12/2024 4 mg Triamcinolone Acetonide 40mg Injection 10/12/2019 1 mL Medical (General) History Medical History History ICD Code HTN Sleep disorder Depressive d/o ED HLD BPH Degenerative arthritis and DDD CEM, moderate on 2023 sleep study Surgical History Surgery Date(Month/Year) R knee replacement 2016 Lt knee replacement 08/2020 colonoscopy 10/30/2021
--- OUTSIDE RECORDS SUMMARY | 2025-07-12 15:05 | XMS_ITS | Data Portability ---
Author Organization [facility] CL[facility] Address [address] [facility] [address] [place] [address] Care Team Providers Care Tutoring Manager Name Role Phone [facility] Primary Care Provider Assessment Encounter Date Assessment Date Assessment LastModified by Organization Details LastModified Time 09/03/2022 09/03/2022 Closely monitor PSA trend medical management lower urinary symptoms with tamsulosin. [email or web address] Not available 09/03/2022 13:52:09 12/09/2023 12/09/2023 Closely monitor PSA trend. Medical management lower urinary symptoms with tamsulosin. [email or web address] Not available 12/10/2023 08:10:26 12/21/2024 12/21/2024 74-year-old [...] [facility] [place] [facility], [address], [address], [place], [address], 5 13:49:47 surgical pathology study 2024 025 [facility], [address] [place], [address], 5 10:13:22 urinalysis panel, auto 2023 024 [email or web address] 14 [facility] [place] [facility], [address], [facility] [address], [place], [address], 4 08:10:15 PSA, serum or plasma [address] (Laboratory), [address], [place], [address], 4 16:10:26 PSA, serum or plasma 2022 023 [facility] (Laboratory), [address], [place], [address], 3 14:49:13 Referral None recorded. Procedures None recorded. Surgeries None recorded. Imaging None recorded. Medication Orders finasteride 5 mg tablet 2024 025 [facility], [address] [place], [place], [id number], 5 13:49:54 silodosin 8 mg capsule 2024 025 [facility], [address] [place], [id number], 5 13:49:53 tamsulosin 0.4 mg capsule 2023 024 [email or web address] 14 [facility] #[id number], [address] [place], [place], [id number], 5 13:49:17 tamsulosin 0.4 mg capsule 2022 023 [email or web address] 14 [facility] #[id number], [address] , [place], [place], [id number], 13:49:17 Patient TargetsNo targets recorded. Patient Instructions Encounter Date Encounter Id Patient Instructions Last Modified By Organization Details Last Modified Time 09/03/2022 [id number] learning about healthy weight [email or web address] Not available 09/03/2022 13:50:51 11/17/2024 [id number] General Skin Protection: - SPF 30 or [...] conditions. [email or web address] Not available 11/17/2024 09:57:44 12/21/2024 [id number] learning about healthy weight [email or web address] Not available 12/21/2024 13:49:47 - Stop taking [...] auto Unknown Analyte Clean Catch Not Available [facility] [place] With [address], [place], [address], 12/09/2023 13:40:17 12/09/19 24 12/09/2023 urina lysis panel , auto Unknown Analyte Yellow Not Available [facility] [place] With [address], [place], [address], 12/09/2023 13:40:17 12/09/19 24 12/09/2023 urina lysis panel , auto Unknown Analyte Clear Not Available [facility] With [address], [place], [address], 12/09/2023 13:40:17 12/09/19 24 12/09/2023 urina lysis panel , auto Unknown Analyte 1.010 Not Available [facility] With [address], [place], [address], 12/09/2023 13:40:17 12/09/19 24 12/09/2023 urina lysis panel , auto Unknown Analyte 1.003- 1.035 Not Available [facility] With [address], [place], [address], 12/09/2023 13:40:17 12/09/19 24 12/09/2023 urina lysis panel , auto Unknown Analyte 7.0 Not Available [facility] With [address], [place], [address], 12/09/2023 13:40:17 12/09/19 24 12/09/2023 urina lysis panel , auto Unknown Analyte 5.0-8. 0 Not Available [facility] With [address], [place], [address], 12/09/2023 13:40:17 12/09/19 24 12/09/2023 urina lysis panel , auto Unknown Analyte Negati ve Not Available [facility] With [address], [place], [address], 12/09/2023 13:40:17 12/09/19 24 12/09/2023 urina lysis panel , auto Unknown Analyte Negati ve Not Available [facility] With [address], [place], [address], 12/09/2023 13:40:17 12/09/19 24 12/09/2023 urina lysis panel , auto Unknown Analyte Negati ve Not Available [facility] With [address], [place], [address], 12/09/2023 13:40:17 12/09/19 24 12/09/2023 urina lysis panel , auto Unknown Analyte Negati ve Not Available [facility] With [address], [place], [address], 12/09/2023 13:40:17 12/09/19 24 12/09/2023 urina lysis panel , auto Unknown Analyte Negati ve Not Available [facility] With [address], [place], [address], 12/09/2023 13:40:17 12/09/19 24 12/09/2023 urina lysis panel , auto Unknown Analyte Negati ve Not Available [facility] With [address], [place], [address], 12/09/2023 13:40:17 12/09/19 24 12/09/2023 urina lysis panel , auto Unknown Analyte Normal Not Available [facility] With [address], [place], [address], 12/09/2023 13:40:17 12/09/19 24 12/09/2023 urina lysis panel , auto Unknown Analyte Normal Not Available [facility] With [address], [place], [address], 12/09/2023 13:40:17 12/09/19 24 12/09/2023 urina lysis panel , auto Unknown Analyte Negati ve Not Available [facility] With [address], [place], [address], 12/09/2023 13:40:17 12/09/19 24 12/09/2023 urina lysis panel , auto Unknown Analyte Negati ve Not Available [facility] With [address], [place], [address], 12/09/2023 13:40:17 12/09/19 24 12/09/2023 urina lysis panel , auto Unknown Analyte Normal Not Available [facility] With [address], [place], [address], 12/09/2023 13:40:17 12/09/19 24 12/09/2023 urina lysis panel , auto Unknown Analyte Normal 1 mg/dl Not Available [facility] With [address], [place], [address], 12/09/2023 13:40:17 12/09/19 24 12/09/2023 urina lysis panel , auto Unknown Analyte Negati ve Not Available [facility] With [address], [place], [address], 12/09/2023 13:40:17 12/09/19 24 12/09/2023 urina lysis panel , auto Unknown Analyte Negati ve Not Available [facility] With [address], [place], [address], 12/09/2023 13:40:17 12/09/19 24 12/09/2023 urina lysis panel , auto Unknown Analyte Negati ve Not Available [facility] With [address], [place], [address], 12/09/2023 13:40:17 12/09/19 24 12/09/2023 urina lysis panel , auto Unknown Analyte Negati ve Not Available [facility] [place] With [address], [place], [address], 12/09/2023 13:40:17 11/18/19 25 11/17/2024 SURGI ELIZABETH surgical SEE BELOW Brandon topat holog y Repor t NAME: ELIZABETHHenokSÁNCHEZ HALL AM PATH: [id number] PROCE DURE DATE: 11/17 SIGNO UT DATE: 11/21 Copy to: Diagn osis: 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, [place], [address], 11/21/2024 10:13:22 12/22/19 25 12/21/2024 urina lysis panel , auto Unknown Analyte Clean Catch Not Available [facility] [place] With [address], [place], [address], 12/21/2024 13:12:32 12/22/1912/21/2024 urina lysis panel , auto Unknown Analyte Yellow Not Available [facility] With [facility] [address], [place], [address], 12/21/2024 13:12:32 12/22/19 25 12/21/2024 urina lysis panel , auto Unknown Analyte Clear Not Available [facility] With [address], [place], [address], 12/21/2024 13:12:32 12/22/19 25 12/21/2024 urina lysis panel , auto Unknown Analyte 1.010 Not Available [facility] With [address], [place], [address], 12/21/2024 13:12:32 12/22/19 25 12/21/2024 urina lysis panel , auto Unknown Analyte 1.003 - 1.030 Not Available [facility] With [address], [place], [address], 12/21/2024 13:12:32 12/22/19 25 12/21/2024 urina lysis panel , auto Unknown Analyte 6.5 Not Available [facility] With [facility] [address], [place], [address], 12/21/2024 13:12:32 12/22/19 25 12/21/2024 urina lysis panel , auto Unknown Analyte 5.0 - 8.0 Not Available [facility] With [address], [place], [address], 12/21/2024 13:12:32 12/22/19 25 12/21/2024 urina lysis panel , auto Unknown Analyte Negati ve Not Available [facility] With [facility] [address], [place], [address], 12/21/2024 13:12:32 12/22/19 25 12/21/2024 urina lysis panel , auto Unknown Analyte Negati ve Not Available [facility] With [address], [place], [address], 12/21/2024 13:12:32 12/22/19 25 12/21/2024 urina lysis panel , auto Unknown Analyte Negati ve Not Available [facility] With [address], [place], [address], 12/21/2024 13:12:32 12/22/19 25 12/21/2024 urina lysis panel , auto Unknown Analyte Negati ve Not Available [facility] With [facility] [address], [place], [address], 12/21/2024 13:12:32 12/22/19 25 12/21/2024 urina lysis panel , auto Unknown Analyte Negati ve Not Available [facility] With [address], [place], [address], 12/21/2024 13:12:32 12/22/19 25 12/21/2024 urina lysis panel , auto Unknown Analyte Negati ve Not Available [facility] With [address], [place], [address], 12/21/2024 13:12:32 12/22/19 25 12/21/2024 urina lysis panel , auto Unknown Analyte Normal Not Available [facility] With [address], [place], [address], 12/21/2024 13:12:32 12/22/19 25 12/21/2024 urina lysis panel , auto Unknown Analyte Normal Not Available [facility] With [address], [place], [address], 12/21/2024 13:12:32 12/22/19 25 12/21/2024 urina lysis panel , auto Unknown Analyte Negati ve Not Available [facility] With [address], [place], [address], 12/21/2024 13:12:32 12/22/19 25 12/21/2024 urina lysis panel , auto Unknown Analyte Negati ve Not Available [facility] With [address], [place], [address], 12/21/2024 13:12:32 12/22/19 25 12/21/2024 urina lysis panel , auto Unknown Analyte Normal Not Available [facility] With [address], [place], [address], 12/21/2024 13:12:32 12/22/19 25 12/21/2024 urina lysis panel , auto Unknown Analyte Normal Not Available [facility] With [address], [place], [address], 12/21/2024 13:12:32 12/22/19 25 12/21/2024 urina lysis panel , auto Unknown Analyte Negati ve Not Available [facility] With [address], [place], [address], 12/21/2024 13:12:32 12/22/19 25 12/21/2024 urina lysis panel , auto Unknown Analyte Negati ve Not Available [facility] With [address], [place], [address], 12/21/2024 13:12:32 12/22/19 25 12/21/2024 urina lysis panel , auto Unknown Analyte Negati ve Not Available [facility] With [address], [place], [address], 12/21/2024 13:12:32 12/22/19 25 12/21/2024 urina lysis panel , auto Unknown Analyte Negati ve Not Available [facility] [place] With [address], [place], [address], 12/21/2024 13:12:32 Result Notes None recorded. 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 2014 From Automate d Load;Pro vider: Don Kim;Sta tus: Active Not Available [facility] 6 05:42:04 Acute bronchit is 27307039 Active 2014 From Autom[employer] Load;Pro vider: Mary Mckee ;Status: Active Not Available [facility] 6 05:42:04 Acute sinusiti s 42870906 Completed 201401/19/2019 From Autom[employer] Load;Pro vider: Mary Mckee ;Status: Active TIANA ORTIZ, DRILLING FLUIDS SPECIALIST [address] [place], [address] , [facility] 9 15:00:32 Senile hyperker atosis 898526045 Active 2015 From Automate d Load;Pro vider: Markel Krueger tatus: Active Not Available [facility] 6 05:42:04 Hypertro phic conditio n of skin 95946753 Active 2015 From Autom[employer] d Load;Pro vider: Markel Krueger tatus: Active Not Available [facility] 6 05:42:04 Pain 86236111 Active 2015 From Automate d Load;Pro vider: Markel Krueger tatus: Active Not Available [facility] 6 05:42:04 Disorder of upper respirat ory system 530109793 Active 2015 From Autom[employer] d Load;Pro vider: Don Kim;Sta tus: Active Not Available [facility] 6 05:42:01 Cough 96519766 Active 2015 From Autom[employer] d Load;Pro vider: Don Kim;Sta tus: Active Not Available [facility] 6 05:42:01 Neck pain 09872169 Active 2015 From Automate d Load;Pro vider: Don Kim;Sta tus: Active Not Available [facility] [address] 05:42:[address] Concept Completed 201501/19/2019 From Automate d Load;Pro vider: Marybeth Montaño; Status: Active TIANA ORTIZ APRN [address] [place], [place], [address] [place] [address] , [facility] 9 15:00:14 Mood disorder Completed 201501/19/2019 From Automate d Load;Pro vider: Marybeth Montaño; Status: Active TIANA ORTIZ DRILLING FLUIDS SPECIALIST [address] [place], [address] , [facility] 9 15:00:12 Insomnia 971485073 Active 2015 From Automate d Load;Pro vider: Marybeth Montaño; Status: Active Not Available [facility] 6 05:42:04 Pain in right knee Active 2015 From Automate d Load;Pro vider: Mary Mckee ;Status: Active Not Available [facility] 6 05:42:04 Derangem ent of medial meniscus 342839641 Active 2015 From Automate d Load;Pro vider: Brandy Plata: Active Not Available [facility] 6 05:42:04 Cramp in lower leg associat ed with rest 274639997 Active 2015 From Automate d Load;Pro vider: Marybeth Montaño; Status: Active Not Available [facility] 6 05:42:04 Notes:: Depression Screening* Date:07/17/2016 Problem Notes None recorded. Procedures Surgical History Date Name Laterality Status Provider Name and Address Organization Details Recorded Time 12/08/19 DAK - Cryo AK completed Armand Barboza [facility] 12/07/2024 13:53:34 11/18/19 25 DAK - Cryo AK completed [facility] 11/17/2024 09:55:58 11/18/19 25 DAK - Biopsy, Tangential completed [facility] 11/17/2024 09:55:54 04/18/20 19 Excision Nail & Matrix completed THOR FARRELL DPM [address] [place], [address], [facility] 04/18/2019 10:45:11 01/25/20 19 Excision Nail & Matrix completed THOR FARRELL DPM [address] [place], [address], [facility] 01/24/2019 11:02:38 12/09/19 18 Airway Resistance completed Obdulia Mccord [facility] 12/08/2017 14:20:33 12/09/19 18 Diffusion Capacity completed Obdulia Mccord [facility] 12/08/2017 14:20:28 12/09/19 18 Lung Volumes, Plethysmography completed Obdulia Mccord [facility] 12/08/2017 14:20:24 12/09/19 18 Spirometry with Bronchodilator completed Obdulia Mccord [facility] 12/08/2017 14:20:38 11/16/19 18 EKG completed MARYBETH MONTAÑO APRN [address] [place], [address], [facility] 11/16/2017 17:23:56 04/30/20 17 Arthroscopic Surgery completed Sumaya Hawthorne [facility] 11/15/2017 08:43:11 08/30/18 68 Tonsillectomy completed Flory Day [facility] 02/03/2017 08:07:10 Imaging Results None recorded. Procedure Notes None recorded. Medical Equipment None Reported. Allergies Allergen ID Allergen Name Allergen Category Reaction Reaction Severity Criticality Documentation Date Start Date Code Code System Note Provider Name and Address Organization Details Recorded Time 746586 Lipitor medicatio n Not available Not available Not available 07/23/20162005 06464 5 RxNorm Comme nt: rajesh ricci es;Cr eated By: Angelita krish Kassie ;Crea deni Date: 2005 8:15: 24 AM; Not Available [facility] 6 12:52:52 854275 omeprazol e medicatio n Not available Not available Not available 07/23/20162008 7646 RxNorm Comme nt: didnt contr ol symto ms;Cr eated By: Aniket nazarioCre ated Date: 07/26 9:59: 00 AM; Not Available [facility] 6 12:52:52 648651 Relafen medicatio n Not available Not available Not available 07/24/20162005 52508 4 RxNorm Comme nt: stoma ch probl ems/t ingli ng;Cr eated By: Angelita rd Kassie ;Crea deni Date: 2005 8:15: 15 AM; Not Available [facility] 6 07:55:27 Medications Name Sig Start Date [...] e 137 mcg (0.1 %) nasal spray [place] 2 sprays twice a day by intranas al route. 09/14 completed Not Available Not Available Not Available fluticaso ne propionat e 50 mcg/actua tion nasal spray,tanisha pension [place] 1 spray every day by intranas al [...] Available Dymista 137 mcg-50 mcg/spray nasal spray [place] 1 spray twice a day by intranas [...] Updated DateTime 09/03/2022 185.42 cm 32.7 kg/m2 652765.91 g Magnolia Logant [facility] 09/03/2022 13:06:01 Date Recorded Body height Provider Name an d Address Organization Details Last Updated DateTime 11/17/2024 185.42 cm Tammi Domínguez [facility] 11/17/2024 09:24:33 Date Recorded Body height Body mass index (BMI) Body weight Provider Name and Address Organization Details Last Updated DateTime 12/09/2023 185.42 cm 32.7 kg/m2 774509.91 fannie Hernandez [facility] 12/09/2023 13:39:02 Date Recorded Body height Body mass index (BMI) Body weight Provider Name and Address Organization Details Last Updated DateTime 12/21/2024 185.42 cm 33.6 kg/m2 773122.05 fannie Hernandez [facility] 12/21/2024 13:05:24 Social History Question Answer Notes LastModified by Organizat ion Details LastModified Time Tobacco Smoking Status Former Smoker smokes 1 cigar about once/[facility] 12/08/2017 14:16:47 How Much Tobacco Do You [...] is your level of alcohol consumption? Moderate [email or web address] Information not available 12/07/2018 Mental Status None [...] Multiple Sclerosis N Proteinuria N Heart Attack ([place]) N Mental Illness N Diabetes N Ovarian Cancer N Seizures/Epilepsy N Genitourinary problem(s) N Congestive Heart Failure (CHF) N Kidney Failure N Sleep Apnea Y Bronchitis Y Heart Disease N Hypertension Y Immunizations Vaccine Type Date Status Note Provider Nam e and Address Organization Details Recorded Time Pneumococcal conjugate PCV 13 6 completed MARYBETH MONTAÑO APRN [address] [place] [address], [address], [facility] 05/09/2017 20:02:19 Past Encounters Encounter ID Performer Location Encounter Start Date Encounter Closed Date Diagnosis/Indication Diagnosis SNOMED-CT Code Diagnosis ICD10 Code Diagnosis IMO Codes Diagnosis Note [id number] BETH BRIAN MD SURGERY SCHEDULE [address] [place] [address] 09/22/2016 08:51:13 09/22/2016 08:55:35 [id number] MARYBETH MONTAÑ[place] [address] [place], [place] [address] 01/14/2017 09:18:58 01/14/2017 10:04:34 Hypertensive disorder 69606213 I10 Impotence of organic origin 895908372 N52.9 Familial c ombined hyperlipidemia 850400979 E78.4 Senile hyperkeratosis 39 5318055 L82.1 cetaphil for eczematous conditions . use daily. 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 Will require monitoring of oxygen saturation . He is stable for surgery. His ECG is stable with NSR. I have discussed which medication s to hold before surgery. Familial c ombined hyperlipidemia 625953812 E78.4 Pain in right knee 78702 77674 73735 M25.561 Hypertensive disorder 38 720622 I10 Body mass index 30+ - obesity 750596296 Z68.39 Z68.31 [id number] MARYBETH MONTAÑO [place] [address] 11/15/2017 08:23:18 11/15/2017 09:13:56 Body mass index 30+ - obesity 542423787 Z68.39 Z68.31 Dyspnea 907962836 R06.00 hx of smoking. I do not think this is cardiac in nature, ECG was wnl. Could be untreated sleep apnea. Sleep apnea 16448635 G47 .30 explained he may need evaluation again, could have worsened. [id number] ALAINA STOKES MD PULMONARY [address] [facility], [address] [place] [address] 12/08/2017 13:38:46 12/14/2017 13:33:30 Dyspnea on exertion 13662094 R06.09 With a non specific vent impairment [...] work on weight loss instead. Allergic rhinitis 144980 04 J30.9 [id number] ALAINA STOKES MD PULMONARY [address] [facility], [address] [place] [address] 03/24/2018 13:57:18 03/28/2018 07:06:37 Dyspnea on exertion 57123126 R06.09 With a non specific vent impairment [...] he wants further work up. Allergic rhinitis 432522 04 J30.9 [id number] MARYBETH MONTAÑO APRN INTER[facility] MED[facility] [place] [address] [place] [id number] 09/14/2018 09:41:31 09/21/2018 12:29:36 Adult health examination 502836032 Z00.00 Familial c ombined hyperlipidemia 843379852 E78.49 Hypertensive disorder 38 209182 I10 recheck at work and let me know how it's running Testicular hypofunction 315074043 E29.1 [id number] MARIANNE RANKIN MD RHEUMATOL OGY [address] [place] [address] 12/07/2018 08:07:15 12/07/2018 09:25:47 Generalized osteoarthritis 878780694 M15.9 a very pleasant 68-year-ol d gentleman [...] 6 months. Chronic low back pain 27 5464983 M54.5 in terms of lower back pain, [...] is comfortabl e with the discussion . [id number] TIANA ORTIZ APRN INTERNAL MEDICINE [address] [address] 01/19/2019 14:32:00 01/25/2019 16:09:33 Left ingrown toenail with infection [id number] L60.0 Bactrim DS for 7 days, contact me if we need to extend the course, I will submit a referral to a Manager Hematology in [place] he would like to go to. [id number] [facility] [address] ,[address] [place] [address] 01/24/2019 09:15:23 01/24/2019 11:34:01 Ingrowing nail [id number] L60.0 Paronychia of toe 478462 002 L03.039 Pain in left foot 701035 7803 20196 M79.808 [id number] TIANA ORTIZ APRN [facility] [address] [address] 02/14/2019 09:22:56 02/17/2019 09:24:39 Right side sciatica [id number] 58358 M54.31 Baseline x-ray completed with degenerati on in the spine. Likely has a denture aggravated disc causing his sciatica. He also has very tight piriformis and hamstring muscles. Advised Heat, Formal PT 6 weeks, return for f/u at that time. 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 81 901313 F52.32 [id number] LILY ALVARADO MD [facility] [address] [place] [address] 8 11/20/2021 13:43:17 11/26/2021 17:46:06 Benign prostatic hyperplasia with outflow obstruction 622378389 N40.1 Primary er ectile dysfunction 630255347 N52.9 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 81 967126 F52.32 [id number] LILY ALVARADO MD [facility] [address] [place] [address] 8 01/01/2022 14:00:28 01/10/2022 15:36:03 Benign prostatic hyperplasia with outflow obstruction 826351887 N40.1 Acquired g eneralized anorgasmia 602406729 F52.32 [id number] LILY ALVARADO MD [facility] [address],[place] [address] 8 03/05/2022 14:46:36 03/16/2022 10:10:30 Benign prostatic hyperplasia with outflow obstruction 217796991 N40.1 Primary er ectile dysfunction 976069511 N52.9 [id number] LILY ALVARADO MD [facility] [address],[place] [address] 09/03/2022 12:55:02 09/09/2022 11:13:12 Benign prostatic hyperplasia with outflow obstruction 436686526 N40.1 Nocturia 465793554 R35.1 [id number] LILY ALVARADO MD [facility] [address] [address] 12/09/2023 13:21:39 12/11/2023 04:43:16 Benign prostatic hyperplasia with outflow obstruction 489536327 N40.1 Nocturia 697207152 R35.1 [id number] HE VEE MD [address] [address] 11/17/2024 09:07:46 11/17/2024 10:23:31 Multiple benign melanocytic nevi 776027432 D22.5 L81.4 L82.1 D18.01 Benign appearing lesions.Re [...] Neoplasm o f uncertain behavior of skin 99501937 D48.5 Location: L superior helix r/o BCC vs scar tissue - Bx performed today (see proc note(s) & surgical path order below for further detail, including location(s ) & DDX(s))- Wound care instructio ns reviewed/h andout provided- Will call with results & arrange tx as indicated at that time History of malignant neoplasm of skin 016676039 Z85.828 History of non melanoma skin cancer.No evidence of recurrence Actinic keratosis 791622 007 L57.0 -Precancer ous nature discussed -Will TX with LN2 today (see proc note) -FUP if sites persist after [place] [id number] HE VEE MD [facility] [address] [place] [address] 12/07/2024 13:42:20 12/07/2024 14:35:04 Actinic keratosis 954257793 L57.0 The nature of the diagnosis was explained. Pre-cancer ous.Biopsy proven [place]. PATH: [id number] 0Will treat with LN2.F/u if treated lesions persist. [id number] LILY ALVARADO MD [facility] [address] [place] [address],[place] [address] 12/21/2024 12:51:24 12/22/2024 10:21:57 Benign prostatic hyperplasia with outflow obstruction 938528440 N40.1 N13.8 [id number] Discontinu e tamsulosin . Begin alternativ e pharmacoth erapy for symptom control. Regular follow-up to evaluate symptom improvemen t. Nocturia 333567751 R35.1 [id number] Discontinu e tamsulosin due to inadequate control. [...] (MEDICARE REPLACEMENT/ ADVANTAGE - PPO) Joe Lester [id number] Joe Lester 11/17/2024 1 [employer] (PPO) Joe Lester [id number] Joe Lester 01/01/2025 1 [employer] (MEDICARE REPLACEMENT/ ADVANTAGE - PPO) Joe Lester [id number] Joe Lester 11/17/2024 [employer] (MEDICARE REPLACEMENT/ ADVANTAGE - PPO) Joe Lester [id number] Joe Lester Notes Date Note Type Note [...] 0 to once nightly. 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 He takes tamsulosin with improvement of lower urinary symptoms. No hesitancy. No urgency. Daytime frequency normal. Nocturia 0-1 times. No gross hematuria. No dysuria. He reports PSA with PCP at [facility]. LILY ALVARADO MD [address] [place] [address], [phone], [facility] 12/10/2023 08:11:10 11/17/2024 text/html ROS as noted in the HPI Pt is here for a full body skin exam today.History of NMSC of L ear ( doesn't know when or where it was done)New ptSpots of concern today: top of left ear HE VEE MD [address] [place] [address], [phone], [facility] 11/19/2024 12:27:17 12/07/2024 text/html ROS as noted in the HPI Left superior helix- Bx proven ACTINIC KERATOSISPATH: [id number]: here for LN2. HE VEE MD [address] [place] [address], [phone], [facility] 12/07/2024 16:53:09 12/21/2024 text/html The patient [...] testing recommended; status unknown. LILY ALVARADO MD [address] [place] [address], [phone], [facility] 12/31/2024 18:59:17
--- OUTSIDE RECORDS SUMMARY | 2025-07-12 15:05 | XMS_ITS | Clinical Summary ---
Author Organization Healthcare Address [address] [place] [address] Care Team Providers Care Flux Core Welder Name Role Phone Don Kim MD Primary Care Provider [phone] Family History Medical History Relation Name Comments [...] of Treatment Not on file Care Teams Flux Core Welder Relationship Specialty Start Date End Date Don Kim MD [facility] [place] [address] PCP - General 01/10/21
== END 2025-07-12 23:59 | disposition home or self-care (01) ==
LOC: RAD 15:00
PROVIDERS: PCP Nurse Practitioner Family; Visit Provider Nurse Practitioner Family
DX: M19.012 Primary osteoarthritis, left shoulder (principal); M75.32 Calcific tendinitis of left shoulder; M17.11 Unilateral primary osteoarthritis, right knee; J18.9 Pneumonia, unspecified organism; Z98.890 Other specified postprocedural states
CPT/HCPCS: 71046; 73030; 73562